=== PATIENT | male | born 1955 | race Caucasian/White ===

== ENCOUNTER 2016-11-19 15:10 | Emergency (ER) | payer MEDICARE, MEDICAID ==
[2016-11-19 16:13] LABS: Hematocrit 48 % (42-52); Hemoglobin 16.2 g/dl (14.0-18.0); Mean Corpuscular HGB Conc 34 g/dl (31-36); Mean Corpuscular Hemoglobin 32 pg (27-31); Mean Corpuscular Volume 94 fL (80-94); Mean Platelet Volume 8 um3 (7.4-10.4); Red Blood Count 5.13 10^6/ul (4.0-5.4); Red Cell Distribution Width 14 % (10.5-15); White Blood Count 9.2 10^3/ul (3.5-10.8)
[2016-11-19] MEDS ORDERED: NS 0.9% 1000 ML* 1,000 ML IV ONE ×3 (16:17→20:17)
[2016-11-19 16:30] LABS: Troponin I 0.02 ng/mL (<0.04)
[2016-11-19 16:42] LABS: Albumin 3.8 g/dL (3.2-5.2); BUN/Creatinine Ratio 21.8 (8-20); Calcium 9.4 mg/dL (8.6-10.3); EGFR African American 76.5 (>60); EGFR Non-African American 59.5 (>60); Potassium 4.9 mmol/L (3.5-5.0); Total Bilirubin 0.4 mg/dL (0.2-1.0); Total Protein 6.8 g/dL (6.4-8.9)
--- NOTE | 2016-11-19 16:45 | RAD ---
INDICATION: Chest pain COMPARISON: None TECHNIQUE: An AP portable view obtained at 1630 hours is submitted. FINDINGS: Bones/Soft Tissues: There are no acute bony findings. Cardiomediastinal: The cardiomediastinal silhouette is normal. Lungs: There are no infiltrates. Pleura: There are no pleural effusions. Other: None IMPRESSION: NO ACTIVE DISEASE
[2016-11-19] MEDS ORDERED: Insulin REGULAR(*) 1 UNITS UNIT IV PUSH ONE (16:49)
[2016-11-19 22:42] VITALS: BP 108/52
--- NOTE | 2016-11-21 06:41 | ED ---
Akil Torrez Janilya, scribed for Darrel Duke MD on 11/19/16 at 1643 . Abdominal Pain/Male - HPI Summary HPI Summary: A 61 y/o was BIBA to [facility] [place] for "having abnormal lab results" from yesterday's visit to the hospital. Pt reports he felt symptomatic for 2 weeks. The main complaint today is abd pain, specifically bloating, as well as back pain. He also reports vomiting and mild constipation. Pt denies diarrhea. Severity rated 8/10. - History of Current Complaint Chief Complaint: EDChestPainROMI Stated Complaint: DIABETIC ISSUES Time Seen by Provider: 11/19/16 15:55 Hx Obtained From: Patient Onset/Duration: Gradual Onset, Lasting Days, Still Present Timing: Constant Severity Initially: Moderate Severity Currently: Moderate Pain Intensity: 8 Pain Scale Used: 0-10 Numeric Associated Signs And Symptoms: Positive: Back Pain, Vomiting, Other - mild constipation. Negative: Diarrhea - Allergies/Home Medications Allergies/Adverse Reactions: Allergies Allergy/AdvReac Type Severity Reaction Status Date / Time Aspirin Allergy GI Upset Verified 08/27/15 11:48 ENVIRONMENTAL Allergy Rash And Uncoded 08/27/15 11:47 Itching WOOL Allergy Runny Nose Uncoded 08/27/15 11:46 PMH/Surg Hx/FS Hx/Imm Hx Endocrine/Hematology History: Reports: Hx Diabetes Cardiovascular History: Reports: Hx Congestive Heart Failure, Hx Hypercholesterolemia, Hx Hypertension, Other Cardiovascular Problems/Disorders - "Heart Disease" Respiratory History: Reports: Hx Chronic Obstructive Pulmonary Disease (COPD) GI History: Reports: Hx Gastroesophageal Reflux Disease, Other GI Disorders - "Hernia" History: Reports: Hx Kidney Stones, Hx Renal Disease - KIDNEY STONES BILATERALLY Musculoskeletal History: Reports: Hx Arthritis, Hx Back Problems, Hx Orthopedic Injury - Herniated discs, coccyx fracture, "degenerative spine" Sensory History: Reports: Hx Contacts or Glasses Opthamlomology History: Reports: Hx Contacts or Glasses Neurological History: Reports: Hx Migraine, Other Neuro Impairments/Disorders - Parkinsons, bilateral leg neurophathy Psychiatric History: Reports: Hx Anxiety, Hx Depression, Hx Inpatient Treatment , Hx Community Mental Health Tx, Hx Suicide Attempt - OD Denies: Hx Eating Disorder, Hx of Violent Episodes Against Others - Surgical History Surgery Procedure, Year, and Place: Appendectomy Infectious Disease History: No Infectious Disease History: Denies: Traveled Outside the [place] in Last 30 Days - Family History Known Family History: Positive: Cardiac Disease, Hypertension, Diabetes - Social History Alcohol Use: None Substance Use Type: Reports: Marijuana Substance Use Comment - Amount & Last Used: DAILY, LAST USED YESTERDAY Hx Tobacco Use: Yes Smoking Status (MU): Heavy Every Day Tobacco Smoker Review of Systems Positive: Abdominal Pain - bloating , Vomiting, Other - mild constipation. Negative: Diarrhea Positive: Arthralgia - back pain, Myalgia - back pain All Other Systems Reviewed And Are Negative: Yes Physical Exam - Summary Physical Exam Summary: GENERAL EXAM GENERAL: Awake, alert, oriented, no acute distress, very pleasant HEENT: Head is normocephalipolc, atraumatic, anicteric sclera, clear conjunctiva , mucous membranes moist, no erythema, no discharge, no lesions, neck is supple , trachea is midline, no JVD CARDIAC: Regular rate and rhythm, S1, S2, no rub, no murmur, no gallop, 2+ radial and pedal pulses bilaterally RESPIRATORY: Clear to auscultation bilaterally with no rales, rhonchi, or wheezes, non-tender ABDOMEN: Bowel sounds positive, no bruit, soft, non-tender, no CVA tenderness EXTREMITIES: No edema, warm, dry, moving all extremities in a grossly normal manner NEUROLOGICAL: Mood is appropriate, moving all extremities in a grossly normal manner Triage Information Reviewed: Yes Vital Signs On Initial Exam: Initial Vitals Temp Pulse Resp BP Pulse Ox 97.3 F 81 18 128/80 94 11/19/16 15:37 11/19/16 15:37 11/19/16 15:37 11/19/16 15:37 11/19/16 15:37 Vital Signs Reviewed: Yes - Dolly Coma Scale Coma Scale Total: 15 Diagnostics - Vital Signs Vital Signs Temp Pulse Resp BP Pulse Ox 11/19/16 16:05 82 18 111/68 90 11/19/16 16:00 17 88/68 11/19/16 15:50 113/37 11/19/16 15:37 97.3 F 81 18 128/80 94 - Laboratory Lab Results: Lab Results 11/19/16 11/19/16 11/19/16 Range/Units 15:47 16:00 16:00 WBC 9.2 (3.5-10.8) 10^3/ul RBC 5.13 (4.0-5.4) 10^6/ul Hgb 16.2 (14.0-18.0) g/dl Hct 48 (42-52) % MCV 94 (80-94) fL MCH 32 H (27-31) pg MCHC 34 (31-36) g/dl RDW 14 (10.5-15) % Plt Count 199 (150-450) 10^3/ul MPV 8 (7.4-10.4) um3 Neut % (Auto) 56.7 (38-83) % Lymph % (Auto) 31.1 (25-47) % Oto[place] % (Auto) 7.8 (1-9) % Eos % (Auto) 3.0 (0-6) % Baso % (Auto) 1.4 (0-2) % Absolute Neuts (auto) 5.2 (1.5-7.7) 10^3/ul Absolute Lymphs (auto) 2.9 (1.0-4.8) 10^3/ul Absolute Monos (auto) 0.7 (0-0.8) 10^3/ul Absolute Eos (auto) 0.3 (0-0.6) 10^3/ul Absolute Basos (auto) 0.1 (0-0.2) 10^3/ul Absolute Nucleated RBC 0 10^3/ul Nucleated RBC % 0 Sodium Pending Potassium Pending Chloride Pending Carbon Dioxide Pending Anion Gap Pending BUN Pending Creatinine Pending Est GFR ( Amer) Pending Est GFR (Non-Af Amer) Pending BUN/Creatinine Ratio Pending Glucose Pending POC Glucose (mg/dL) > 444 H* (74-106) mg/dL Calcium Pending Total Bilirubin Pending AST Pending ALT Pending Alkaline Phosphatase Pending Total Creatine Kinase Pending CK-MB (CK-2) 2.2 (0.6-6.3) ng/mL Myoglobin 18.1 (17.4-105.7) ng/mL Troponin I 0.02 (<0.04) ng/mL B-Natriuretic Peptide ( - 100) pg/mL Total Protein Pending Albumin Pending Globulin Pending Albumin/Globulin Ratio Pending 11/19/16 Range/Units 16:00 WBC (3.5-10.8) 10^3/ul RBC (4.0-5.4) 10^6/ul Hgb (14.0-18.0) g/dl Hct (42-52) % MCV (80-94) fL MCH (27-31) pg MCHC (31-36) g/dl RDW (10.5-15) % Plt Count (150-450) 10^3/ul MPV (7.4-10.4) um3 Neut % (Auto) (38-83) % Lymph % (Auto) (25-47) % Otoe % (Auto) (1-9) % Eos % (Auto) (0-6) % Baso % (Auto) (0-2) % Absolute Neuts (auto) (1.5-7.7) 10^3/ul Absolute Lymphs (auto) (1.0-4.8) 10^3/ul Absolute Monos (auto) (0-0.8) 10^3/ul Absolute Eos (auto) (0-0.6) 10^3/ul Absolute Basos (auto) (0-0.2) 10^3/ul Absolute Nucleated RBC 10^3/ul Nucleated RBC % Sodium Potassium Chloride Carbon Dioxide Anion Gap BUN Creatinine Est GFR ( Amer) Est GFR (Non-Af Amer) BUN/Creatinine Ratio Glucose POC Glucose (mg/dL) (74-106) mg/dL Calcium Total Bilirubin AST ALT Alkaline Phosphatase Total Creatine Kinase CK-MB (CK-2) (0.6-6.3) ng/mL Myoglobin (17.4-105.7) ng/mL Troponin I (<0.04) ng/mL B-Natriuretic Peptide 60 ( - 100) pg/mL Total Protein Albumin Globulin Albumin/Globulin Ratio Result Diagrams: 11/19/16 16:00 11/19/16 19:00 Lab Statement: Any lab studies that have been ordered have been reviewed, and results considered in the medical decision making process. - Radiology CXR Xray Interpretation: No Acute Changes Radiology Interpretation Completed By: Radiologist - IMPRESSION: No active disease Abdominal Pain Fem Course/Dx - Diagnoses Provider Diagnoses: Hyperglycemia - Provider Notifications Discussed Care Of Patient With: Dr. Glynn (PCP) at 2139: discussed patient care , recommended changing dosage of Metformin from 500 mg to 1000 mg. Discharge - Discharge Plan Condition: Stable Disposition: HOME Patient Education Materials: Diabetic Hyperglycemia (ED) Referrals: Stanislav Damian MD [Primary Care Provider] - 1 Day (Tomorrow at 10:00 AM) Additional Instructions: Change Metformin dosage from 500 mg to 1000 mg. There is an appointment tomorrow at 10:00 AM at [facility] with Dr. Damian or Dr. Glynn. The documentation as recorded by the Akil ramirez Janilya accurately reflects the service I personally performed and the decisions made by , Darrel Duke MD.
== END 2016-11-19 22:39 | disposition home or self-care (01) ==
LOC: ED 15:10
DX: R73.9 Hyperglycemia, unspecified (principal); R07.9 Chest pain, unspecified; M54.9 Dorsalgia, unspecified; R11.10 Vomiting, unspecified; F17.210 Nicotine dependence, cigarettes, uncomplicated; R10.9 Unspecified abdominal pain
CPT/HCPCS: 36415; 71010; 80053; 82550; 82553; 83605; 83874; 83880; 84484; 85025; 93005; 99282

== ENCOUNTER 2017-03-26 09:54 | Inpatient (IN) | payer MEDICARE, MEDICAID ==
[2017-03-26 10:38] LABS: Hematocrit 45 % (42-52); Hemoglobin 15.3 g/dl (14.0-18.0); Mean Corpuscular HGB Conc 34 g/dl (31-36); Mean Corpuscular Hemoglobin 31 pg (27-31); Mean Corpuscular Volume 92 fL (80-94); Mean Platelet Volume 8 um3 (7.4-10.4); Red Blood Count 4.91 10^6/ul (4.0-5.4); Red Cell Distribution Width 15 % (10.5-15)
[2017-03-26 10:55] LABS: ALT 4 U/L (7-52); AST 11 U/L (13-39); Albumin 3.9 g/dL (3.2-5.2); Alkaline Phosphatase 60 U/L (34-104); Anion Gap 8 mmol/L (2-11); BUN/Creatinine Ratio 22.8 (8-20); Blood Urea Nitrogen 18 mg/dL (6-24); CO2 Carbon Dioxide 30 mmol/L (22-32); Calcium 9.4 mg/dL (8.6-10.3); Chloride 98 mmol/L (101-111); EGFR African American 128.7 (>60); Globulin 2.9 g/dL (2-4); Glucose 163 mg/dL (70-100); Magnesium 1.5 mg/dL (1.9-2.7); Potassium 4.2 mmol/L (3.5-5.0); Sodium 136 mmol/L (133-145); Total Protein 6.8 g/dL (6.4-8.9)
[2017-03-26] MEDS ORDERED: HYDROcodone/ACETAMIN 5-325 MG* 1 TAB PO ONE (10:58)
[2017-03-26 11:03] LABS: Troponin I 0.05 ng/mL (<0.04)
[2017-03-26 11:11] LABS: Alcohol < 10 mg/dL (<10)
--- NOTE | 2017-03-26 11:18 | RAD ---
HISTORY: Syncope, head trauma COMPARISONS: August 27, 2015 TECHNIQUE: Multiple contiguous axial CT scans were obtained of the head without intravenous contrast. FINDINGS: HEMORRHAGE/INFARCT: There is no hemorrhage or acute infarct. MASSES/SHIFT: There is no mass or shift. EXTRA-AXIAL SPACES: There are no extra-axial fluid collections. SULCI AND VENTRICLES: The sulci and ventricles are normal in size and position for the patient's stated age. CEREBRUM: There are no focal parenchymal abnormalities. BRAINSTEM: There are no focal parenchymal abnormalities. CEREBELLUM: There are no focal parenchymal abnormalities. VESSELS: The vessels are grossly normal. PARANASAL SINUSES: The paranasal sinuses are clear. ORBITS: The orbits are unremarkable. BONES AND SOFT TISSUE: No bone or soft tissue abnormalities are noted. OTHER: None IMPRESSION: NO ACUTE INTRACRANIAL PATHOLOGY.
[2017-03-26 11:22] LABS: TSH (Thyroid Stimulating Horm) 1.87 mcIU/mL (0.34-5.60)
[2017-03-26 12:31] LABS: Urine Bilirubin Negative (Negative); Urine Glucose Negative (Negative); Urine Nitrite Negative (Negative)
[2017-03-26 12:46] LABS: Benzodiazepine Urine Screen None Detected (None Detect)
[2017-03-26] MEDS ORDERED: Ondansetron INJ* 2 MG/ML VIAL IV PRN (12:59)
[2017-03-26] MEDS ORDERED: Albuterol 2.5 MG/3 ML NEB.SOL* (0.083%) INH PRN (12:59)
[2017-03-26] MEDS ORDERED: cefTRIAXone VIAL(*) 1,000 MG in NS 0.9% 50 ML* 50 ML IVPB SCH (13:00)
[2017-03-26] MEDS ORDERED: Azithromycin IV(*) 500 MG in NS 0.9% 250 ML* 250 ML IVPB SCH (13:00)
[2017-03-26] MEDS ORDERED: diPHENhydraMINE PO* 25 MG PO PRN (13:01)
[2017-03-26] MEDS ORDERED: Dextrose 50% Syringe 50 ML* 25 GM/50 ML SYRINGE IV PUSH PRN (13:01)
[2017-03-26] MEDS ORDERED: Magnesium Sulfate 2 GM IV* 2 GM/50 ML BAG IVPB ONE (13:04)
--- NOTE | 2017-03-26 13:09 | RAD ---
Indication: Medial LEFT tibial plateau pain post fall. Comparison: None. Technique: LEFT knee: AP, tunnel, crosstable lateral, sunrise views. Report: Mild tricompartmental osteophytosis. Mild medial joint space narrowing. Negative for effusion or fracture. Unremarkable soft tissue contours. IMPRESSION: 1. No traumatic injury evident. 2. Kellgren and Clifton grade 2 osteoarthritis.
--- NOTE | 2017-03-26 13:17 | RAD ---
HISTORY: Fall, right shoulder pain COMPARISONS: None VIEWS: 4, Frontal internal rotation, external rotation, outlet, and axillary views of the right shoulder FINDINGS: BONE DENSITY: Normal. BONES: There is no displaced fracture. JOINTS: There is mild osteoarthritis of the a.c. and glenohumeral joints. ALIGNMENT: There is no dislocation. SOFT TISSUES: Unremarkable. OTHER FINDINGS: None. IMPRESSION: OSTEOARTHRITIS. NO ACUTE OSSEOUS INJURY. IF SYMPTOMS PERSIST, RECOMMEND REPEAT IMAGING.
--- NOTE | 2017-03-26 13:42 | RAD ---
HISTORY: cough COMPARISONS: 11/19/2016 VIEWS:1: Single frontal portable view of the chest at 1:28 PM FINDINGS: LINES AND TUBES: None. CARDIOMEDIASTINAL SILHOUETTE: The cardiac silhouette is enlarged. The cardiomediastinal silhouette is otherwise normal for portable technique. PLEURA: The costophrenic angles are sharp. No pleural abnormalities are noted. LUNG PARENCHYMA: There is a diffuse reticular pattern with indistinct pulmonary vessels. ABDOMEN: The upper abdomen is clear. There is no subphrenic gas. BONES AND SOFT TISSUES: No bone or soft tissue abnormalities are noted. IMPRESSION: CARDIOMEGALY WITH PULMONARY INTERSTITIAL EDEMA.
[2017-03-26] MEDS ORDERED: Perflutren Lipid Microsphere* 3 ML VIAL ONE (13:58)
[2017-03-26] MEDS: Albuterol/Ipratropium NEB.SOL* Albuterol 2.5 MG/Ipratropium 0.5 MG 3 ML INH SCH ×3 (14:01→20:15)
[2017-03-26] MEDS: cefTRIAXone VIAL(*) 1,000 MG in NS 0.9% 50 ML* 50 ML IVPB SCH (14:18)
[2017-03-26] MEDS: Azithromycin IV(*) 500 MG in NS 0.9% 250 ML* 250 ML IVPB SCH (15:19)
[2017-03-26] MEDS: predniSONE TAB* 20 MG PO SCH (16:14)
[2017-03-26] MEDS: HYDROcodone/ACETAMIN 5-325 MG* 1 TAB PO PRN (16:16)
[2017-03-26] MEDS: Heparin VIAL(*) 5000 UNITS/ML VIAL (FIVE THOUSAND) SUBCUT SCH ×2 (16:18→21:57)
[2017-03-26] MEDS ORDERED: Insulin LISPRO* 1 UNITS UNIT SUBCUT SCH (16:30)
[2017-03-26] MEDS: Carbidopa/Levodop 10/100 MG TAB(*) PO SCH ×2 (16:31→22:21)
--- NOTE | 2017-03-26 16:33 | ECHO ---
Patient: RICHARD RICO [facility] Rec#: [id number] : 1955 Date: 03/26/2017 Age: 61y Height: 173 cm / 68.1 in Weight: 154.2 kg / 339.9 lbs Sex: M BSA: 2.56 Room#: [facility] Admit Date#: 03/26/2017 Referring: [place] Reading: Joey Saucedo MD [employer] Cutter: Cheri Salazar RN RDCS CC: Stanislav Damian MD Transthoracic Echocardiogram Indication: Syncope, elevated troponin level BP: 135/59 HR: 98 Rhythm: NSR Findings History: CHF, dyslipidemia, HTN, COPD, GERD, arthritis, migraines, anxiety, depression, prior suicide attempt Technical Comments: The study is technically limited due to poor acoustic windows. The study is technically limited due to patient body habitus. The study is technically limited due to the patient's history of COPD. Completed at 1615. Left Ventricle: The left ventricular chamber size is normal. Moderate concentric left ventricular hypertrophy is observed. Global left ventricular wall motion and contractility are within normal limits. The left ventricle appears hyperdynamic. The estimated ejection fraction is greater than 65%. There is an E to A reversal in the mitral valve flow pattern suggestive of diastolic dysfunction. Left Atrium: The left atrial chamber size is normal. Right Ventricle: The right ventricular cavity size is normal. The right ventricular global systolic function is normal. Right Atrium: The right atrium is not well visualized.but appears grossly normal on 2D imaging. Aortic Valve: The aortic valve structure is not well visualized. There is no evidence of aortic valve thickening. There is no evidence of aortic regurgitation. There is no evidence of aortic stenosis.Increased aortic valve and LVOT gradients acknowledged however no significant aortic stenosis noted on 2-D limited PSLAx imaging and DI appears normal. Increased aortic valve and LVOT gradients consistent with hyperdynamic state. Mitral Valve: The mitral valve structure is not well visualized. There is no evidence of mitral regurgitation. Tricuspid Valve: The tricuspid valve structure is not well visualized. Pulmonic Valve: The pulmonic valve structure is not well visualized. There is no evidence of pulmonic regurgitation. There is no pulmonic stenosis. Pericardium: There is no significant pericardial effusion. A pericardial fat pad is visualized. Aorta: There is no dilatation of the ascending aorta. The aortic arch is not well visualized. There is no dilation of the aortic root. Pulmonary Artery: The main pulmonary artery is not well visualized. Venous: The venous system is not well visualized. The inferior vena cava is not visualized. Contrast: Definity was used to optimize study. A total of 3 ml of Definity was given IV to enhance endocardial borders. Conclusions The left ventricle appears hyperdynamic. The estimated ejection fraction is greater than 65%. Global left ventricular wall motion and contractility are within normal limits. Moderate concentric left ventricular hypertrophy is observed. There is an E to A reversal in the mitral valve flow pattern suggestive of diastolic dysfunction. Normal cardiac chamber sizes. Functionally benign heart valves. There is no prior echocardiogram available to compare with at this time. Measurements Name Value Normal Range RVIDd (AP) 2D 2.6 cm (0.9 - 2.6) RVAW (2D) 0.7 cm (0.2 - 0.5) IVSd (2D) 1.6 cm (0.6 - 1) LVPWd (2D) 1.3 cm (0.6 - 1) LVIDd (2D) 4 cm (3.6 - 5.4) Aortic Annulus 2.3 cm (1.4 - 2.6) Ao root diameter (2D) 3.1 cm (2.1 - 3.5) Ascending Ao 3.3 cm (2.1 - 3.4) LA dimension (AP) 2D 3.5 cm (2.3 - 3.8) Name Value Normal Range MV E-wave Vmax 0.75 m/sec - MV deceleration time 312 msec - MV A-wave Vmax 1 m/sec - MV E:A ratio 0.7 ratio - Name Value Normal Range AV Vmax 2.9 m/sec - AV VTI 41.4 cm - AV peak gradient 33.4 mmHg - AV mean gradient 19.3 mmHg - LVOT Vmax 2.2 m/sec - LVOT VTI 35.6 cm - LVOT peak gradient 19.8 mmHg - LVOT mean gradient 9.9 mmHg - DOI (VTI) 0.86 ratio - Name Value Normal Range PV Vmax 1.5 m/sec -
[2017-03-26] MEDS: Gabapentin CAP(*) 300 MG PO SCH ×2 (17:29→22:00)
--- NOTE | 2017-03-26 17:37 | ED ---
Syncope/Near Syncope - HPI Summary HPI Summary: Patient presents with left knee pain and right shoulder pain from a syncopal he thinks happened either Wednesday or Wednesday, 3 or 4 days ago. He says he stood up and was moving around when he suddenly felt like he was going to black out and then the next thing he knew, "he was down". He was able to get up and continue with activities but his knee and shoulder pain increased so he thought he should be checked. At the time of the syncopal episode he denies feeling SOB, CP , HU, nausea or sweaty. He has had episodes like this in the past, but never - History Of Current Complaint Chief Complaint: EDSyncope Time Seen by Provider: 03/26/17 10:06 Hx Obtained From: Patient Onset/Duration: Sudden Onset, Resolved Timing: Minutes Context: Unwitnessed Activity At Onset: Exertion Associated Head Trauma: No Aggravating Factor(s): Position Change Alleviating Factor(s): Spontaneous Resolution Associated Signs And Symptoms: Negative - Allergies/Home Medications Allergies/Adverse Reactions: Allergies Allergy/AdvReac Type Severity Reaction Status Date / Time Aspirin Allergy GI Upset Verified 03/26/17 10:18 ENVIRONMENTAL Allergy Rash And Uncoded 03/26/17 10:18 Itching WOOL Allergy Runny Nose Uncoded 03/26/17 10:18 Home Medications: Home Medications Cetirizine* [ZyrTEC 10 MG TAB*] 10 mg PO DAILY 03/26/17 [History Confirmed 03/26] DULoxetine DR CAP* [Cymbalta CAP*] 30 mg PO DAILY 03/26/17 [History Confirmed ] Famotidine TAB 40 MG(NF) [Pepcid TAB 40 MG(NF)] 40 mg PO BID 03/26/17 [History Confirmed 03/26/17] Gabapentin CAP(*) [Neurontin 300 CAP(*)] 300 mg PO BID MDD 1200 mg 03/26/17 [ History Confirmed 03/26/17] Gabapentin CAP(*) [Neurontin 300 CAP(*)] 600 mg PO BEDTIME MDD 1200 mg 03/26/17 [History Confirmed 03/26/17] HYDROcodone/ACETAMIN 5-325 MG* [[place] 5-325 TAB*] 1 - 2 tab PO Q6H PRN MDD 8 tabs 03/26/17 [History Confirmed 03/26/17] Hydrochlorothiazide TAB* [Hydrodiuril TAB*] 25 mg PO DAILY 03/26/17 [History Confirmed 03/26/17] Insulin GLARGINE(*) [Lantus(*)] 25 units SUBCUT BEDTIME 03/26/17 [History Confirmed 03/26/17] Lisinopril TAB* [Prinivil TAB*] 10 mg PO DAILY 03/26/17 [History Confirmed 03/26] Olopatadine 0.1% OPHTH (NF) [Patanol 0.1% OPHTH (NF)] 1 drop OPHTHALMIC BID [History Confirmed 03/26/17] Pravastatin (NF) [Pravachol (NF)] 10 mg PO DAILY 03/26/17 [History Confirmed ] diPHENhydraMINE PO* [Benadryl PO 25 MG TAB*] 50 mg PO BEDTIME 03/26/17 [History Confirmed 03/26/17] metFORMIN* [Glucophage 1000 MG TAB *] 1,000 mg PO BID 03/26/17 [History Confirmed 03/26/17] PMH/Surg Hx/FS Hx/Imm Hx Endocrine/Hematology History: Reports: Hx Diabetes - Controlled w/ pills and insulin Cardiovascular History: Reports: Hx Congestive Heart Failure, Hx Hypercholesterolemia, Hx Hypertension, Other Cardiovascular Problems/Disorders - "Heart Disease" Respiratory History: Reports: Hx Chronic Obstructive Pulmonary Disease (COPD) GI History: Reports: Hx Gastroesophageal Reflux Disease, Other GI Disorders - "Hernia" History: Reports: Hx Kidney Stones, Hx Renal Disease - KIDNEY STONES BILATERALLY Musculoskeletal History: Reports: Hx Arthritis, Hx Back Problems, Hx Orthopedic Injury - Herniated discs, coccyx fracture, "degenerative spine" Sensory History: Reports: Hx Contacts or Glasses - Pt has glasses script but no glasses Denies: Hx Hearing Aid Opthamlomology History: Reports: Hx Contacts or Glasses - Pt has glasses script but no glasses Neurological History: Reports: Hx Migraine, Hx Transient Ischemic Attacks (TIA) - x5, Other Neuro Impairments/Disorders - Parkinsons, Bilateral leg neurophathy Psychiatric History: Reports: Hx Anxiety, Hx Depression, Hx Inpatient Treatment , Hx Community Mental Health Tx, Hx Bipolar Disorder, Hx Suicide Attempt - OD Denies: Hx Eating Disorder, Hx of Violent Episodes Against Others - Surgical History Surgery Procedure, Year, and Place: Appendectomy Infectious Disease History: No Infectious Disease History: Denies: Traveled Outside the [place] in Last 30 Days - Family History Known Family History: Positive: Cardiac Disease, Hypertension, Diabetes - Social History Occupation: Unemployed Lives: Alone Alcohol Use: None Substance Use Type: Reports: Marijuana Substance Use Comment - Amount & Last Used: 1 joint a day Hx Tobacco Use: Yes Smoking Status (MU): Heavy Every Day Tobacco Smoker Cessation Counseling: Patient Advised to Stop Review of Systems Negative: Fever, Chills Negative: Chest Pain Negative: Shortness Of Breath Negative: Abdominal Pain Positive: Myalgia, Decreased ROM Negative: Bruising Negative: Headache, Weakness, Paresthesia, Numbness All Other Systems Reviewed And Are Negative: Yes Physical Exam Triage Information Reviewed: Yes Vital Signs On Initial Exam: Initial Vitals Pulse Pulse Ox 87 95 03/26/17 10:06 03/26/17 10:06 Vital Signs Reviewed: Yes Appearance: Positive: Well-Appearing, Pain Distress, Obese Skin: Positive: Warm, Skin Color Reflects Adequate Perfusion, Dry, Soft Head/Face: Positive: Normal Head/Face Inspection Eyes: Positive: EOMI, RIC, Conjunctiva Clear ENT: Positive: Hearing grossly normal, Pharynx normal, TMs normal Neck: Positive: Supple, Nontender Respiratory/Lung Sounds: Positive: Clear to Auscultation, Breath Sounds Present Cardiovascular: Positive: RRR Abdomen Description: Positive: Nontender, Soft. Negative: Guarding Bowel Sounds: Positive: Present Musculoskeletal: Positive: Limited @ - right shoulder FF/abd limited by pain; left knee flexion and extension limited by pain, Pain @ - TTP right deltoid; medial joint line of left knee TTP Neurological: Positive: Sensory/Motor Intact, Alert, Oriented to Person Place, Time, CN Intact II-III, NV Bundle Intact Distally, Unable to Assess Gait Psychiatric: Positive: Affect/Mood Appropriate AVPU Assessment: Alert - Dolly Coma Scale Coma Scale Total: 15 Diagnostics - Vital Signs Vital Signs Temp Pulse Resp BP Pulse Ox 03/26/17 12:30 78 109/76 96 03/26/17 12:08 69 97 03/26/17 12:07 135/59 03/26/17 11:28 72 98 03/26/17 11:00 75 24 134/73 96 03/26/17 10:30 82 17 138/65 97 03/26/17 10:08 97.8 F 83 24 156/73 94 03/26/17 10:07 86 156/73 95 03/26/17 10:06 87 95 - Laboratory Lab Results: Lab Results 03/26/17 03/26/17 03/26/17 Range/Units 10:27 10:27 10:27 WBC 8.0 (3.5-10.8) 10^3/ul RBC 4.91 (4.0-5.4) 10^6/ul Hgb 15.3 (14.0-18.0) g/dl Hct 45 (42-52) % MCV 92 (80-94) fL MCH 31 (27-31) pg MCHC 34 (31-36) g/dl RDW 15 (10.5-15) % Plt Count 224 (150-450) 10^3/ul MPV 8 (7.4-10.4) um3 Neut % (Auto) 61.4 (38-83) % Lymph % (Auto) 26.2 (25-47) % [place] % (Auto) 7.5 (1-9) % Eos % (Auto) 3.6 (0-6) % Baso % (Auto) 1.3 (0-2) % Absolute Neuts (auto) 4.9 (1.5-7.7) 10^3/ul Absolute Lymphs (auto) 2.1 (1.0-4.8) 10^3/ul Absolute Monos (auto) 0.6 (0-0.8) 10^3/ul Absolute Eos (auto) 0.3 (0-0.6) 10^3/ul Absolute Basos (auto) 0.1 (0-0.2) 10^3/ul Absolute Nucleated RBC 0 10^3/ul Nucleated RBC % 0 Sodium 136 (133-145) mmol/L Potassium 4.2 (3.5-5.0) mmol/L Chloride 98 L (101-111) mmol/L Carbon Dioxide 30 (22-32) mmol/L Anion Gap 8 (2-11) mmol/L BUN 18 (6-24) mg/dL Creatinine 0.79 (0.67-1.17) mg/dL Est GFR ( Amer) 128.7 (>60) Est GFR (Non-Af Amer) 100.0 (>60) BUN/Creatinine Ratio 22.8 H (8-20) Glucose 163 H (70-100) mg/dL Lactic Acid 1.6 (0.5-2.0) mmol/L Calcium 9.4 (8.6-10.3) mg/dL Magnesium 1.5 L (1.9-2.7) mg/dL Total Bilirubin 0.30 (0.2-1.0) mg/dL AST 11 L (13-39) U/L ALT 4 L (7-52) U/L Alkaline Phosphatase 60 (34-104) U/L Troponin I 0.05 H* (<0.04) ng/mL Total Protein 6.8 (6.4-8.9) g/dL Albumin 3.9 (3.2-5.2) g/dL Globulin 2.9 (2-4) g/dL Albumin/Globulin Ratio 1.3 (1-3) TSH 1.87 (0.34-5.60) mcIU/mL Urine Color Urine Appearance Urine pH (5-9) Ur Specific [place] (1.010-1.030) Urine Protein (Negative) Urine Ketones (Negative) Urine Blood (Negative) Urine Nitrate (Negative) Urine Bilirubin (Negative) Urine Urobilinogen (Negative) Ur Leukocyte Esterase (Negative) Urine Glucose (Negative) Urine Opiates Screen (None Detect) Ur Barbiturates Screen (None Detect) Ur Phencyclidine Scrn (None Detect) Ur Amphetamines Screen (None Detect) U Benzodiazepines Scrn (None Detect) Urine Cocaine Screen (None Detect) U Cannabinoids Screen (None Detect) Serum Alcohol < 10 (<10) mg/dL 03/26/17 03/26/17 Range/Units 12:10 12:10 WBC (3.5-10.8) 10^3/ul RBC (4.0-5.4) 10^6/ul Hgb (14.0-18.0) g/dl Hct (42-52) % MCV (80-94) fL MCH (27-31) pg MCHC (31-36) g/dl RDW (10.5-15) % Plt Count (150-450) 10^3/ul MPV (7.4-10.4) um3 Neut % (Auto) (38-83) % Lymph % (Auto) (25-47) % [place] % (Auto) (1-9) % Eos % (Auto) (0-6) % Baso % (Auto) (0-2) % Absolute Neuts (auto) (1.5-7.7) 10^3/ul Absolute Lymphs (auto) (1.0-4.8) 10^3/ul Absolute Monos (auto) (0-0.8) 10^3/ul Absolute Eos (auto) (0-0.6) 10^3/ul Absolute Basos (auto) (0-0.2) 10^3/ul Absolute Nucleated RBC 10^3/ul Nucleated RBC % Sodium (133-145) mmol/L Potassium (3.5-5.0) mmol/L Chloride (101-111) mmol/L Carbon Dioxide (22-32) mmol/L Anion Gap (2-11) mmol/L BUN (6-24) mg/dL Creatinine (0.67-1.17) mg/dL Est GFR ( Amer) (>60) Est GFR (Non-Af Amer) (>60) BUN/Creatinine Ratio (8-20) Glucose (70-100) mg/dL Lactic Acid (0.5-2.0) mmol/L Calcium (8.6-10.3) mg/dL Magnesium (1.9-2.7) mg/dL Total Bilirubin (0.2-1.0) mg/dL AST (13-39) U/L ALT (7-52) U/L Alkaline Phosphatase (34-104) U/L Troponin I (<0.04) ng/mL Total Protein (6.4-8.9) g/dL Albumin (3.2-5.2) g/dL Globulin (2-4) g/dL Albumin/Globulin Ratio (1-3) TSH (0.34-5.60) mcIU/mL Urine Color Yellow Urine Appearance Clear Urine pH 6.0 (5-9) Ur Specific [place] 1.012 (1.010-1.030) Urine Protein Negative (Negative) Urine Ketones Negative (Negative) Urine Blood Negative (Negative) Urine Nitrate Negative (Negative) Urine Bilirubin Negative (Negative) Urine Urobilinogen Negative (Negative) Ur Leukocyte Esterase Negative (Negative) Urine Glucose Negative (Negative) Urine Opiates Screen Presumptive positive H (None Detect) Ur Barbiturates Screen None detected (None Detect) Ur Phencyclidine Scrn None detected (None Detect) Ur Amphetamines Screen None detected (None Detect) U Benzodiazepines Scrn None detected (None Detect) Urine Cocaine Screen None detected (None Detect) U Cannabinoids Screen Presumptive positive H (None Detect) Serum Alcohol (<10) mg/dL Result Diagrams: 03/27/17 05:12 03/27/17 05:17 Lab Statement: Any lab studies that have been ordered have been reviewed, and results considered in the medical decision making process. - Radiology No standard instances Xray Interpretation: No Acute Changes Radiology Interpretation Completed By: Radiologist - CT No standard instances CT Interpretation: No Acute Changes CT Interpretation Completed By: Radiologist - EKG No standard instances Cardiac Rate: NL EKG Rhythm: Sinus Rhythm ST Segment: Normal Ectopy: None EKG Comparison: No Significant Change Course/Dx - Diagnoses Differential Diagnosis/HQI/PQRI: Positive: Cerebral Vascular Accident, Coronary Artery Disease, Dysrhythmia, Hyperventilation, Hypoglycemia, Hypovolemia, Metabolic Reaction, Myocardial Infarction, Seizure, Transient Ischemic Attack, Vasovagal Episode Provider Diagnoses: Syncope, Left knee pain, Right shoulder pain, Elevated troponin - Physician Notifications Discussed Care Of Patient With: Dr. Love, ED attending; Dr. Glynn, [facility] for admission. Instructed by Provider To: Admit As Inpatient Discharge - Discharge Plan Condition: Stable Disposition: ADMITTED TO [facility]
[2017-03-26] MEDS: Mometasone/Formoter 200/5 MDI INH SCH (20:15)
[2017-03-26] MEDS: Famotidine TAB* 20 MG PO SCH (21:52)
[2017-03-26] MEDS: Insulin GLARGINE(*) 1 UNITS UNIT SUBCUT SCH (21:59)
--- NOTE | 2017-03-26 22:02 | HP ---
HISTORY AND PHYSICAL: ADDENDUM: It was brought to our attention by the patient's visiting nurse that on Wednesday this past week, the patient had had friends over and when the nurse went over to do his assessment, it was no federico that there was drinking involved and she was concerned for her own safety and had left the situa tion. The patient did not reveal this information to me, but it was brought to our attention. This may have certainly contributed to his syncope as he was intoxicated. However, again it was not bro ught to our attention by the patient. MAR BOJORQUEZ, [employer]IP[employer] MECH[employer]IC [id number]/CPS #: [id number]
[2017-03-26] MEDS: Insulin LISPRO* 1 UNITS UNIT SUBCUT SCH (22:18)
[2017-03-26] MEDS: OLOPATADINE 0.1% BOTH EYES SCH (22:19)
[2017-03-26] MEDS: QUEtiapine XR TAB* 50 MG PO SCH (22:20)
--- NOTE | 2017-03-26 22:36 | HP ---
HISTORY AND PHYSICAL: DATE OF ADMISSION: 03/26/17 PRIMARY CARE PROVIDER: Stanislav Damian MD ATTENDING PHYSICIAN WHILE IN THE HOSPITAL: Pedro Glynn MD* (report being dictated by Mar Reynolds NP) CHIEF COMPLAINT: 1. Syncope. 2. Right ear discharge. 3. Cough. HISTORY OF PRESENT ILLNESS: Mr. Lagunas is a 61-year-old male patient. He says that he thinks 2 to 3 days ago, he remembers having an episode. He does not remember when it happened. When he was standing up, he walks to his kitchen table and he fainted. He says he recalls not having any chest pain. He did not have any shortness of breath prior to or after the event. It was a single episode. He says he was not coughing before the event. He says he just felt lightheaded before it happened. He also admits that the reason why he came in today is because he has a significant amount of pain in the left knee and right shoulder after this event and he also was noted to have some ear discharge, he described as a yellowish-type jelly substance coming out of his right ear and he has been having right ear pain. He has been having a cough and has been feeling more short of breath. He denies any chest pain. He denied having any orthopnea. He says that the knee hurts when he moves it on the left side. He denies any pain in the hip and he says he has right shoulder pain particularly when he moves the right shoulder. He says that the episode of syncope happened once. He does not know how long he was down for and cannot really recall what he was doing before he fell. He just said he had gotten up from lying down all night when sleeping and it happened when he was walking in to his bathroom. Denied having any changes in his medications as well. He was concerned though because of the ear pain and actually the shortness of breath is why he came in to the ER today and ultimately, it was found that he did have a slightly elevated troponin and because of this, the hospital service was asked to evaluate for admission. PAST MEDICAL HISTORY: Significant for: 1. GERD. 2. Diabetes. 3. Coronary artery disease. 4. Neuropathy. 5. COPD. 6. Parkinson's. 7. Chronic back pain. 8. TIA. PAST SURGICAL HISTORY: He has had an appendectomy. HOME MEDICATIONS: Include: 1. Metformin 1000 mg p.o. b.i.d. 2. Benadryl 50 mg at bedtime. 3. Spiriva 1 capsule inhaled daily. 4. Seroquel 50 mg p.o. daily. 5. Pravachol 10 mg daily. 6. Patanol 1 drop ophthalmic b.i.d. 7. Lisinopril 10 mg daily. 8. Lantus 25 units at bedtime. 9. Hydrochlorothiazide 25 mg daily. 10. [place] 1 to 2 tablets every 6 hours as needed. 11. Neurontin 300 mg p.o. b.i.d. 12. Neurontin 600 mg at bedtime. 13. Famotidine 40 mg p.o. b.i.d. 14. Cymbalta 30 mg daily. 15. Flexeril 10 mg p.o. t.i.d. 16. Zyrtec 10 mg daily. 17. Carbidopa/levodopa 1 tablet p.o. t.i.d. ALLERGIES TO MEDICATIONS: Include IBUPROFEN and ASPIRIN. FAMILY HISTORY: Both his parents had heart attack. SOCIAL HISTORY: He is a pack a day smoker for about 4 years. He does not drink alcohol. He does smoke marijuana routinely. Does not wish to appoint a surrogate decision maker at this point. REVIEW OF SYSTEMS: There is no documented fever. He denied any significant weight change. There was no double vision. He denies having any ear discharge. There was no rhinorrhea. There is no sore throat. No thyroid enlargement. Denies having any chest pain. He does admit to having cough. He does admit to having ear discharge rather. He denies having any abdominal pain. No nausea. No vomiting. There is no dysuria. He denied any frequency. There was a loss of consciousness. No pruritus. No skin ulcerations. Review of 14 systems completed, all others negative. PHYSICAL EXAMINATION GENERAL: At this time, Mr. Lagunas is a 61-year-old male patient. He is chronic ill appearing. He is morbidly obese. He is sitting in the ER stretcher. He does not appear to be in any acute distress. VITAL SIGNS: Reveals blood pressure 135/59, pulse 73, respirations 18, O2 sat 97%, and temperature 97.8. HEENT: Head is atraumatic and normocephalic. Eyes: EOMs are intact. Sclerae anicteric and not pale. NECK: Supple. Throat: Oral mucosa appears to be dry. No oropharyngeal erythema. LUNGS: He had wheezing noted bilaterally throughout. He had equal diaphragmatic expansion. HEART: Sounds S1, S2. Regular rate and rhythm. No murmurs, rubs, or gallops. ABDOMEN: Soft, flat, and nontender. Bowel sounds present. EXTREMITIES: He had +2 pitting edema bilaterally. He had 5/5 strength. NEUROLOGIC: He is awake, he is alert, and he is oriented x3. His tongue is midline. His laboratory secretary are equal. He had no gross focal deficits. On the right ear, he had erythema of the canal and erythema of the right drum. There was no discharge noted on my exam today. DIAGNOSTIC STUDIES/LAB DATA: Today revealed a WBC of 8.0, RBC of 4.91, hemoglobin of 15.3, hematocrit of 45, and platelet count of 224. He had a sodium of 136, potassium of 4.2, chloride of 98, bicarb of 30, a BUN of 18, a creatinine of 0.79, glucose of 163, lactic 1.6, calcium 9.4, and magnesium 1.5. Total bili 0.3, AST 11, ALT 4, and alk phos 60. Troponin 0.05. Albumin was 3.9. He had a urine, which shows negative toxicology and positive for opiates and cannabis. He did have a brain CT obtained today as well, which revealed no acute intracranial pathology. He did have an EKG obtained today, which showed a normal sinus rhythm, rate of 80 with a PAC. He did have what appeared to be left anterior fascicular block, which was similar to his previous EKGs. He had a knee x-ray, which showed no traumatic injury. He had osteoarthritis. Shoulder x-ray is pending and a chest x-ray is pending. Old medical records were reviewed. ASSESSMENT AND PLAN: Mr. Lagunas is a 61-year-old male patient with multiple medical problems coming in to the ER today with complaints of having a syncopal episode earlier this week, also complaining of ear discharge, cough, and shortness of breath. He will be admitted under observation status for: 1. Syncope: Etiology is unclear, happened 3 days ago. I do know that his troponin is mildly elevated, but he is not having any active cardiac symptoms. I think at this point we need to get an echo, serial troponin, serial EKG, place him on telemetry, and check orthostatic blood pressures and we will continue to follow him. 2. Indeterminate troponin: Again, etiology is unclear. It could be related to , he is having a chronic obstructive pulmonary disease exacerbation, it could be some demand ischemia, it could have been from the syncope. The plan is to trend these and get an echo. If there are any obvious changes on the echo or the troponins go up, obviously then at that point, we will get a Cardiology consult. 3. Chronic obstructive pulmonary disease with exacerbation: At this point, I will go ahead and put him on steroids. I am going to put him on antibiotics with Rocephin and azithromycin, nebulizers around the clock, pulmonary toileting , and Dulera. 4. Otitis media: He appears to have a mild infection of that right ear. I am putting him on Rocephin, which should cover this. He should be on Rocephin and azithromycin and we will follow. 5. Gastroesophageal reflux disease: Continue his famotidine. 6. Diabetes: He will be on lispro sliding scale and Lantus. 7. Coronary artery disease: He is allergic to ASPIRIN at this point. He is on a stain. We will continue his medications and we will follow. 8. Neuropathy: Continue gabapentin. 9. Parkinson's: Continue his Sinemet. 10. Chronic back pain: I did order p.r.n. Eastman. 11. Transient ischemic attack: Continue with secondary prevention. 12. DVT prophylaxis: He is high risk. He will be placed on heparin subcu. 13. Code status: Full code. 14. Fluids, electrolytes, and nutrition: He can have a consistent carbohydrate diet. TIME SPENT: Time spent on the admission was 70 minutes; greater than half the time was spent [id number] with the patient obtaining my history and physical, the other half time is spent going over the plan of care with the patient and implementing plan of care. I discussed the plan of care with my attending, Dr. Glynn. He is in agreement. MAR REYNOLDS NP ADDENDUM TO HISTORY AND PHYSICAL: It was brought to our attention by the patient's visiting nurse that on Wednesday this past week, the patient had had friends over and when the nurse went over to do his assessment, it was noted that there was drinking involved and she was concerned for her own safety and had left the situation. The patient did not reveal this information to me, but it was brought to our attention. This may have certainly contributed to his syncope as he was intoxicated. However, again it was not brought to our attention by the patient. MAR REYNOLDS NP CC: Dr. Damian* [id number]/CPS #: [id number]/CPS #: [id number] MTDD
[2017-03-27] MEDS: HYDROcodone/ACETAMIN 5-325 MG* 1 TAB PO PRN ×3 (00:18→20:00)
[2017-03-27] MEDS: Albuterol/Ipratropium NEB.SOL* Albuterol 2.5 MG/Ipratropium 0.5 MG 3 ML INH SCH ×3 (01:45→07:24)
[2017-03-27 05:30] LABS: Hematocrit 44 % (42-52); Hemoglobin 14.5 g/dl (14.0-18.0); Mean Corpuscular HGB Conc 33 g/dl (31-36); Mean Corpuscular Hemoglobin 31 pg (27-31); Mean Corpuscular Volume 93 fL (80-94); Mean Platelet Volume 8 um3 (7.4-10.4); Red Blood Count 4.75 10^6/ul (4.0-5.4); Red Cell Distribution Width 15 % (10.5-15); White Blood Count 9.4 10^3/ul (3.5-10.8)
[2017-03-27 05:39] LABS: BUN/Creatinine Ratio 24.1 (8-20); Calcium 9.2 mg/dL (8.6-10.3); EGFR African American 128.7 (>60); Potassium 4.6 mmol/L (3.5-5.0)
[2017-03-27] MEDS: Heparin VIAL(*) 5000 UNITS/ML VIAL (FIVE THOUSAND) SUBCUT SCH ×3 (05:56→22:15)
[2017-03-27] MEDS: Mometasone/Formoter 200/5 MDI INH SCH ×2 (07:24→20:31)
[2017-03-27] MEDS: Insulin LISPRO* 1 UNITS UNIT SUBCUT SCH ×4 (08:39→21:48)
[2017-03-27] MEDS: OLOPATADINE 0.1% BOTH EYES SCH ×2 (08:43→22:26)
[2017-03-27] MEDS: DULoxetine DR CAP* 30 MG CAP.DR PO SCH (08:45)
[2017-03-27] MEDS: predniSONE TAB* 20 MG PO SCH (08:45)
[2017-03-27] MEDS: Gabapentin CAP(*) 300 MG PO SCH ×3 (08:45→22:14)
[2017-03-27] MEDS: Lisinopril TAB* 10 MG PO SCH (08:45)
[2017-03-27] MEDS: Carbidopa/Levodop 10/100 MG TAB(*) PO SCH ×3 (08:45→22:17)
[2017-03-27] MEDS: Famotidine TAB* 20 MG PO SCH ×2 (08:45→22:14)
[2017-03-27] MEDS: Cetirizine* 10 MG TAB PO SCH (08:45)
[2017-03-27] MEDS: CMC: Pravastatin (NF) 20 MG TAB PO SCH (08:46)
[2017-03-27] MEDS ORDERED: Pneumococcal Vac Polyvalent* 0.5 ML VIAL IM ONE (09:00)
--- NOTE | 2017-03-27 11:01 | PN ---
Subjective Date of Service: 03/27/17 Interval History: Patient seen and examined at bedside. He reports feeling dizzy whenever he stands up and also reports more drainage from his right ear earlier this morning. His breathing feels a little better. Denies chest pain. Reports having sweats and then chills overnight and this morning. Family History: Unchanged from Admission Social History: Unchanged from Admission Past Medical History: Unchanged from Admission Objective Active Medications: Acetaminophen (Tylenol Tab*) 650 mg PO Q4H PRN PRN Reason: FEVER/PAIN Hydrocodone Bitart/Acetaminophen ([place] 5-325 Tab*) 2 tab PO Q6H PRN PRN Reason: PAIN Last Admin: 03/27/17 00:18 Dose: 2 tab Albuterol (Ventolin 2.5 Mg/3 Ml Neb.Miriam*) 2.5 mg INH Q2H PRN PRN Reason: SOB/WHEEZING Carbidopa/Levodopa (Sinemet 10/100 Tab(*)) 1 tab PO TID [facility] Last Admin: 03/27/17 08:45 Dose: 1 tab Cetirizine HCl (Zyrtec*) 10 mg PO DAILY [facility]IREE PRN Reason: Protocol Last Admin: 03/27/17 08:45 Dose: 10 mg Cyclobenzaprine HCl (Flexeril Tab*) 10 mg PO TID PRN PRN Reason: SPASMS Dextrose (D50w Syringe 50 Ml*) 12.5 gm IV PUSH .FOR FS < 60 - SS PRN PRN Reason: FS < 60 Diphenhydramine HCl (Benadryl Po*) 50 mg PO BEDTIME PRN PRN Reason: INSOMNIA Duloxetine HCl (Cymbalta Cap*) 30 mg PO DAILY [facility] Last Admin: 03/27/17 08:45 Dose: 30 mg Famotidine (Pepcid Tab*) 40 mg PO BID [facility]IREE Last Admin: 03/27/17 08:45 Dose: 40 mg Gabapentin (Neurontin Cap(*)) 300 mg PO 0900,1800 [facility] Last Admin: 03/27/17 08:45 Dose: 300 mg Gabapentin (Neurontin Cap(*)) 600 mg PO BEDTIME [facility] Last Admin: 03/26/17 22:00 Dose: 600 mg Heparin Sodium (Porcine) (Heparin Vial(*)) 5,000 units SUBCUT Q8HR [facility] Last Admin: 03/27/17 05:56 Dose: 5,000 units Azithromycin 500 mg/ Sodium (Chloride) 250 mls @ 250 mls/hr IVPB 1330 [facility] Last Admin: 03/26/17 15:19 Dose: 250 mls/hr Ceftriaxone Sodium 1,000 mg/ (Sodium Chloride) 50 mls @ 200 mls/hr IVPB 1430 [facility] Last Admin: 03/26/17 14:18 Dose: 200 mls/hr Insulin Glargine (Lantus(*)) 25 units SUBCUT BEDTIME [facility] Last Admin: 03/26/17 21:59 Dose: 25 unit Insulin Human Lispro (Humalog*) 0 units SUBCUT ACHS [facility] PRN Reason: Protocol Last Admin: 03/27/17 08:39 Dose: 3 unit Lisinopril (Prinivil Tab*) 10 mg PO DAILY [facility] Last Admin: 03/27/17 08:45 Dose: 10 mg Mometasone Furoate/Formoterol Fumar (Dulera 200/5 Mdi*) 2 puff INH BID [facility] Last Admin: 03/27/17 07:24 Dose: 2 puff Olopatadine HCl (Patanol 0.1% Ophth (Nf)) 1 drop BOTH EYES BID [facility] PRN Reason: Protocol Last Admin: 03/27/17 08:43 Dose: 1 drop Ondansetron HCl (Zofran Inj*) 4 mg IV Q6H PRN PRN Reason: NAUSEA Pravastatin Sodium (Pravachol (Nf)) 10 mg PO DAILY [facility] Last Admin: 03/27/17 08:46 Dose: 10 mg Prednisone (Deltasone Tab*) 60 mg PO DAILY [facility] Last Admin: 03/27/17 08:45 Dose: 60 mg Quetiapine Fumarate (Seroquel Xr Tab*) 50 mg PO BEDTIME [facility] Last Admin: 03/26/17 22:20 Dose: 50 mg Vital Signs 03/26/17 03/26/17 03/26/17 13:00 13:10 13:24 Temperature 98.9 F 97.8 F Pulse Rate 75 87 89 Respiratory 20 20 Rate Blood Pressure 125/72 125/72 145/87 (mmHg) O2 Sat by Pulse 96 92 Oximetry 03/26/17 03/26/17 03/26/17 14:05 15:54 16:00 Temperature 98.2 F Pulse Rate 89 102 108 Respiratory 14 22 Rate Blood Pressure 122/70 124/68 (mmHg) O2 Sat by Pulse 93 90 90 Oximetry 03/26/17 03/26/17 03/26/17 16:16 17:29 17:35 Temperature Pulse Rate 97 Respiratory 16 18 17 Rate Blood Pressure (mmHg) O2 Sat by Pulse 92 Oximetry 03/26/17 03/26/17 03/26/17 17:36 17:37 18:16 Temperature Pulse Rate 95 108 Respiratory 17 18 Rate Blood Pressure 124/68 (mmHg) O2 Sat by Pulse 93 93 Oximetry 03/26/17 03/26/17 03/26/17 20:00 20:04 22:00 Temperature 97.1 F Pulse Rate 99 98 Respiratory 16 16 20 Rate Blood Pressure 134/93 (mmHg) O2 Sat by Pulse 99 95 Oximetry 03/26/17 03/27/17 03/27/17 22:53 00:00 00:18 Temperature 97.4 F Pulse Rate 100 Respiratory 16 18 Rate Blood Pressure 106/57 (mmHg) O2 Sat by Pulse 94 96 Oximetry 03/27/17 03/27/17 03/27/17 01:47 02:18 04:27 Temperature 97.3 F Pulse Rate 88 95 Respiratory 18 18 16 Rate Blood Pressure 115/54 (mmHg) O2 Sat by Pulse 99 98 Oximetry 03/27/17 03/27/17 03/27/17 07:24 07:28 08:45 Temperature 97.3 F Pulse Rate 82 81 Respiratory 16 16 20 Rate Blood Pressure 121/58 (mmHg) O2 Sat by Pulse 96 98 Oximetry Oxygen Devices in Use Now: None Appearance: Middle aged male, lying in bed, NAD Eyes: PERRLA Ears/Nose/Mouth/Throat: Mucous Membranes Moist Neck: NL Appearance and Movements; NL JVP Respiratory: Symmetrical Chest Expansion and Respiratory Effort, - - expiratory wheezing Cardiovascular: NL Sounds; No Murmurs; No JVD, RRR Abdominal: NL Sounds; No Tenderness; No Distention, - - obese Extremities: - - 1-2+ BLE edema Skin: - - left foot petechial rash Neurological: Alert and Oriented x 3, NL Muscle Strength and Tone Lines/Tubes/Other Access: Clean, Dry and Intact Peripheral IV Nutrition: Taking PO's Result Diagrams: 03/27/17 05:12 03/27/17 05:17 Additional Lab and Data: Lab Results 03/26/17 03/26/17 03/26/17 Range/Units 10:27 10:27 10:27 WBC 8.0 (3.5-10.8) 10^3/ul RBC 4.91 (4.0-5.4) 10^6/ul Hgb 15.3 (14.0-18.0) g/dl Hct 45 (42-52) % MCV 92 (80-94) fL MCH 31 (27-31) pg MCHC 34 (31-36) g/dl RDW 15 (10.5-15) % Plt Count 224 (150-450) 10^3/ul MPV 8 (7.4-10.4) um3 Neut % (Auto) 61.4 (38-83) % Lymph % (Auto) 26.2 (25-47) % [place] % (Auto) 7.5 (1-9) % Eos % (Auto) 3.6 (0-6) % Baso % (Auto) 1.3 (0-2) % Absolute Neuts (auto) 4.9 (1.5-7.7) 10^3/ul Absolute Lymphs (auto) 2.1 (1.0-4.8) 10^3/ul Absolute Monos (auto) 0.6 (0-0.8) 10^3/ul Absolute Eos (auto) 0.3 (0-0.6) 10^3/ul Absolute Basos (auto) 0.1 (0-0.2) 10^3/ul Absolute Nucleated RBC 0 10^3/ul Nucleated RBC % 0 Sodium 136 (133-145) mmol/L Potassium 4.2 (3.5-5.0) mmol/L Chloride 98 L (101-111) mmol/L Carbon Dioxide 30 (22-32) mmol/L Anion Gap 8 (2-11) mmol/L BUN 18 (6-24) mg/dL Creatinine 0.79 (0.67-1.17) mg/dL Est GFR ( Amer) 128.7 (>60) Est GFR (Non-Af Amer) 100.0 (>60) BUN/Creatinine Ratio 22.8 H (8-20) Glucose 163 H (70-100) mg/dL Lactic Acid 1.6 (0.5-2.0) mmol/L Calcium 9.4 (8.6-10.3) mg/dL Magnesium 1.5 L (1.9-2.7) mg/dL Total Bilirubin 0.30 (0.2-1.0) mg/dL AST 11 L (13-39) U/L ALT 4 L (7-52) U/L Alkaline Phosphatase 60 (34-104) U/L Troponin I 0.05 H* (<0.04) ng/mL Total Protein 6.8 (6.4-8.9) g/dL Albumin 3.9 (3.2-5.2) g/dL Globulin 2.9 (2-4) g/dL Albumin/Globulin Ratio 1.3 (1-3) TSH 1.87 (0.34-5.60) mcIU/mL Urine Color Urine Appearance Urine pH (5-9) Ur Specific [place] (1.010-1.030) Urine Protein (Negative) Urine Ketones (Negative) Urine Blood (Negative) Urine Nitrate (Negative) Urine Bilirubin (Negative) Urine Urobilinogen (Negative) Ur Leukocyte Esterase (Negative) Urine Glucose (Negative) Urine Opiates Screen (None Detect) Ur Barbiturates Screen (None Detect) Ur Phencyclidine Scrn (None Detect) Ur Amphetamines Screen (None Detect) U Benzodiazepines Scrn (None Detect) Urine Cocaine Screen (None Detect) U Cannabinoids Screen (None Detect) Serum Alcohol < 10 (<10) mg/dL 03/26/17 03/26/17 Range/Units 12:10 12:10 WBC (3.5-10.8) 10^3/ul RBC (4.0-5.4) 10^6/ul Hgb (14.0-18.0) g/dl Hct (42-52) % MCV (80-94) fL MCH (27-31) pg MCHC (31-36) g/dl RDW (10.5-15) % Plt Count (150-450) 10^3/ul MPV (7.4-10.4) um3 Neut % (Auto) (38-83) % Lymph % (Auto) (25-47) % [place] % (Auto) (1-9) % Eos % (Auto) (0-6) % Baso % (Auto) (0-2) % Absolute Neuts (auto) (1.5-7.7) 10^3/ul Absolute Lymphs (auto) (1.0-4.8) 10^3/ul Absolute Monos (auto) (0-0.8) 10^3/ul Absolute Eos (auto) (0-0.6) 10^3/ul Absolute Basos (auto) (0-0.2) 10^3/ul Absolute Nucleated RBC 10^3/ul Nucleated RBC % Sodium (133-145) mmol/L Potassium (3.5-5.0) mmol/L Chloride (101-111) mmol/L Carbon Dioxide (22-32) mmol/L Anion Gap (2-11) mmol/L BUN (6-24) mg/dL Creatinine (0.67-1.17) mg/dL Est GFR ( Amer) (>60) Est GFR (Non-Af Amer) (>60) BUN/Creatinine Ratio (8-20) Glucose (70-100) mg/dL Lactic Acid (0.5-2.0) mmol/L Calcium (8.6-10.3) mg/dL Magnesium (1.9-2.7) mg/dL Total Bilirubin (0.2-1.0) mg/dL AST (13-39) U/L ALT (7-52) U/L Alkaline Phosphatase (34-104) U/L Troponin I (<0.04) ng/mL Total Protein (6.4-8.9) g/dL Albumin (3.2-5.2) g/dL Globulin (2-4) g/dL Albumin/Globulin Ratio (1-3) TSH (0.34-5.60) mcIU/mL Urine Color Yellow Urine Appearance Clear Urine pH 6.0 (5-9) Ur Specific [place] 1.012 (1.010-1.030) Urine Protein Negative (Negative) Urine Ketones Negative (Negative) Urine Blood Negative (Negative) Urine Nitrate Negative (Negative) Urine Bilirubin Negative (Negative) Urine Urobilinogen Negative (Negative) Ur Leukocyte Esterase Negative (Negative) Urine Glucose Negative (Negative) Urine Opiates Screen Presumptive positive H (None Detect) Ur Barbiturates Screen None detected (None Detect) Ur Phencyclidine Scrn None detected (None Detect) Ur Amphetamines Screen None detected (None Detect) U Benzodiazepines Scrn None detected (None Detect) Urine Cocaine Screen None detected (None Detect) U Cannabinoids Screen Presumptive positive H (None Detect) Serum Alcohol (<10) mg/dL Microbiology and Other Data: Microbiology 03/26/17 17:30 Gram Stain - Final Sputum Expectorated Assess/Plan/Problems-Billing Assessment: Mr. Lagunas is a 61 yo male with a PMH of CAD, DM, neuropathy, COPD, Parkinson' s Disease, chronic back pain, hx TIA, and GERD who presented to the ED on 03/26 with concern for syncope, right ear pain, and cough secondary to COPD exacerbation and likely viral illness with otitis media. - Patient Problems (1) COPD (chronic obstructive pulmonary disease) Code(s): J44.9 - CHRONIC OBSTRUCTIVE PULMONARY DISEASE, UNSPECIFIED Comment: With mild exacerbation Continue prednisone (decrease to 40 mg tomorrow), Dulera, prn nebulizers. Continue azithromycin (decrease to 250 mg to complete 5 day course) Encourage IS No supplemental O2 needs. (2) Syncope Code(s): R55 - SYNCOPE AND COLLAPSE Comment: Occurred 3 days prior to admission, unclear etiology. May consider right otitis media. Mostly SR on telemetry with one documented missed beat. Positive orthostasis - give one liter of fluid, recheck ortho VS in AM Echocardiogram does not show any valvular or wall motion abnormalities, no hypokinesis; EF >65%. VNS nurse also reports patient was consuming ETOH on the day of syncopal episode. (3) Elevated troponin Code(s): R74.8 - ABNORMAL LEVELS OF OTHER SERUM ENZYMES Comment: Peak 0.05, indeterminate troponin Suspect demand ischemia EKG similar to previous, patient with LAFB (4) Otitis media Code(s): H66.90 - OTITIS MEDIA, UNSPECIFIED, UNSPECIFIED EAR Comment: Patient started on ceftriaxone. Switch to Augmentin. (5) Parkinson disease Code(s): G20 - PARKINSON'S DISEASE Comment: Continue home carbidopa/levadopa. (6) Diabetes mellitus Code(s): E11.9 - TYPE 2 DIABETES MELLITUS WITHOUT COMPLICATIONS Comment: Controlled. Continue home Lantus. FSBG with Lispro SSI Hold home metformin. (7) Peripheral neuropathy Code(s): G62.9 - POLYNEUROPATHY, UNSPECIFIED Comment: Continue gabapentin. (8) Chronic back pain Code(s): M54.9 - DORSALGIA, UNSPECIFIED; G89.29 - OTHER CHRONIC PAIN Comment: Continue home duloxetine, cyclobenzaprine, prn hydrocodone-APAP (9) CAD (coronary artery disease) Code(s): I25.10 - ATHSCL HEART DISEASE OF [place] CORONARY ARTERY W/O ANG PCTRS Comment: Aspirin allergy Continue home statin. (10) GERD (gastroesophageal reflux disease) Code(s): K21.9 - GASTRO-ESOPHAGEAL REFLUX DISEASE WITHOUT ESOPHAGITIS Comment : Continue home famotidine. (11) Hx of transient ischemic attack (TIA) (12) DVT prophylaxis Comment: SQ heparin Status and Disposition: OBV to inpatient. Anticipate potential d/c to home tomorrow.
[2017-03-27] MEDS ORDERED: NS 0.9% 1000 ML* 1,000 ML IV SCH (11:15)
[2017-03-27] MEDS: Acetaminophen TAB* 325 MG PO PRN (11:19)
[2017-03-27] MEDS: Azithromycin IV(*) 500 MG in NS 0.9% 250 ML* 250 ML IVPB SCH (13:53)
[2017-03-27] MEDS: cefTRIAXone VIAL(*) 1,000 MG in NS 0.9% 50 ML* 50 ML IVPB SCH (15:02)
[2017-03-27] MEDS: Cyclobenzaprine TAB* 10 MG PO PRN (19:59)
[2017-03-27] MEDS: Insulin GLARGINE(*) 1 UNITS UNIT SUBCUT SCH (21:47)
[2017-03-27] MEDS: Amoxicillin/Clavulanate TAB* 500 MG PO SCH (22:13)
[2017-03-27] MEDS: QUEtiapine XR TAB* 50 MG PO SCH (22:14)
[2017-03-28] MEDS: Heparin VIAL(*) 5000 UNITS/ML VIAL (FIVE THOUSAND) SUBCUT SCH (06:16)
[2017-03-28] MEDS: Mometasone/Formoter 200/5 MDI INH SCH (08:06)
[2017-03-28] MEDS: Insulin LISPRO* 1 UNITS UNIT SUBCUT SCH ×2 (08:43→12:32)
[2017-03-28] MEDS: HYDROcodone/ACETAMIN 5-325 MG* 1 TAB PO PRN (08:45)
[2017-03-28] MEDS: Carbidopa/Levodop 10/100 MG TAB(*) PO SCH ×2 (08:46→13:38)
[2017-03-28] MEDS: Cyclobenzaprine TAB* 10 MG PO PRN (08:46)
[2017-03-28] MEDS: Lisinopril TAB* 10 MG PO SCH (08:47)
[2017-03-28] MEDS: CMC: Pravastatin (NF) 20 MG TAB PO SCH (08:48)
[2017-03-28] MEDS: Gabapentin CAP(*) 300 MG PO SCH (08:50)
[2017-03-28] MEDS: Cetirizine* 10 MG TAB PO SCH (08:51)
[2017-03-28] MEDS: Amoxicillin/Clavulanate TAB* 500 MG PO SCH (08:51)
[2017-03-28] MEDS: DULoxetine DR CAP* 30 MG CAP.DR PO SCH (08:52)
[2017-03-28] MEDS: Famotidine TAB* 20 MG PO SCH (08:52)
[2017-03-28] MEDS: OLOPATADINE 0.1% BOTH EYES SCH (08:53)
[2017-03-28] MEDS ORDERED: Azithromycin TAB* 250 MG PO SCH (09:00)
[2017-03-28] MEDS ORDERED: predniSONE TAB* 20 MG PO SCH (09:00)
[2017-03-28] MEDS: Acetaminophen TAB* 325 MG PO PRN (10:26)
[2017-03-28 11:50] VITALS: BP 133/69
--- NOTE | 2017-03-29 03:21 | DS ---
DISCHARGE SUMMARY: DATE OF ADMISSION: 03/26/17 DATE OF DISCHARGE: 03/28/17 PRIMARY CARE PROVIDER: Dr. Damian. DISCHARGE DIAGNOSES: 1. Syncope most likely situational due to cough. 2. Chronic obstructive pulmonary disease exacerbation. 3. Left ear otitis media. SECONDARY DIAGNOSES: 1. Obesity. 2. Gastroesophageal reflux disease. 3. Diabetes. 4. Coronary artery disease. 5. Neuropathy. 6. Chronic obstructive pulmonary disease, not oxygen dependent. 7. Parkinson's. 8. Chronic back pain. 9. History of transient ischemic attack. MEDICATIONS AT DISCHARGE: Include: 1. Augmentin 500 mg b.i.d. for 7 days total. 2. Azithromycin 250 mg daily for 3 days total. 3. Carbidopa levodopa 1 tablet 3 times a day, that is . 4. Zyrtec 10 mg daily. 5. Flexeril 10 mg t.i.d. p.r.n. 6. Cymbalta 30 mg daily. 7. Pepcid 40 mg b.i.d. 8. Neurontin 600 mg at bedtime and 300 mg b.i.d. 9. [place] on a p.r.n. basis. 10. Hydrochlorothiazide 25 mg daily. 11. Insulin Lantus 25 units daily. 12. Lisinopril 20 mg daily. 13. Patanol eye drops 0.1% one drop b.i.d. to both eyes. 14. Pravachol 10 mg daily. 15. Seroquel 50 mg at bedtime. 16. Spiriva 1 inhalation daily. 17. Benadryl 50 mg at bedtime p.r.n. 18. Metformin 1000 mg b.i.d. 19. Prednisone 40 mg daily for 3 days total, then stop. LABORATORY DATA: Studies performed during the hospital stay included: On 03/27/17, sodium of 135, potassium of 4.6, chloride 101, carbon dioxide 28, BUN 19, creatinine of 0.79. The patient's hemoglobin A1c was noted to 9. White blood cell count of 9.4, hemoglobin of 13.5, hematocrit of 44, and platelets of 233. Brain CT obtained on 03/26/17. Impression: "No acute intracranial pathology." Knee x-ray obtained on 03/26/17. Impression: "No traumatic injury evident. Kellgren and Clifton grade 2 osteoarthritis." Shoulder x-ray on 03/26/17. Impression: "Osteoarthritis". No acute osseous injury." Portable chest x-ray. Impression: "Cardiomegaly with pulmonary interstitial edema." Transthoracic echocardiogram showed EF of 65% and hyperdynamic left ventricle. Moderate concentric LVH. Suggestion of diastolic dysfunction. Functionally benign heart valves. HOSPITALIZATION COURSE: Mr. Lagunas is a 61-year-old male with history of morbid obesity, diabetes, hypertension, COPD who presented to the hospital complaining of syncopal episode after he had coughed a lot. The patient's initial troponin was 0.05, but another troponin obtained just 4 hours later and subsequent 3 troponins that followed were 0.01. I believe that the initial troponin was a lab error. Nevertheless, the patient was placed on overnight observation with neon light installer bed. Telemetry monitoring showed sinus arrhythmia with frequent PACs and one bout of asymptomatic SVT for a total of 7 or 8 beats. The patient also complained of right ear discharge. He has a history of perforated tympanic membrane as a child. He also had been coughing. He was diagnosed with otitis media as well as COPD exacerbation. He was placed on full admission and continued to be treated with intravenous fluids as well as antibiotics. He did very well. By the time of discharge he is ambulating without any symptoms on room air. He is going to be discharged with azithromycin and Augmentin as mentioned above as well as continuation of prednisone for the next few days as mentioned above. He is recommended to follow up with his primary care provider in approximately 4 to 7 days. PHYSICAL EXAMINATION AT THE TIME OF DISCHARGE: Blood pressure of 133/69, heart rate of 78 and regular, respiratory rate of 18, oxygen saturation 93% on room air, and temperature 98.2. General: The patient is a pleasant 61-year-old male with a BMI of 51 who is in no acute distress. The patient is alert, awake , and oriented x3. HEENT: Head is atraumatic and normocephalic. Eyes: Pupils are equal and reactive to light and accommodation. Oropharynx clear. Mucosa moist. Neck: Supple, no JVD, no bruits bilaterally. Cardiovascular: Regular rate and rhythm. No murmur. Respiratory: Clear to auscultation bilaterally with faint crackles at bilateral bases. Abdomen: Very protuberant , soft, and nontender. Bowel sounds present in all 4 quadrants. Extremities: There is trace bilateral ankle edema. Pulses are +2 bilaterally. No clubbing or cyanosis. Neuro Evaluation: Speech clear. Cranial nerves II through XII are grossly intact. Motor strength is 5/5 bilaterally. Please note this is a short summary of the patient's hospital stay. Please refer to further medical records for details. TIME SPENT: Approximately 45 minutes were spent on the patient's discharge. CC: Dr. Damian* [id number]/CPS #: [id number] CHARLIE
== END 2017-03-28 14:30 | disposition home or self-care (01) | DRG 191 ==
LOC: ED 09:54 → MEDTELE 12:55 → OBSVTOIN 03-27 11:00
PROVIDERS: ADMIT Internal Medicine; ATTEND Internal Medicine
PROC: 3E0234Z Introduction of Serum, Toxoid and Vaccine into Muscle, Percutaneous Approach (ICD-10-PCS; principal; 2017-03-27)
DX: J44.1 Chronic obstructive pulmonary disease with (acute) exacerbation (principal); I47.1 Supraventricular tachycardia; E11.40 Type 2 diabetes mellitus with diabetic neuropathy, unspecified; G31.89 Other specified degenerative diseases of nervous system; I11.0 Hypertensive heart disease with heart failure; I50.9 Heart failure, unspecified; Z68.43 Body mass index [BMI] 50.0-59.9, adult; H66.91 Otitis media, unspecified, right ear; R55 Syncope and collapse; E78.00 Pure hypercholesterolemia, unspecified; K21.9 Gastro-esophageal reflux disease without esophagitis; G43.909 Migraine, unspecified, not intractable, without status migrainosus; F41.9 Anxiety disorder, unspecified; F31.9 Bipolar disorder, unspecified; G20 Parkinson's disease; F12.90 Cannabis use, unspecified, uncomplicated; I25.10 Atherosclerotic heart disease of native coronary artery without angina pectoris; G89.29 Other chronic pain; M54.9 Dorsalgia, unspecified; M19.011 Primary osteoarthritis, right shoulder; M17.12 Unilateral primary osteoarthritis, left knee; E66.01 Morbid (severe) obesity due to excess calories; I49.1 Atrial premature depolarization; Z87.442 Personal history of urinary calculi; Z91.5 Personal history of self-harm; Z83.3 Family history of diabetes mellitus; Z82.49 Family history of ischemic heart disease and other diseases of the circulatory system; Z79.4 Long term (current) use of insulin; Z56.0 Unemployment, unspecified; Z86.73 Personal history of transient ischemic attack (TIA), and cerebral infarction without residual deficits; Z88.6 Allergy status to analgesic agent; Z91.048 Other nonmedicinal substance allergy status; R40.2412 Glasgow coma scale score 13-15, at arrival to emergency department; F17.210 Nicotine dependence, cigarettes, uncomplicated; R74.8 Abnormal levels of other serum enzymes; Z23 Encounter for immunization
CPT/HCPCS: 36415; 70450; 71010; 80048; 80053; 80307; 80320; 81003; 83036; 83605; 83735; 84443; 84484; 85025; 87070; 87205; 90732; 93005; 93306; 94640; 94760; A9270-GY; C8929; G0378; G0480; J0456; J0696; J1644; J7512

== ENCOUNTER 2017-04-03 21:21 | Emergency (ER) | payer MEDICARE, MEDICAID ==
[2017-04-03] MEDS ORDERED: NS 0.9% 1000 ML* 1,000 ML IV ONE ×2 (22:17→23:52)
[2017-04-03 22:29] LABS: Urine Bilirubin Negative (Negative); Urine Glucose 2+(150 mg/dL) (Negative); Urine Nitrite Negative (Negative)
[2017-04-03 22:42] LABS: ALT 21 U/L (7-52); Alkaline Phosphatase 60 U/L (34-104); Blood Urea Nitrogen 29 mg/dL (6-24); CO2 Carbon Dioxide 21 mmol/L (22-32); Calcium 9.6 mg/dL (8.6-10.3); Chloride 92 mmol/L (101-111); EGFR African American 82.6 (>60); EGFR Non-African American 64.2 (>60); Globulin 3.3 g/dL (2-4); Glucose 239 mg/dL (70-100); Lipase 10 U/L (11.0-82.0); Sodium 126 mmol/L (133-145); Total Protein 7.3 g/dL (6.4-8.9)
[2017-04-03 22:43] LABS: Troponin I 0.01 ng/mL (<0.04)
--- NOTE | 2017-04-03 22:54 | RAD ---
Indication: Cholecystitis. Real-time sonography of the right upper quadrant was performed. The liver measures 20 cm in length. It is diffusely increased in echogenicity consistent with hepatic steatosis. The liver is enlarged. No intrahepatic ductal dilatation is noted. The gallbladder demonstrates no gallstones or pericholecystic fluid. The common duct is not visualized due to body habitus. The right kidney measures 11.0 x 7.2 x 6.9 cm with no hydronephrosis. The remainder the exam is limited due to body habitus. IMPRESSION: Hepatomegaly with hepatic steatosis. No definite gallstones are noted. Limited evaluation of the liver, common duct, pancreas, aorta and inferior vena cava due to body habitus.
[2017-04-03] MEDS ORDERED: Morphine INJ* 4 MG/ML 1 ML SYRINGE IV ONE (23:43)
[2017-04-03] MEDS ORDERED: Ondansetron INJ* 2 MG/ML VIAL IV ONE (23:43)
[2017-04-03] MEDS ORDERED: Iodixanol* (CONTRAST) 320 MG/ML 100 ML SDV IV ONE (23:52)
[2017-04-04 02:03] LABS: Hematocrit 51 % (42-52); Hemoglobin 16.9 g/dl (14.0-18.0); Mean Corpuscular HGB Conc 33 g/dl (31-36); Mean Corpuscular Hemoglobin 31 pg (27-31); Mean Corpuscular Volume 92 fL (80-94); Mean Platelet Volume 8 um3 (7.4-10.4); Red Blood Count 5.51 10^6/ul (4.0-5.4); Red Cell Distribution Width 15 % (10.5-15); White Blood Count 14.8 10^3/ul (3.5-10.8)
[2017-04-04 04:22] LABS: Albumin 3.9 g/dL (3.2-5.2); Calcium 9.7 mg/dL (8.6-10.3); EGFR African American 93.7 (>60); EGFR Non-African American 72.8 (>60); Globulin 2.9 g/dL (2-4); Potassium 4.7 mmol/L (3.5-5.0); Total Bilirubin 0.6 mg/dL (0.2-1.0); Total Protein 6.8 g/dL (6.4-8.9)
[2017-04-04 04:24] LABS: Troponin I 0.02 ng/mL (<0.04)
--- NOTE | 2017-04-04 04:54 | ED ---
Derrick Torrez Aidan, scribed for Anthony Silveirauel on 04/03/17 at 2222 . Abdominal Pain/Male - HPI Summary HPI Summary: 61 y/o male presents to the ED via EMS with a complaint of acute, constant, [id number], diffuse abdominal pain that has persisted for the past 3 days. Additionally, he has acute, constant, moderate, left-sided CP that radiates down his arm. His CP began 5 hours ago with associated SOB, nausea, and 1 episode of vomiting. Hx of TIA, HTN, COPD, DM, and smoking. SHx of appendectomy, though he still has his gallbladder. Pt denies any Hx of OK. - History of Current Complaint Chief Complaint: EDChestPainROMI Stated Complaint: CHEST PAIN Time Seen by Provider: 04/03/17 21:52 Hx Obtained From: Patient, Family/Gastroenterology Technician Onset/Duration: Sudden Onset - CP, Gradual Onset - abdominal pain, Lasting Hours - CP has lasted 5 hours so far, Lasting Days - 3 days for the abdominal pain, Still Present - both abdominal pain and CP Timing: Constant, Lasting Hours - 5 hours of CP, Lasting Days - 3 days of abdominal pain Severity Initially: Moderate Severity Currently: Moderate Pain Intensity: 4 Pain Scale Used: 0-10 Numeric Location: Diffuse - diffuse abdominal pain Radiates: Yes Radiates to: Other - Pt's left-sided CP radiates down the left arm Character: Sharp Aggravating Factor(s): Other: - unknown Alleviating Factor(s): Other: - unknown Associated Signs And Symptoms: Positive: Chest Pain, Nausea, Vomiting - x1, Other - SOB - Risk Factors Cardiac Risk Factors: Hypertension, Smoking - Allergies/Home Medications Allergies/Adverse Reactions: Allergies Allergy/AdvReac Type Severity Reaction Status Date / Time Aspirin Allergy GI Upset Verified 03/26/17 10:18 ENVIRONMENTAL Allergy Rash And Uncoded 03/26/17 10:18 Itching WOOL Allergy Runny Nose Uncoded 03/26/17 10:18 PMH/Surg Hx/FS Hx/Imm Hx Endocrine/Hematology History: Reports: Hx Diabetes - Controlled w/ pills and insulin Cardiovascular History: Reports: Hx Congestive Heart Failure, Hx Hypercholesterolemia, Hx Hypertension, Other Cardiovascular Problems/Disorders - "Heart Disease" Respiratory History: Reports: Hx Chronic Obstructive Pulmonary Disease (COPD) GI History: Reports: Hx Gastroesophageal Reflux Disease, Other GI Disorders - "Hernia" History: Reports: Hx Kidney Stones, Hx Renal Disease - KIDNEY STONES BILATERALLY Musculoskeletal History: Reports: Hx Arthritis, Hx Back Problems, Hx Orthopedic Injury - Herniated discs, coccyx fracture, "degenerative spine" Sensory History: Reports: Hx Contacts or Glasses - Pt has glasses script but no glasses Denies: Hx Hearing Aid Opthamlomology History: Reports: Hx Contacts or Glasses - Pt has glasses script but no glasses Neurological History: Reports: Hx Migraine, Hx Transient Ischemic Attacks (TIA) - x5, Other Neuro Impairments/Disorders - Parkinsons, Bilateral leg neurophathy Psychiatric History: Reports: Hx Anxiety, Hx Depression, Hx Inpatient Treatment , Hx Community Mental Health Tx, Hx Bipolar Disorder, Hx Suicide Attempt - OD Denies: Hx Eating Disorder, Hx of Violent Episodes Against Others - Surgical History Surgery Procedure, Year, and Place: Appendectomy Infectious Disease History: No Infectious Disease History: Denies: Traveled Outside the [place] in Last 30 Days - Family History Known Family History: Positive: Cardiac Disease, Hypertension, Diabetes - Social History Occupation: Employed Full-time Lives: With Family Alcohol Use: None Substance Use Type: Reports: Marijuana Substance Use Comment - Amount & Last Used: 1 joint a day Hx Tobacco Use: Yes Smoking Status (MU): Heavy Every Day Tobacco Smoker Review of Systems Constitutional: Negative Eyes: Negative ENT: Negative Positive: Chest Pain. Negative: Palpitations Positive: Shortness Of Breath. Negative: Cough Positive: Abdominal Pain, Vomiting, Nausea. Negative: Diarrhea Genitourinary: Negative Musculoskeletal: Negative Skin: Negative Neurological: Negative Psychological: Normal All Other Systems Reviewed And Are Negative: Yes Physical Exam Triage Information Reviewed: Yes Vital Signs On Initial Exam: Initial Vitals Temp Pulse Resp BP Pulse Ox 97.9 F 86 24 146/100 96 04/03/17 21:24 04/03/17 21:24 04/03/17 21:24 04/03/17 21:24 04/03/17 21:24 Vital Signs Reviewed: Yes Appearance: Positive: Well-Appearing, No Pain Distress Skin: Positive: Warm, Skin Color Reflects Adequate Perfusion, Dry Head/Face: Positive: Normal Head/Face Inspection Eyes: Positive: EOMI, RIC ENT: Positive: Normal ENT inspection Neck: Positive: Supple, Nontender Respiratory/Lung Sounds: Positive: Clear to Auscultation, Breath Sounds Present Cardiovascular: Positive: Normal, RRR, Pulses are Symmetrical in both Upper and Lower Extremities Abdomen Description: Positive: Soft, Distended, Other: - diffuse abdominal tenderness Bowel Sounds: Positive: Present Musculoskeletal: Positive: Normal, Strength/ROM Intact Neurological: Positive: Normal, Sensory/Motor Intact, Alert, Oriented to Person Place, Time Psychiatric: Positive: Normal, Affect/Mood Appropriate AVPU Assessment: Alert Diagnostics - Vital Signs Vital Signs Temp Pulse Resp BP Pulse Ox 04/03/17 21:28 86 04/03/17 21:24 97.9 F 86 24 146/100 96 - Laboratory Result Diagrams: 04/04/17 01:46 04/04/17 03:45 Lab Statement: Any lab studies that have been ordered have been reviewed, and results considered in the medical decision making process. - CT ABDOMEN/PELVIS CT CT Interpretation: No Acute Changes - IMPRESSION: No inflammatory process identified in the abdomen or pelvis. No abdominal mass, adenopathy or collection seen. No explanation seen for this patient's abdominal pain. CT Interpretation Completed By: Radiologist - Ultrasound No standard instances Ultrasound Interpretation: Positive (See Comments) - GALLBLADDER US IMPRESSION: Hepatomegaly with hepatic steatosis. No definite gallstones are noted. Limited evaluation of the liver, common duct, pancreas, aorta and inferior vena cava due to body habitus. Ultrasound Interpretation Completed By: Radiologist - EKG EKG 2211 Cardiac Rate: NL - 91 BPM EKG Rhythm: Sinus Rhythm EKG Interpretation: NORMAL SINUS RHYTHM Abdominal Pain Fem Course/Dx - Course Course Of Treatment: 61 y/o male presents to the ED with a complaint of acute, constant moderate abdominal pain for the past 3 days in addition to acute, constant, [id number] CP that has persisted for the past 5 hours. During the onset of his CP, he had SOB, Nausea, and vomited x1. Labs and imaging reviewed. the patient will be discharged with a Dx of abdominal pain and aytpical CP. - Diagnoses Provider Diagnoses: Abdominal pain, Atypical chest pain Discharge - Discharge Plan Condition: Stable Disposition: HOME Discharge Disposition Comment: Please follow up with your primary care provider within 3 days. Patient Education Materials: Acute Abdominal Pain (ED), Chest Pain (ED) The documentation as recorded by the Derrick ramirez Aidan accurately reflects the service I personally performed and the decisions made by Raoul leblanc Emmanuel.
[2017-04-04 05:13] VITALS: BP 143/71
--- NOTE | 2017-04-04 09:15 | RAD ---
Indication: Chest pain. Single AP view of the chest demonstrates no mediastinal shift. There is cardiomegaly. Lung krishnan demonstrate no pleural fluid, pneumonia or pneumothorax. Compared to previous exam of March 26, 2017 no significant change is noted. The study is limited due to body habitus. IMPRESSION: Cardiomegaly without definite evidence of active cardiopulmonary disease.
--- NOTE | 2017-04-04 09:34 | RAD ---
Indication: Abdominal pain. Contrast: Administered 141.1 ml of VISIPAQUE 320 mg/ml CT of the abdomen and pelvis was performed after oral and IV contrast administration. Coronal and sagittal reconstructed images were obtained. The lung bases demonstrate no pleural fluid, nodules or masses. Dependent changes are noted in the right lung base. The liver is normal in size. No focal lesions or intrahepatic duct dilatation is noted. The spleen is normal in size. The gallbladder is partially contracted with no evidence of calcified gallstones. Common duct is not dilated. No pericholecystic fluid is identified. The pancreas demonstrates no mass or pancreatic duct dilatation. No adrenal lesions are noted. The kidneys demonstrate symmetric nephrograms without focal lesions. Aorta and inferior vena cava are unremarkable. No dilated loops of bowel are noted. There is diverticulosis of colon without definite evidence of diverticulitis. Urinary bladder is unremarkable. The remainder of the pelvic organs are grossly unremarkable with a large pannus in place. IMPRESSION: Diverticulosis without definite evidence of diverticulitis. No abnormal masses or fluid collections are identified.
== END 2017-04-04 05:18 | disposition home or self-care (01) ==
LOC: ED 21:21
DX: R10.0 Acute abdomen (principal); R07.89 Other chest pain; R06.02 Shortness of breath; K57.30 Diverticulosis of large intestine without perforation or abscess without bleeding; R11.2 Nausea with vomiting, unspecified; E11.9 Type 2 diabetes mellitus without complications; Z79.4 Long term (current) use of insulin; Z79.84 Long term (current) use of oral hypoglycemic drugs; I50.9 Heart failure, unspecified; E78.00 Pure hypercholesterolemia, unspecified; I10 Essential (primary) hypertension; J44.9 Chronic obstructive pulmonary disease, unspecified; K21.9 Gastro-esophageal reflux disease without esophagitis; Z87.442 Personal history of urinary calculi; G43.909 Migraine, unspecified, not intractable, without status migrainosus; Z86.73 Personal history of transient ischemic attack (TIA), and cerebral infarction without residual deficits; F41.9 Anxiety disorder, unspecified; F32.9 Major depressive disorder, single episode, unspecified; F12.90 Cannabis use, unspecified, uncomplicated; Z88.6 Allergy status to analgesic agent; F17.210 Nicotine dependence, cigarettes, uncomplicated
CPT/HCPCS: 36415; 71010; 74177; 76705; 80053; 81003; 83605; 83690; 83880; 84484; 85025; 85610; 85730; 96361; 96374; 96375; 99285; J2270; J2405; Q9967

== ENCOUNTER 2017-12-30 14:30 | Inpatient (IN) | payer MEDICARE, MEDICAID ==
[2017-12-30] MEDS ORDERED: NS 0.9% 1000 ML* 1,000 ML IV ONE ×2 (15:20→19:18)
--- NOTE | 2017-12-30 15:59 | RAD ---
Indication: Chest pain. Single frontal view of the chest performed at 1531 hours was reviewed. Comparison is made with previous exam dated April 03, 2017. No mediastinal shift is noted. Heart is of normal size and configuration. Lung krishnan appear clear. IMPRESSION: NO ACTIVE CARDIOPULMONARY DISEASE IS NOTED.
[2017-12-30 16:09] LABS: ABS Basophils 0.1 10^3/ul (0-0.2); ABS Eosinophils 0 10^3/ul (0-0.6); ABS Lymphocytes 1.1 10^3/ul (1.0-4.8); ABS Monocytes 1.4 10^3/ul (0-0.8); ABS Neutrophils 16.8 10^3/ul (1.5-7.7); ABS Nucleated RBC 0 10^3/ul; Eosinophil % 0.1 % (0-6); Hematocrit 52 % (42-52); Lymphocyte % 5.9 % (25-47); Mean Corpuscular HGB Conc 33 g/dl (31-36); Mean Corpuscular Hemoglobin 30 pg (27-31); Mean Corpuscular Volume 91 fL (80-94); Mean Platelet Volume 9 um3 (7.4-10.4); Nucleated Red Blood Cells % 0; Platelet Count 246 10^3/ul (150-450); Red Blood Count 5.72 10^6/ul (4.0-5.4); Red Cell Distribution Width 15 % (10.5-15); White Blood Count 19.4 10^3/ul (3.5-10.8)
[2017-12-30] MEDS ORDERED: Diltiazem IV* 5 MG/ML 5 ML VIAL (for loading dose/IV Push) (25 MG) IV SLOW PU ONE (16:25)
[2017-12-30 16:26] LABS: INR 0.92 (0.77-1.02)
[2017-12-30] MEDS ORDERED: Diltiazem DRIP* 100 MG/100 ML ADDV.BAG IVPB ONE ×2 (16:26→18:18)
[2017-12-30 17:13] LABS: EGFR Non-African American 44.8 (>60)
[2017-12-30] MEDS ORDERED: NitroPRUSSide* 50 MG in NS 0.9% 250 ML* 250 ML IVPB SCH (18:00)
[2017-12-30] MEDS ORDERED: Magnesium Sulfate 1 GM IV* 1 GM/100 ML BAG IV ONE (18:16)
[2017-12-30] MEDS ORDERED: Iodixanol* (CONTRAST) 320 MG/ML 100 ML SDV IV ONE (18:36)
[2017-12-30] MEDS ORDERED: LORazepam INJ* 2 MG/ML 1 ML VIAL IV PUSH ONE (19:08)
--- NOTE | 2017-12-30 19:34 | RAD ---
INDICATION: LEFT lower quadrant abdominal pain. Cocaine use. Post appendectomy. COMPARISON: April 04, 2017 TECHNIQUE: Multidetector CT images were obtained from the lung bases to the ischial tuberosities with 141 mL Visipaque 320 IV and oral contrast. Multiplanar reformation. REPORT: Mild bibasilar subsegmental atelectasis. Negative for pleural effusion, cardiomegaly, or pericardial effusion. Diffuse decreased density of the liver consistent with fatty infiltration. No focal hepatic lesions or biliary dilatation. No CT abnormality of the gallbladder. Unremarkable mildly atrophic pancreas. Unremarkable spleen. Negative for CT abnormality of the upper GI or small bowel. The appendix is not visualized consistent with history of appendectomy. Moderately severe diverticulosis of the colon without findings of diverticulitis. Negative for ascites or free air. Small fat-containing umbilical hernia without inflammatory change. Normal adrenal glands. 3 mm nonobstructing calyceal stone mid to lower pole LEFT kidney without change. Symmetric nephrograms and pyelograms. Negative for suspicious focal renal lesions. Negative for hydronephrosis. Unremarkable nondilated ureters and partially distended urinary bladder. Symmetric seminal vesicles. Negative for lymphadenopathy. Atherosclerotic plaque of normal diameter abdominal aorta and iliac arteries. Physiologic distention of the IVC. Negative for suspicious focal osseous lesions. Advanced L5-S1 degenerative spondylosis. Annular disc bulge with mild impression on the ventral margin of the thecal sac without significant change. IMPRESSION: 1. Post appendectomy. 2. Colonic diverticulosis without findings of acute diverticulitis. 3. Fatty infiltration of the liver. 4. Unchanged 3 mm calyceal stone mid to lower pole LEFT kidney without hydronephrosis.
--- NOTE | 2017-12-30 20:05 | ED ---
Juanito Torrez Stephanie, scribed for Jennifer Disla MD on 12/30/17 at 1533 . HPI Chest Pain - HPI Summary HPI Summary: The pt is a 62 y/o M BIBA to the ED with c/o CP that began at 10:00 today. The pt states he has been ill for about 3 weeks. Symptoms include abd pain that started 3 weeks ago and vomiting. The pt denies diarrhea. The pt states he did 2 lines of cocaine this morning. The pt states today was his first time doing cocaine. Per EMS, BP was 182/119 and he had a HR of 132. The pain is rated as a 10 in severity. He took ibuprofen for pain. The pt was supposed to be taking Lantus insulin by insulin pen, but he reports that he has not been taking it because he states that his glucose meter was reading normal glucose levels. Glucose by EMS was greater than 500. - History of Current Complaint Chief Complaint: EDChestPainROMI Time Seen by Provider: 12/30/17 15:18 Hx Obtained From: Patient, EMS Onset/Duration: Started Hours Ago - 5, Still Present Timing: Constant Initial Severity: Moderate Current Severity: Severe Pain Intensity: 10 Pain Scale Used: 0-10 Numeric Chest Pain Location: Diffuse Chest Pain Radiates: Yes Chest Pain Radiates To:: Epigastric Character: Dull/Aching Aggravating Factor(s): Nothing Alleviating Factor(s): Nothing Associated Signs and Symptoms: Positive: Chest Pain, Abdominal Pain Related History: Obesity - Additional Pertinent History Primary Care Physician: [id number] - Allergy/Home Medications Allergies/Adverse Reactions: Allergies Allergy/AdvReac Type Severity Reaction Status Date / Time aspirin Allergy GI Upset Verified 12/30/17 21:01 ENVIRONMENTAL Allergy Rash And Uncoded 03/26/17 10:18 Itching WOOL Allergy Runny Nose Uncoded 03/26/17 10:18 Home Medications: Home Medications Cetirizine* [ZyrTEC 10 MG TAB*] 10 mg PO DAILY 12/30/17 [History Confirmed 12/30] Diclofenac 1% GEL (NF) [Voltaren 1% GEL (NF)] 2 - 3 grams TOPICAL QID PRN [History Confirmed 12/30/17] Famotidine TAB* [Pepcid 20 MG TAB*] 40 mg PO BID 12/30/17 [History Confirmed 11/18] Gabapentin CAP(*) [Neurontin 300 CAP(*)] 600 mg PO BEDTIME 12/30/17 [History Confirmed 12/30/17] Insulin GLARGINE(*) [Lantus(*)] 25 units SUBCUT BEDTIME 12/30/17 [History Confirmed 12/30/17] Lidocaine 5% OINT* 2 - 3 grams TOPICAL QID 12/30/17 [History Confirmed 12/30/17] Mometasone NASAL (NF) [Nasonex (NF)] 2 spray BOTH NARES DAILY 12/30/17 [History Confirmed 12/30/17] Naproxen Sodium [Aleve] 220 mg PO Q8H MDD 3 tabs 12/30/17 [History Confirmed 11/18] Nicotine PATCH 21 MG/24 HR* 21 mg TRANSDERM DAILY 12/30/17 [History Confirmed ] Simethicone [Gas-X Extra Strength] 125 mg PO Q8H 12/30/17 [History Confirmed 11/18] PMH/Surg Hx/FS Hx/Imm Hx Endocrine/Hematology History: Reports: Hx Diabetes - Controlled w/ pills and insulin Cardiovascular History: Reports: Hx Congestive Heart Failure, Hx Hypercholesterolemia, Hx Hypertension Respiratory History: Reports: Hx Chronic Obstructive Pulmonary Disease (COPD) GI History: Reports: Hx Gastroesophageal Reflux Disease, Other GI Disorders - "Hernia" History: Reports: Hx Kidney Stones Musculoskeletal History: Reports: Hx Arthritis, Hx Back Problems, Hx Orthopedic Injury - Herniated discs, coccyx fracture, "degenerative spine" Sensory History: Reports: Hx Contacts or Glasses - Pt has glasses script but no glasses Denies: Hx Hearing Aid Opthamlomology History: Reports: Hx Contacts or Glasses - Pt has glasses script but no glasses Neurological History: Reports: Hx Migraine, Hx Transient Ischemic Attacks (TIA) - x5, Other Neuro Impairments/Disorders - Parkinsons, Bilateral leg neurophathy Psychiatric History: Reports: Hx Anxiety, Hx Depression, Hx Inpatient Treatment , Hx Community Mental Health Tx, Hx Bipolar Disorder, Hx Suicide Attempt - OD Denies: Hx Eating Disorder, Hx of Violent Episodes Against Others - Surgical History Surgery Procedure, Year, and Place: Appendectomy - Immunization History Immunizations Up to Date: Yes Infectious Disease History: No Infectious Disease History: Denies: Traveled Outside the [place] in Last 30 Days - Family History Known Family History: Positive: Cardiac Disease, Hypertension, Diabetes - Social History Lives: Alone Alcohol Use: None Substance Use Type: Reports: Cocaine, Marijuana Substance Use Comment - Amount & Last Used: 1 joint a day Hx Tobacco Use: Yes Smoking Status (MU): Heavy Every Day Tobacco Smoker Review of Systems Negative: Fever Positive: Chest Pain Respiratory: Negative Positive: Abdominal Pain, Vomiting. Negative: Diarrhea Skin: Negative Positive: Headache Psychological: Normal All Other Systems Reviewed And Are Negative: Yes Physical Exam - Summary Physical Exam Summary: Appearance: Ill-appearing, moderate pain distress, obese Skin: Warm, color reflects adequate perfusion Head: Normal Head/Face inspection Eyes: Conjunctiva clear ENT: Normal inspection Neck: Supple, no nodes, no JVD. Respiratory: Lungs clear, Normal breath sounds, no respiratory distress Cardio: RRR, No murmur, pulses normal, brisk capillary refill Abdomen: tenderness in LLQ, no guarding, no rebound Bowel sounds: present Musculoskeletal: Strength Intact/ ROM intact. No calf tenderness. No edema. Neuro: Alert, muscle tone normal, facial symmetry, speech normal, sensory/motor intact Psychological: Normal Triage Information Reviewed: Yes Vital Signs On Initial Exam: Initial Vitals Temp Pulse Resp BP Pulse Ox 98.5 F 132 19 168/113 95 12/30/17 14:33 12/30/17 14:33 12/30/17 14:33 12/30/17 14:33 12/30/17 14:33 Vital Signs Reviewed: Yes Diagnostics - Vital Signs Vital Signs Temp Pulse Resp BP Pulse Ox 12/30/17 14:33 98.5 F 132 19 168/113 95 - Laboratory Lab Results: Lab Results 12/30/17 12/30/17 12/30/17 Range/Units 15:55 15:55 15:55 WBC 19.4 H (3.5-10.8) 10^3/ul RBC 5.72 H (4.0-5.4) 10^6/ul Hgb 17.0 (14.0-18.0) g/dl Hct 52 (42-52) % MCV 91 (80-94) fL MCH 30 (27-31) pg MCHC 33 (31-36) g/dl RDW 15 (10.5-15) % Plt Count 246 (150-450) 10^3/ul MPV 9 (7.4-10.4) um3 Neut % (Auto) 86.3 H (38-83) % Lymph % (Auto) 5.9 L (25-47) % Esmeralda % (Auto) 7.3 H (0-7) % Eos % (Auto) 0.1 (0-6) % Baso % (Auto) 0.4 (0-2) % Absolute Neuts (auto) 16.8 H (1.5-7.7) 10^3/ul Absolute Lymphs (auto) 1.1 (1.0-4.8) 10^3/ul Absolute Monos (auto) 1.4 H (0-0.8) 10^3/ul Absolute Eos (auto) 0 (0-0.6) 10^3/ul Absolute Basos (auto) 0.1 (0-0.2) 10^3/ul Absolute Nucleated RBC 0 10^3/ul Nucleated RBC % 0 INR (Anticoag Therapy) 0.92 (0.77-1.02) APTT 26.7 (26.0-36.3) seconds D-Dimer, Quantitative < 200 (Less Than 230) ng/mL VBG pH (7.33-7.43) VBG pCO2 (41-51) mmHg VBG pO2 (35-45) mmHg VBG HCO3 (24-28) mmol/L VBG O2 Saturation (70-80) % VBG Base Excess (0-4) Sodium 132 L (133-145) mmol/L Potassium 4.2 (3.5-5.0) mmol/L Chloride 94 L (101-111) mmol/L Carbon Dioxide 20 L (22-32) mmol/L Anion Gap 18 H (2-11) mmol/L BUN 26 H (6-24) mg/dL Creatinine 1.58 H (0.67-1.17) mg/dL Est GFR ( Amer) 57.6 (>60) Est GFR (Non-Af Amer) 44.8 (>60) BUN/Creatinine Ratio 16.5 (8-20) Glucose 460 H (70-100) mg/dL Lactic Acid (0.5-2.0) mmol/L Calcium 9.7 (8.6-10.3) mg/dL Magnesium 1.8 L (1.9-2.7) mg/dL Total Bilirubin 0.60 (0.2-1.0) mg/dL AST 15 (13-39) U/L ALT 7 (7-52) U/L Alkaline Phosphatase 70 (34-104) U/L Total Creatine Kinase 56 (10-223) U/L CK-MB (CK-2) 5.0 (0.6-6.3) ng/mL Troponin I 0.04 H* (<0.04) ng/mL Total Protein 6.9 (6.4-8.9) g/dL Albumin 4.0 (3.2-5.2) g/dL Globulin 2.9 (2-4) g/dL Albumin/Globulin Ratio 1.4 (1-3) Salicylates < 2.50 (<30) mg/dL Urine Opiates Screen (None Detect) Acetaminophen < 15 mcg/mL Ur Barbiturates Screen (None Detect) Ur Phencyclidine Scrn (None Detect) Ur Amphetamines Screen (None Detect) U Benzodiazepines Scrn (None Detect) Urine Cocaine Screen (None Detect) U Cannabinoids Screen (None Detect) Serum Alcohol < 10 (<10) mg/dL 12/30/17 12/30/17 12/30/17 Range/Units 15:55 15:55 16:51 WBC (3.5-10.8) 10^3/ul RBC (4.0-5.4) 10^6/ul Hgb (14.0-18.0) g/dl Hct (42-52) % MCV (80-94) fL MCH (27-31) pg MCHC (31-36) g/dl RDW (10.5-15) % Plt Count (150-450) 10^3/ul MPV (7.4-10.4) um3 Neut % (Auto) (38-83) % Lymph % (Auto) (25-47) % Esmeralda % (Auto) (0-7) % Eos % (Auto) (0-6) % Baso % (Auto) (0-2) % Absolute Neuts (auto) (1.5-7.7) 10^3/ul Absolute Lymphs (auto) (1.0-4.8) 10^3/ul Absolute Monos (auto) (0-0.8) 10^3/ul Absolute Eos (auto) (0-0.6) 10^3/ul Absolute Basos (auto) (0-0.2) 10^3/ul Absolute Nucleated RBC 10^3/ul Nucleated RBC % INR (Anticoag Therapy) (0.77-1.02) APTT (26.0-36.3) seconds D-Dimer, Quantitative (Less Than 230) ng/mL VBG pH 7.32 L (7.33-7.43) VBG pCO2 41 (41-51) mmHg VBG pO2 36 (35-45) mmHg VBG HCO3 20.2 L (24-28) mmol/L VBG O2 Saturation 73.7 (70-80) % VBG Base Excess -4.8 L (0-4) Sodium (133-145) mmol/L Potassium (3.5-5.0) mmol/L Chloride (101-111) mmol/L Carbon Dioxide (22-32) mmol/L Anion Gap (2-11) mmol/L BUN (6-24) mg/dL Creatinine (0.67-1.17) mg/dL Est GFR ( Amer) (>60) Est GFR (Non-Af Amer) (>60) BUN/Creatinine Ratio (8-20) Glucose (70-100) mg/dL Lactic Acid 2.0 (0.5-2.0) mmol/L Calcium (8.6-10.3) mg/dL Magnesium (1.9-2.7) mg/dL Total Bilirubin (0.2-1.0) mg/dL AST (13-39) U/L ALT (7-52) U/L Alkaline Phosphatase (34-104) U/L Total Creatine Kinase (10-223) U/L CK-MB (CK-2) (0.6-6.3) ng/mL Troponin I (<0.04) ng/mL Total Protein (6.4-8.9) g/dL Albumin (3.2-5.2) g/dL Globulin (2-4) g/dL Albumin/Globulin Ratio (1-3) Salicylates (<30) mg/dL Urine Opiates Screen None detected (None Detect) Acetaminophen mcg/mL Ur Barbiturates Screen None detected (None Detect) Ur Phencyclidine Scrn None detected (None Detect) Ur Amphetamines Screen None detected (None Detect) U Benzodiazepines Scrn None detected (None Detect) Urine Cocaine Screen Presumptive positive A (None Detect) U Cannabinoids Screen None detected (None Detect) Serum Alcohol (<10) mg/dL 12/30/17 Range/Units 18:15 WBC (3.5-10.8) 10^3/ul RBC (4.0-5.4) 10^6/ul Hgb (14.0-18.0) g/dl Hct (42-52) % MCV (80-94) fL MCH (27-31) pg MCHC (31-36) g/dl RDW (10.5-15) % Plt Count (150-450) 10^3/ul MPV (7.4-10.4) um3 Neut % (Auto) (38-83) % Lymph % (Auto) (25-47) % Esmeralda % (Auto) (0-7) % Eos % (Auto) (0-6) % Baso % (Auto) (0-2) % Absolute Neuts (auto) (1.5-7.7) 10^3/ul Absolute Lymphs (auto) (1.0-4.8) 10^3/ul Absolute Monos (auto) (0-0.8) 10^3/ul Absolute Eos (auto) (0-0.6) 10^3/ul Absolute Basos (auto) (0-0.2) 10^3/ul Absolute Nucleated RBC 10^3/ul Nucleated RBC % INR (Anticoag Therapy) (0.77-1.02) APTT (26.0-36.3) seconds D-Dimer, Quantitative (Less Than 230) ng/mL VBG pH (7.33-7.43) VBG pCO2 (41-51) mmHg VBG pO2 (35-45) mmHg VBG HCO3 (24-28) mmol/L VBG O2 Saturation (70-80) % VBG Base Excess (0-4) Sodium (133-145) mmol/L Potassium (3.5-5.0) mmol/L Chloride (101-111) mmol/L Carbon Dioxide (22-32) mmol/L Anion Gap (2-11) mmol/L BUN (6-24) mg/dL Creatinine (0.67-1.17) mg/dL Est GFR ( Amer) (>60) Est GFR (Non-Af Amer) (>60) BUN/Creatinine Ratio (8-20) Glucose (70-100) mg/dL Lactic Acid (0.5-2.0) mmol/L Calcium (8.6-10.3) mg/dL Magnesium (1.9-2.7) mg/dL Total Bilirubin (0.2-1.0) mg/dL AST (13-39) U/L ALT (7-52) U/L Alkaline Phosphatase (34-104) U/L Total Creatine Kinase (10-223) U/L CK-MB (CK-2) (0.6-6.3) ng/mL Troponin I 0.04 H* (<0.04) ng/mL Total Protein (6.4-8.9) g/dL Albumin (3.2-5.2) g/dL Globulin (2-4) g/dL Albumin/Globulin Ratio (1-3) Salicylates (<30) mg/dL Urine Opiates Screen (None Detect) Acetaminophen mcg/mL Ur Barbiturates Screen (None Detect) Ur Phencyclidine Scrn (None Detect) Ur Amphetamines Screen (None Detect) U Benzodiazepines Scrn (None Detect) Urine Cocaine Screen (None Detect) U Cannabinoids Screen (None Detect) Serum Alcohol (<10) mg/dL Result Diagrams: 12/30/17 15:55 12/30/17 15:55 Lab Statement: Any lab studies that have been ordered have been reviewed, and results considered in the medical decision making process. - Radiology CXR Xray Interpretation: No Acute Changes Radiology Interpretation Completed By: Radiologist - NO ACTIVE CARDIOPULMONARY DISEASE IS NOTED. - EKG 15:41 Cardiac Rate: Tachycardia EKG Rhythm: SVT - narrow complex atrial tachycardia ST Segment: Non-Specific Ectopy: None EKG Interpretation: prolonged QTc (503) EKG Comparison: Other - c/w 03/27/17 pt is now in rapid atrial rhythm Re-Evaluation - Re-Evaluation First Eval Re-Evaluation Time: 17:17 Change: Unchanged - The pt states he "has a killer HU". HR 124 on cardizem drip. BP is 173/118. The pt states his abd pain is still severe. Second Eval Re-Evaluation Time: 18:00 Change: Unchanged Comment: evaluated with Dr. All Navas, ICU attending. Still with left chest pain intermittent, and left abd pain, severe. HR remains 134 on cardizem drip at 5. BP diastolic 118. discussed management with pt. Chest Pain Course/Dx - Course Course Of Treatment: At 16:38, ED physician is aware of the pts troponin level. Dr. Saucedo recommended that the pt avoid beta blockers and cocaine, could use nitroprusside drip. ED physician spoke to poison control at 17:50, , toxicology fellow, could try nicardipine drip, avoid beta blockers. At 18:00, the pt was evaluated by Dr. All Navas. ED physician spoke to Dr. Navas who suggests an increase in Cardizem, could use clonidine or labetalol for BP if needed Pt signed out to Dr. Blue pending CT abd pelvis results and cocaine metabolism. - Chest Pain Differential Diagnosis/HQI/PQRI: Acute [place], ACS, Angina, Other: - diverticulitis , colitis - Diagnoses Provider Diagnoses: Chest pain, SVT (supraventricular tachycardia), Cocaine abuse, Left sided abdominal pain, Elevated troponin, Poorly controlled diabetes mellitus - Provider Notifications Discussed Care Of Patient With: Joey Saucedo Time Discussed With Above Provider: 16:40 - Critical Care Time Critical Care Time: 30-74 min - 30 minutes Discharge - Discharge Plan Condition: Stable Disposition: OTHER Discharge Disposition Comment: The pt is a sign out to Dr. Blue at 19:00, 12/30 Referrals: Stanislav Damian MD [Primary Care Provider] - 2 Days Additional Instructions: RETURN TO THE ER FOR ANY NEW OR WORSENING SYMPTOM The documentation as recorded by the Juanito ramirez Stephanie accurately reflects the service I personally performed and the decisions made by , Jennifer Disla MD.
--- NOTE | 2017-12-30 21:09 | ED ---
IBrent Jennifer, scribed for Maciej Blue MD on 12/30/17 at 1949 . Progress - Progress Note Progress Note: Pt is a sign out from Dr. Disla pending disposition. CT Abd/Pel. Interpreted by a radiologist. IMPRESSION: 1. Post appendectomy. 2. Colonic diverticulosis without findings of acute diverticulitis. 3. Fatty infiltration of the liver. 4. Unchanged 3 mm calyceal stone mid to lower pole LEFT kidney without hydronephrosis. Dr. Blue has reviewed this report. We will wait for the cocaine to wear off. Pt will be admitted to [facility] [place] Re-Evaluation - Re-Evaluation First Eval Re-Evaluation Time: 17:17 Change: Unchanged - The pt states he "has a killer HU". HR 124 on cardizam drip. BP is 173/118. The pt states his abd pain is still severe. Course/Dx - Course Course Of Treatment: Assumed care of pt. Outgoing physician had already c/s toxicology and cardiology and started case with hospitalist. Pt maintained on 15mg/hr Diltiazem gtt without any change in HR. I gave 2mg IV ativan given his cocaine ingestion and this allowed him to rest comfortably, but again HR did not budge. I again discussed case with cardiology. We decided to hold off on any additional medications so long as pt is stable. Will give adenosine if any decompensation or pt is symptomatic to the HR. D/W Hospitalist who will admit to tele. Ct of the Abd for 3wks of pain is neg. BP is much better controlled after ativan. - Diagnoses Provider Diagnoses: Chest pain, SVT (supraventricular tachycardia), Cocaine abuse, Left sided abdominal pain - Provider Notifications Discussed Care Of Patient With: Joey Saucedo Time Discussed With Above Provider: 20:24 Instructed by Provider To: Other - I updated Dr. Saucedo, cardiology, on pt's condition. Dr. Saucedo recommends waiting until the cocaine wears off. He says to avoid Digoxin and Beta blockers and to try Adenosine if we have to. Pt was also discussed with Dr. Shi, hospitalist, and will be admitted to [facility] [place]. - Critical Care Time Critical Care Time: 30-74 min - CCT is EXCLUSIVE of separately billable procedures. The documentation as recorded by the Brent ramirez Jennifer accurately reflects the service I personally performed and the decisions made by me, Maciej Blue MD.
[2017-12-30 21:22] LABS: Urine Appearance Clear; Urine Blood Negative (Negative); Urine Color Yellow; Urine Ketones 1+ (Negative); Urine Protein Negative (Negative); Urine Urobilinogen Negative (Negative)
--- NOTE | 2017-12-30 23:16 | HP ---
H&P (Free Text) History and Physical: PCP: Mickey Damian MD Date/Time: 12/30/2017 2230 CC: chest pain HPI: Mr Lagunas is a 62YO male very poor historian HX of CAD, TIA, DM2 w/ neuropathy, HTN, COPD, HLD, Parkinsonism, chronic LBP, & GERD who present with onset of generalized weakness and L sided abdominal pain gradually progressing over the past 3 weeks. This AM he decided to try 2 lines of cocaine - reportedly for the first time - to see if it helped his pain. It did not. Afterwards, around 1000 he did develop some vague chest discomfort and palpitations and decided to call EMS for evaluation. He told the ED MD that he took ibuprofen, but denies this to me. His home medication list given to the pharmacy laboratory technician listed naproxen TID which he also cannot confirm. He does not take aspirin and does state that it and the other cause GI upset. He reports some diarrhea and just before going to the floor he got up to the bedside commode and had a moderate ~100-150cc mostly maroon/melanotic stool. Abdomen is diffusely sore. Initial lactic acid of 2.0 had been repeated and decreased to 0.8. CT abd/pel W is benign. Pantoprazole bolus/GTT was initiated. He did receive 324mg aspirin in ED for his chest pain. He is on no anticoagulation. Plio Saucedo MD cardiology was consulted via ED & will arrange follow up. I spoke with Jimbo Chacon MD GI who agreed with management and will arrange follow up in AM, anticipate EGD. Clear liquid diet. PMedHx CAD TIA COPD DM2 w/ neuropathy HTN HLD Parkinsonism chronic LBP GERD tobacco use disorder Ambulatory Orders Carbidopa/Levodop 10/100 MG(*) [Sinemet 10/100 TAB(*)] 1 tab PO BID 11/08/15 Cyclobenzaprine TAB* [Flexeril 10 MG TAB*] 10 mg PO TID PRN 11/08/15 Tiotropium CAP.INH* [Spiriva CAP.INH*] 1 cap.inh INH DAILY 11/08/15 QUEtiapine XR TAB* [Seroquel Xr TAB*] 50 mg PO BEDTIME #30 tab 11/12/[address] CAP* [Cymbalta CAP*] 30 mg PO DAILY 03/26/17 HYDROcodone/ACETAMIN 5-325 MG* [Oley 5-325 TAB*] 1 - 2 tab PO Q6H PRN 03/26/17 Hydrochlorothiazide TAB* [Hydrodiuril TAB*] 25 mg PO DAILY 03/26/17 Lisinopril TAB* [Prinivil TAB 10 MG*] 10 mg PO DAILY 03/26/17 Olopatadine 0.1% OPHTH (NF) [Patanol 0.1% OPHTH (NF)] 1 drop BOTH EYES DAILY Pravastatin (NF) [Pravachol (NF)] 10 mg PO DAILY 03/26/17 diPHENhydraMINE PO* [Benadryl PO 25 MG TAB*] 50 mg PO BID 03/26/17 metFORMIN* [Glucophage 1000 MG TAB *] 1,000 mg PO BID 03/26/17 Carbidopa/Levodop 25/250MG(*) [Sinemet 25/250 TAB(*)] 1 tab PO DAILY 11/29/17 Gabapentin CAP(*) [Neurontin 300 CAP(*)] 300 mg PO BID 11/29/17 Omeprazole CAP* [Prilosec CAP* 20 MG] 20 mg PO DAILY 11/29/17 Cetirizine* [ZyrTEC 10 MG TAB*] 10 mg PO DAILY 12/30/17 Diclofenac 1% GEL (NF) [Voltaren 1% GEL (NF)] 2 - 3 grams TOPICAL QID PRN Famotidine TAB* [Pepcid 20 MG TAB*] 40 mg PO BID 12/30/17 Gabapentin CAP(*) [Neurontin 300 CAP(*)] 600 mg PO BEDTIME 12/30/17 Insulin GLARGINE(*) [Lantus(*)] 25 units SUBCUT BEDTIME 12/30/17 Lidocaine 5% OINT* 2 - 3 grams TOPICAL QID 12/30/17 Mometasone NASAL (NF) [Nasonex (NF)] 2 spray BOTH NARES DAILY 12/30/17 Naproxen Sodium [Aleve] 220 mg PO Q8H MDD 3 tabs 12/30/17 Nicotine PATCH 21 MG/24 HR* 21 mg TRANSDERM DAILY 12/30/17 Simethicone [Gas-X Extra Strength] 125 mg PO Q8H 12/30/17 Allergies aspirin Allergy (Verified 12/30/17 21:01) GI Upset ENVIRONMENTAL Allergy (Uncoded 03/26/17 10:18) Rash And Itching WOOL Allergy (Uncoded 03/26/17 10:18) Runny Nose PSurgHx appendectomy SocHx: 13PPD cigarettes, denies alcohol, admits to prior marijuana use a few months ago previously documented as daily, admits to 2 lines of cocaine this AM as a first time experiment to see if it helped his abdominal pain; , lives alone, 3 adult children; full code status FamHx: Mother: at 72 2nd CAD; Father: age 72 2nd CAD; 2 sisters & 6 brothers whose health is unknown; Daughter: estranged; one son passed at age 31 2nd overdose; his other son is healthy. ROS: as above, otherwise reviewed and all were negative vitals: Vital Signs Temp 36.6 C 12/30/17 18:19 Pulse 136 12/30/17 22:30 Resp 22 12/30/17 22:30 BP 116/65 12/30/17 22:30 Pulse Ox 96 12/30/17 22:30 Intake & Output 12/29/17 12/30/17 12/30/17 23:59 11:59 23:59 Intake Total 2100 Balance 2100 Weight 145.15 kg Intake: IV Fluids 2100 Constitutional: NAD, normally developed, morbidly obese male HEENM: atraumatic; sclera/conjunctiva: anicteric/clear; hearing: clinically intact; oropharynx: clear, mucosa tacky Neck: soft tissue: non-tender; thyroid: normal Pulmonary: diminished bilaterally, fair to good aeration, no accessory muscle use CV: TR/RR, normal S1S2, no carotid bruit, no jugular venous distention, 1+ B DP/ PT, trace BLE edema Abdominal: soft, non-distended, mildly diffusely tender, no rebound/guarding/ rigidity, normoactive bowel sounds, no hepatosplenomegaly or masses, no costovertebral angle tenderness Musculoskeletal: general: grossly intact, no tenderness to palpation; gait: stable getting to/from bedside toilet independently Integumental: normal appearance and texture of exposed skin Psychiatric orientation: AA&O to PPS affect: flat mood: cooperative/disinterested eye contact: poor content: unreliable memory: questionable responses: mildly slowed insight: very poor Testing: Lab Results 12/30/17 12/30/17 12/30/17 Range/Units 15:55 15:55 15:55 WBC 19.4 H (3.5-10.8) 10^3/ul RBC 5.72 H (4.0-5.4) 10^6/ul Hgb 17.0 (14.0-18.0) g/dl Hct 52 (42-52) % MCV 91 (80-94) fL MCH 30 (27-31) pg MCHC 33 (31-36) g/dl RDW 15 (10.5-15) % Plt Count 246 (150-450) 10^3/ul MPV 9 (7.4-10.4) um3 Neut % (Auto) 86.3 H (38-83) % Lymph % (Auto) 5.9 L (25-47) % Addison % (Auto) 7.3 H (0-7) % Eos % (Auto) 0.1 (0-6) % Baso % (Auto) 0.4 (0-2) % Absolute Neuts (auto) 16.8 H (1.5-7.7) 10^3/ul Absolute Lymphs (auto) 1.1 (1.0-4.8) 10^3/ul Absolute Monos (auto) 1.4 H (0-0.8) 10^3/ul Absolute Eos (auto) 0 (0-0.6) 10^3/ul Absolute Basos (auto) 0.1 (0-0.2) 10^3/ul Absolute Nucleated RBC 0 10^3/ul Nucleated RBC % 0 INR (Anticoag Therapy) 0.92 (0.77-1.02) APTT 26.7 (26.0-36.3) seconds D-Dimer, Quantitative < 200 (Less Than 230) ng/mL VBG pH (7.33-7.43) VBG pCO2 (41-51) mmHg VBG pO2 (35-45) mmHg VBG HCO3 (24-28) mmol/L VBG O2 Saturation (70-80) % VBG Base Excess (0-4) Sodium 132 L (133-145) mmol/L Potassium 4.2 (3.5-5.0) mmol/L Chloride 94 L (101-111) mmol/L Carbon Dioxide 20 L (22-32) mmol/L Anion Gap 18 H (2-11) mmol/L BUN 26 H (6-24) mg/dL Creatinine 1.58 H (0.67-1.17) mg/dL Est GFR ( Amer) 57.6 (>60) Est GFR (Non-Af Amer) 44.8 (>60) BUN/Creatinine Ratio 16.5 (8-20) Glucose 460 H (70-100) mg/dL POC Glucose (mg/dL) (70-100) mg/dL Lactic Acid (0.5-2.0) mmol/L Calcium 9.7 (8.6-10.3) mg/dL Magnesium 1.8 L (1.9-2.7) mg/dL Total Bilirubin 0.60 (0.2-1.0) mg/dL AST 15 (13-39) U/L ALT 7 (7-52) U/L Alkaline Phosphatase 70 (34-104) U/L Total Creatine Kinase 56 (10-223) U/L CK-MB (CK-2) 5.0 (0.6-6.3) ng/mL Troponin I 0.04 H* (<0.04) ng/mL Total Protein 6.9 (6.4-8.9) g/dL Albumin 4.0 (3.2-5.2) g/dL Globulin 2.9 (2-4) g/dL Albumin/Globulin Ratio 1.4 (1-3) Urine Color Urine Appearance Urine pH (5-9) Ur Specific Delight (1.010-1.030) Urine Protein (Negative) Urine Ketones (Negative) Urine Blood (Negative) Urine Nitrate (Negative) Urine Bilirubin (Negative) Urine Urobilinogen (Negative) Ur Leukocyte Esterase (Negative) Urine Glucose (Negative) Salicylates < 2.50 (<30) mg/dL Urine Opiates Screen (None Detect) Acetaminophen < 15 mcg/mL Ur Barbiturates Screen (None Detect) Ur Phencyclidine Scrn (None Detect) Ur Amphetamines Screen (None Detect) U Benzodiazepines Scrn (None Detect) Urine Cocaine Screen (None Detect) U Cannabinoids Screen (None Detect) Serum Alcohol < 10 (<10) mg/dL 12/30/17 12/30/17 12/30/17 Range/Units 15:55 15:55 16:51 WBC (3.5-10.8) 10^3/ul RBC (4.0-5.4) 10^6/ul Hgb (14.0-18.0) g/dl Hct (42-52) % MCV (80-94) fL MCH (27-31) pg MCHC (31-36) g/dl RDW (10.5-15) % Plt Count (150-450) 10^3/ul MPV (7.4-10.4) um3 Neut % (Auto) (38-83) % Lymph % (Auto) (25-47) % Addison % (Auto) (0-7) % Eos % (Auto) (0-6) % Baso % (Auto) (0-2) % Absolute Neuts (auto) (1.5-7.7) 10^3/ul Absolute Lymphs (auto) (1.0-4.8) 10^3/ul Absolute Monos (auto) (0-0.8) 10^3/ul Absolute Eos (auto) (0-0.6) 10^3/ul Absolute Basos (auto) (0-0.2) 10^3/ul Absolute Nucleated RBC 10^3/ul Nucleated RBC % INR (Anticoag Therapy) (0.77-1.02) APTT (26.0-36.3) seconds D-Dimer, Quantitative (Less Than 230) ng/mL VBG pH 7.32 L (7.33-7.43) VBG pCO2 41 (41-51) mmHg VBG pO2 36 (35-45) mmHg VBG HCO3 20.2 L (24-28) mmol/L VBG O2 Saturation 73.7 (70-80) % VBG Base Excess -4.8 L (0-4) Sodium (133-145) mmol/L Potassium (3.5-5.0) mmol/L Chloride (101-111) mmol/L Carbon Dioxide (22-32) mmol/L Anion Gap (2-11) mmol/L BUN (6-24) mg/dL Creatinine (0.67-1.17) mg/dL Est GFR ( Amer) (>60) Est GFR (Non-Af Amer) (>60) BUN/Creatinine Ratio (8-20) Glucose (70-100) mg/dL POC Glucose (mg/dL) (70-100) mg/dL Lactic Acid 2.0 (0.5-2.0) mmol/L Calcium (8.6-10.3) mg/dL Magnesium (1.9-2.7) mg/dL Total Bilirubin (0.2-1.0) mg/dL AST (13-39) U/L ALT (7-52) U/L Alkaline Phosphatase (34-104) U/L Total Creatine Kinase (10-223) U/L CK-MB (CK-2) (0.6-6.3) ng/mL Troponin I (<0.04) ng/mL Total Protein (6.4-8.9) g/dL Albumin (3.2-5.2) g/dL Globulin (2-4) g/dL Albumin/Globulin Ratio (1-3) Urine Color Urine Appearance Urine pH (5-9) Ur Specific Delight (1.010-1.030) Urine Protein (Negative) Urine Ketones (Negative) Urine Blood (Negative) Urine Nitrate (Negative) Urine Bilirubin (Negative) Urine Urobilinogen (Negative) Ur Leukocyte Esterase (Negative) Urine Glucose (Negative) Salicylates (<30) mg/dL Urine Opiates Screen None detected (None Detect) Acetaminophen mcg/mL Ur Barbiturates Screen None detected (None Detect) Ur Phencyclidine Scrn None detected (None Detect) Ur Amphetamines Screen None detected (None Detect) U Benzodiazepines Scrn None detected (None Detect) Urine Cocaine Screen Presumptive positive A (None Detect) U Cannabinoids Screen None detected (None Detect) Serum Alcohol (<10) mg/dL 12/30/17 12/30/17 12/30/17 Range/Units 18:15 21:00 21:00 WBC (3.5-10.8) 10^3/ul RBC (4.0-5.4) 10^6/ul Hgb (14.0-18.0) g/dl Hct (42-52) % MCV (80-94) fL MCH (27-31) pg MCHC (31-36) g/dl RDW (10.5-15) % Plt Count (150-450) 10^3/ul MPV (7.4-10.4) um3 Neut % (Auto) (38-83) % Lymph % (Auto) (25-47) % Addison % (Auto) (0-7) % Eos % (Auto) (0-6) % Baso % (Auto) (0-2) % Absolute Neuts (auto) (1.5-7.7) 10^3/ul Absolute Lymphs (auto) (1.0-4.8) 10^3/ul Absolute Monos (auto) (0-0.8) 10^3/ul Absolute Eos (auto) (0-0.6) 10^3/ul Absolute Basos (auto) (0-0.2) 10^3/ul Absolute Nucleated RBC 10^3/ul Nucleated RBC % INR (Anticoag Therapy) (0.77-1.02) APTT (26.0-36.3) seconds D-Dimer, Quantitative (Less Than 230) ng/mL VBG pH (7.33-7.43) VBG pCO2 (41-51) mmHg VBG pO2 (35-45) mmHg VBG HCO3 (24-28) mmol/L VBG O2 Saturation (70-80) % VBG Base Excess (0-4) Sodium (133-145) mmol/L Potassium (3.5-5.0) mmol/L Chloride (101-111) mmol/L Carbon Dioxide (22-32) mmol/L Anion Gap (2-11) mmol/L BUN (6-24) mg/dL Creatinine (0.67-1.17) mg/dL Est GFR ( Amer) (>60) Est GFR (Non-Af Amer) (>60) BUN/Creatinine Ratio (8-20) Glucose (70-100) mg/dL POC Glucose (mg/dL) (70-100) mg/dL Lactic Acid 0.8 (0.5-2.0) mmol/L Calcium (8.6-10.3) mg/dL Magnesium (1.9-2.7) mg/dL Total Bilirubin (0.2-1.0) mg/dL AST (13-39) U/L ALT (7-52) U/L Alkaline Phosphatase (34-104) U/L Total Creatine Kinase (10-223) U/L CK-MB (CK-2) (0.6-6.3) ng/mL Troponin I 0.04 H* 0.04 H* (<0.04) ng/mL Total Protein (6.4-8.9) g/dL Albumin (3.2-5.2) g/dL Globulin (2-4) g/dL Albumin/Globulin Ratio (1-3) Urine Color Urine Appearance Urine pH (5-9) Ur Specific Delight (1.010-1.030) Urine Protein (Negative) Urine Ketones (Negative) Urine Blood (Negative) Urine Nitrate (Negative) Urine Bilirubin (Negative) Urine Urobilinogen (Negative) Ur Leukocyte Esterase (Negative) Urine Glucose (Negative) Salicylates (<30) mg/dL Urine Opiates Screen (None Detect) Acetaminophen mcg/mL Ur Barbiturates Screen (None Detect) Ur Phencyclidine Scrn (None Detect) Ur Amphetamines Screen (None Detect) U Benzodiazepines Scrn (None Detect) Urine Cocaine Screen (None Detect) U Cannabinoids Screen (None Detect) Serum Alcohol (<10) mg/dL 12/30/17 12/30/17 Range/Units 21:07 21:08 WBC (3.5-10.8) 10^3/ul RBC (4.0-5.4) 10^6/ul Hgb (14.0-18.0) g/dl Hct (42-52) % MCV (80-94) fL MCH (27-31) pg MCHC (31-36) g/dl RDW (10.5-15) % Plt Count (150-450) 10^3/ul MPV (7.4-10.4) um3 Neut % (Auto) (38-83) % Lymph % (Auto) (25-47) % Addison % (Auto) (0-7) % Eos % (Auto) (0-6) % Baso % (Auto) (0-2) % Absolute Neuts (auto) (1.5-7.7) 10^3/ul Absolute Lymphs (auto) (1.0-4.8) 10^3/ul Absolute Monos (auto) (0-0.8) 10^3/ul Absolute Eos (auto) (0-0.6) 10^3/ul Absolute Basos (auto) (0-0.2) 10^3/ul Absolute Nucleated RBC 10^3/ul Nucleated RBC % INR (Anticoag Therapy) (0.77-1.02) APTT (26.0-36.3) seconds D-Dimer, Quantitative (Less Than 230) ng/mL VBG pH (7.33-7.43) VBG pCO2 (41-51) mmHg VBG pO2 (35-45) mmHg VBG HCO3 (24-28) mmol/L VBG O2 Saturation (70-80) % VBG Base Excess (0-4) Sodium (133-145) mmol/L Potassium (3.5-5.0) mmol/L Chloride (101-111) mmol/L Carbon Dioxide (22-32) mmol/L Anion Gap (2-11) mmol/L BUN (6-24) mg/dL Creatinine (0.67-1.17) mg/dL Est GFR ( Amer) (>60) Est GFR (Non-Af Amer) (>60) BUN/Creatinine Ratio (8-20) Glucose (70-100) mg/dL POC Glucose (mg/dL) 359 H (70-100) mg/dL Lactic Acid (0.5-2.0) mmol/L Calcium (8.6-10.3) mg/dL Magnesium (1.9-2.7) mg/dL Total Bilirubin (0.2-1.0) mg/dL AST (13-39) U/L ALT (7-52) U/L Alkaline Phosphatase (34-104) U/L Total Creatine Kinase (10-223) U/L CK-MB (CK-2) (0.6-6.3) ng/mL Troponin I (<0.04) ng/mL Total Protein (6.4-8.9) g/dL Albumin (3.2-5.2) g/dL Globulin (2-4) g/dL Albumin/Globulin Ratio (1-3) Urine Color Yellow Urine Appearance Clear Urine pH 5.0 (5-9) Ur Specific Delight 1.030 (1.010-1.030) Urine Protein Negative (Negative) Urine Ketones 1+ A (Negative) Urine Blood Negative (Negative) Urine Nitrate Negative (Negative) Urine Bilirubin Negative (Negative) Urine Urobilinogen Negative (Negative) Ur Leukocyte Esterase Negative (Negative) Urine Glucose 3+(>=500 mg/dl) A (Negative) Salicylates (<30) mg/dL Urine Opiates Screen (None Detect) Acetaminophen mcg/mL Ur Barbiturates Screen (None Detect) Ur Phencyclidine Scrn (None Detect) Ur Amphetamines Screen (None Detect) U Benzodiazepines Scrn (None Detect) Urine Cocaine Screen (None Detect) U Cannabinoids Screen (None Detect) Serum Alcohol (<10) mg/dL ECG, personally reviewed: accelerated junctional tachycardia rate 137, no ischemia CXR, personally reviewed: IMPRESSION: NO ACTIVE CARDIOPULMONARY DISEASE IS NOTED. CTA chest/abd/pel, personally reviewed: IMPRESSION: 1. Post appendectomy. 2. Colonic diverticulosis without findings of acute diverticulitis. 3. Fatty infiltration of the liver. 4. Unchanged 3 mm calyceal stone mid to lower pole LEFT kidney without hydro- nephrosis. ECHO 03/26/2017: Conclusions: The left ventricle appears hyperdynamic. The estimated ejection fraction is greater than 65%. Global left ventricular wall motion and contractility are within normal limits. Moderate concentric left ventricular hypertrophy is observed. There is an E to A reversal in the mitral valve flow pattern suggestive of diastolic dysfunction. Normal cardiac chamber sizes. Functionally benign heart valves. There is no prior echocardiogram available to compare with at this time. Impression: 62M HX CAD, TIA, DM2 w/ neuropathy, HTN, COPD, HLD, Parkinsonism, chronic LBP, & GERD present with cocaine induced chest pain for r/o ACS DIAGNOSIS & PLAN Primary SIRS, cannot r/o infection ? source : blood CX : IVFs : IV piperacillin/tazobactam : recheck lactate in AM cocaine induced chest pain r/o ACS : HX CAD : telemetry : trend troponin : aspirin give in ED, none further 2nd GI bleeding : no beta-elton 2nd cocaine use : supplemental chest pain : control BP to systolic <160s : Pilo Saucedo MD cardiology apprised by ED, allow cocaine to wear off, reasonable rate control : social staff worker consult for abstinence resources : supportive care presumed upper GI bleed ? NSAID use : pantoprazole bolus/GTT : clear liquid diet : type & screen added to ED draw : EGD anticipated for AM : Jimbo Chacon MD GI consulted, will arrange evaluation in AM : supplemental oxygen HTNive urgency 2nd cocaine use : control BP to systolic <150 : await cocaine metabolism : telemetry APOLLO : IVFs, trend : hold metformin, lisinopril, NSAIDS, HCTZ, & other nephrotoxic agents Secondary HX TIA : no acute issues DM2 w/ neuropathy : check A1c : hold metformin in setting of APOLLO : continue gabapentin & glargine HTN : hold lisinopril as above COPD : continue tiotropium HLD : continue pravastatin Parkinsonism : continue carbi/levodopa chronic LBP : continue cyclobenzaprine : hold hydrocodoneAPAP : PRN oxycodone : hold diclofenac gel in setting of APOLLO GERD : continue omeprazole & famotidine depression ? bipolar : continue duloxetine & quetiapine tobacco use disorder : cessation advised, low motivation : continue nicotine patch Admission Rational: observation for cocaine induced chest pain, hyperensive urgency, & APOLLO DVTp: SCDs Code Status: full
[2017-12-30] MEDS ORDERED: Albuterol 2.5 MG/3 ML NEB.SOL* (0.083%) INH PRN (23:18)
[2017-12-30] MEDS ORDERED: CMCS: Melatonin (NF) 3 MG TAB PO PRN (23:32)
[2017-12-30] MEDS ORDERED: Ondansetron INJ* 2 MG/ML VIAL IV PRN (23:32)
[2017-12-30] MEDS ORDERED: NS 0.9% 1000 ML* 1,000 ML IV SCH (23:45)
[2017-12-31] MEDS ORDERED: Pantoprazole IV* 40 MG IV ONE (00:01)
[2017-12-31] MEDS: NS 0.9% 1000 ML* 1,000 ML IV SCH ×5 (01:23→14:12)
[2017-12-31] MEDS: Pantoprazole IV* 80 MG in NS 0.9% 250 ML* 250 ML IVPB SCH ×2 (02:33→12:19)
[2017-12-31] MEDS: Insulin LISPRO* 1 UNITS UNIT SUBCUT SCH ×5 (03:30→20:53)
[2017-12-31] MEDS: ZOSYN 3.375 GM x ONE DOSE over 30 miuntes IVPB ×4 (03:44→03:47)
[2017-12-31 04:59] LABS: Hematocrit 44 % (42-52); Hemoglobin 14.5 g/dl (14.0-18.0)
[2017-12-31 05:00] LABS: ABS Basophils 0.1 10^3/ul (0-0.2); ABS Eosinophils 0 10^3/ul (0-0.6); ABS Lymphocytes 1.5 10^3/ul (1.0-4.8); ABS Monocytes 0.9 10^3/ul (0-0.8); ABS Neutrophils 11.3 10^3/ul (1.5-7.7); ABS Nucleated RBC 0 10^3/ul; Eosinophil % 0.1 % (0-6); Hematocrit 44 % (42-52); Hemoglobin 14.7 g/dl (14.0-18.0); Lymphocyte % 10.8 % (25-47); Mean Corpuscular HGB Conc 34 g/dl (31-36); Mean Corpuscular Hemoglobin 30 pg (27-31); Mean Corpuscular Volume 90 fL (80-94); Mean Platelet Volume 8 um3 (7.4-10.4); Nucleated Red Blood Cells % 0; Platelet Count 210 10^3/ul (150-450); Red Blood Count 4.86 10^6/ul (4.0-5.4); Red Cell Distribution Width 16 % (10.5-15); White Blood Count 13.8 10^3/ul (3.5-10.8)
[2017-12-31] MEDS: Pravastatin (NF) 10 MG TAB PO SCH (08:13)
[2017-12-31] MEDS: Piperacillin/Tazobac ADVAN(*) 3.375 GM in NS 0.9% 100 ML* 100 ML IVPB SCH ×2 (08:20→16:10)
[2017-12-31] MEDS: Nicotine PATCH 21 MG/24 HR* PATCH TRANSDERM SCH (08:23)
[2017-12-31] MEDS: Famotidine TAB* 20 MG PO SCH ×2 (08:25→20:54)
[2017-12-31] MEDS: DULoxetine DR CAP* 30 MG CAP.DR PO SCH (08:25)
[2017-12-31] MEDS: Carbidopa/Levodop 25/250MG TAB(*) PO SCH (08:25)
[2017-12-31] MEDS ORDERED: Digoxin IV* 0.5 MG/2 ML AMP (0.25 MG/ML) IV SLOW PU ONE (08:25)
[2017-12-31] MEDS: Carbidopa/Levodop 10/100 MG TAB(*) PO SCH ×2 (08:25→20:55)
[2017-12-31] MEDS: Gabapentin CAP(*) 300 MG PO SCH ×2 (08:25→20:54)
[2017-12-31] MEDS: Docusate CAP* 100 MG PO SCH ×2 (08:26→20:55)
[2017-12-31] MEDS: Tiotropium CAP.INH* CAP.INH/18 MCG (USE ORDER SET !) INH SCH (08:30)
[2017-12-31] MEDS ORDERED: Aspirin EC Low Dose* 81 MG TAB.EC PO SCH (09:00)
[2017-12-31] MEDS ORDERED: Omeprazole CAP* 20 MG PO SCH (09:00)
[2017-12-31] MEDS ORDERED: Spiriva Inhaler DEVICE* 1 EACH DEVICE INH ONE (09:00)
[2017-12-31] MEDS ORDERED: cefTRIAXone(*) 1 GM in NS 0.9% 50 ML* 50 ML IVPB SCH (12:00)
[2017-12-31] MEDS: Diltiazem TAB* 60 MG PO SCH ×2 (12:19→17:23)
[2017-12-31] MEDS: metroNIDAZOLE IV 500 MG/100ML* 500 MG/100 ML BAG IVPB SCH ×2 (12:45→20:37)
--- NOTE | 2017-12-31 12:50 | PN ---
Subjective Date of Service: 12/31/17 Interval History: pt c/o pain all over that was started with abd pain and bloody diarrhea 2 days ago. Pt had fever at home. Objective Active Medications: Acetaminophen (Tylenol Tab*) 650 mg PO Q6H PRN PRN Reason: FEVER/PAIN Albuterol (Ventolin 2.5 Mg/3 Ml Neb.Miriam*) 2.5 mg INH Q2H PRN PRN Reason: SOB/WHEEZING Carbidopa/Levodopa (Sinemet 10/100 Tab(*)) 1 tab PO BID [facility] Last Admin: 12/31/17 08:25 Dose: 1 tab Carbidopa/Levodopa (Sinemet 25/250 Tab(*)) 1 tab PO DAILY [facility] Last Admin: 12/31/17 08:25 Dose: 1 tab Cyclobenzaprine HCl (Flexeril Tab*) 10 mg PO TID PRN PRN Reason: muscle spasms Diltiazem HCl (Cardizem Tab*) 60 mg PO Q6HR [facility] Last Admin: 12/31/17 12:19 Dose: 60 mg Docusate Sodium (Colace Cap*) 200 mg PO BID [facility] Last Admin: 12/31/17 08:26 Dose: Not Given Duloxetine HCl (Cymbalta Cap*) 30 mg PO DAILY [facility] Last Admin: 12/31/17 08:25 Dose: 30 mg Famotidine (Pepcid Tab*) 40 mg PO BID [facility] Last Admin: 12/31/17 08:25 Dose: 40 mg Gabapentin (Neurontin Cap(*)) 300 mg PO BID [facility] Last Admin: 12/31/17 08:25 Dose: 300 mg Pantoprazole Sodium 80 mg/ (Sodium Chloride) 250 mls @ 25 mls/hr IVPB Q10H [facility] Last Admin: 12/31/17 12:19 Dose: 25 mls/hr Sodium Chloride (Ns 0.9% 1000 Ml*) 1,000 mls @ 0 mls/hr IV WIDE OPEN [facility] PRN Reason: Wide Open Stop: 01/01/18 00:16 Last Admin: 12/31/17 02:27 Dose: 999 mls/hr Sodium Chloride (Ns 0.9% 1000 Ml*) 1,000 mls @ 150 mls/hr IV PER RATE [facility] Last Admin: 12/31/17 11:00 Dose: 150 mls/hr Piperacillin Sod/Tazobactam (Sod 3.375 gm/ Sodium Chloride) 100 mls @ 25 mls/ hr IVPB Q8H [facility] Last Admin: 12/31/17 08:20 Dose: 25 mls/hr Metronidazole/Sodium Chloride (Flagyl 500 Mg Ivpb*) 500 mg in 100 mls @ 100 mls /hr IVPB Q8H [facility] Last Admin: 12/31/17 12:45 Dose: 100 mls/hr Ceftriaxone Sodium 1 gm/ (Sodium Chloride) 50 mls @ 200 mls/hr IVPB Q24H [facility] Last Admin: 12/31/17 12:19 Dose: 200 mls/hr Insulin Glargine (Lantus(*)) 34 units 0.24 units/kg (34 units) SUBCUT 2100 [facility] Stop: 01/01/18 20:00 Insulin Human Lispro (Humalog*) 0 units SUBCUT Q4H [facility] PRN Reason: Protocol Last Admin: 12/31/17 12:19 Dose: 6 units Melatonin (Melatonin (Nf)) 3 mg PO BEDTIME PRN; Protocol PRN Reason: Sleep Nicotine (Nicotine Patch 21 Mg/24 Hr*) 1 patch TRANSDERM DAILY [facility] Last Admin: 12/31/17 08:23 Dose: 1 patch Ondansetron HCl (Zofran Inj*) 4 mg IV Q6H PRN PRN Reason: NAUSEA Pharmacy Profile Note (Nicotine Patch Removal Note*) 1 note PATCH OFF 2099 [facility] Pravastatin Sodium (Pravachol (Nf)) 10 mg PO DAILY [facility] Last Admin: 12/31/17 08:13 Dose: Not Given Quetiapine Fumarate (Seroquel Xr Tab*) 50 mg PO BEDTIME [facility] Tiotropium [place] (Spiriva Cap.Inh*) 1 cap INH DAILY [facility] Last Admin: 12/31/17 08:30 Dose: 1 cap Vital Signs - 8 hr 12/31/17 12/31/17 10:36 11:52 Temperature 98.6 F Pulse Rate 87 Respiratory 18 18 Rate Blood Pressure 110/59 (mmHg) O2 Sat by Pulse 92 Oximetry Oxygen Devices in Use Now: None Appearance: 62 yo M in nAD, aAOx3 Eyes: No Scleral Icterus, PERRLA Ears/Nose/Mouth/Throat: NL Teeth, Lips, Gums, Mucous Membranes Moist Neck: NL Appearance and Movements; NL JVP, Trachea Midline Respiratory: Symmetrical Chest Expansion and Respiratory Effort, Clear to Auscultation Cardiovascular: - - irregular, tachy, no murmur Abdominal: No Hepatosplenomegaly, - - diffuse mild tenderness worse in LLQ, no rebound, no guarding, BS+ Lymphatic: No Cervical Adenopathy Extremities: No Clubbing, Cyanosis, - - trace b/l nonpitting pedal edema Skin: No Rash or Ulcers, No Nodules or Sclerosis Neurological: Alert and Oriented x 3, NL Muscle Strength and Tone Result Diagrams: 12/31/17 04:51 12/31/17 04:51 Additional Lab and Data: Lab Results 12/30/17 12/30/17 12/30/17 Range/Units 15:55 15:55 15:55 WBC 19.4 H (3.5-10.8) 10^3/ul RBC 5.72 H (4.0-5.4) 10^6/ul Hgb 17.0 (14.0-18.0) g/dl Hct 52 (42-52) % MCV 91 (80-94) fL MCH 30 (27-31) pg MCHC 33 (31-36) g/dl RDW 15 (10.5-15) % Plt Count 246 (150-450) 10^3/ul MPV 9 (7.4-10.4) um3 Neut % (Auto) 86.3 H (38-83) % Lymph % (Auto) 5.9 L (25-47) % Caroline % (Auto) 7.3 H (0-7) % Eos % (Auto) 0.1 (0-6) % Baso % (Auto) 0.4 (0-2) % Absolute Neuts (auto) 16.8 H (1.5-7.7) 10^3/ul Absolute Lymphs (auto) 1.1 (1.0-4.8) 10^3/ul Absolute Monos (auto) 1.4 H (0-0.8) 10^3/ul Absolute Eos (auto) 0 (0-0.6) 10^3/ul Absolute Basos (auto) 0.1 (0-0.2) 10^3/ul Absolute Nucleated RBC 0 10^3/ul Nucleated RBC % 0 INR (Anticoag Therapy) 0.92 (0.77-1.02) APTT 26.7 (26.0-36.3) seconds D-Dimer, Quantitative < 200 (Less Than 230) ng/mL VBG pH (7.33-7.43) VBG pCO2 (41-51) mmHg VBG pO2 (35-45) mmHg VBG HCO3 (24-28) mmol/L VBG O2 Saturation (70-80) % VBG Base Excess (0-4) Sodium 132 L (133-145) mmol/L Potassium 4.2 (3.5-5.0) mmol/L Chloride 94 L (101-111) mmol/L Carbon Dioxide 20 L (22-32) mmol/L Anion Gap 18 H (2-11) mmol/L BUN 26 H (6-24) mg/dL Creatinine 1.58 H (0.67-1.17) mg/dL Est GFR ( Amer) 57.6 (>60) Est GFR (Non-Af Amer) 44.8 (>60) BUN/Creatinine Ratio 16.5 (8-20) Glucose 460 H (70-100) mg/dL Lactic Acid (0.5-2.0) mmol/L Calcium 9.7 (8.6-10.3) mg/dL Magnesium 1.8 L (1.9-2.7) mg/dL Total Bilirubin 0.60 (0.2-1.0) mg/dL AST 15 (13-39) U/L ALT 7 (7-52) U/L Alkaline Phosphatase 70 (34-104) U/L Total Creatine Kinase 56 (10-223) U/L CK-MB (CK-2) 5.0 (0.6-6.3) ng/mL Troponin I 0.04 H* (<0.04) ng/mL Total Protein 6.9 (6.4-8.9) g/dL Albumin 4.0 (3.2-5.2) g/dL Globulin 2.9 (2-4) g/dL Albumin/Globulin Ratio 1.4 (1-3) Salicylates < 2.50 (<30) mg/dL Urine Opiates Screen (None Detect) Acetaminophen < 15 mcg/mL Ur Barbiturates Screen (None Detect) Ur Phencyclidine Scrn (None Detect) Ur Amphetamines Screen (None Detect) U Benzodiazepines Scrn (None Detect) Urine Cocaine Screen (None Detect) U Cannabinoids Screen (None Detect) Serum Alcohol < 10 (<10) mg/dL 12/30/17 12/30/17 12/30/17 Range/Units 15:55 15:55 16:51 WBC (3.5-10.8) 10^3/ul RBC (4.0-5.4) 10^6/ul Hgb (14.0-18.0) g/dl Hct (42-52) % MCV (80-94) fL MCH (27-31) pg MCHC (31-36) g/dl RDW (10.5-15) % Plt Count (150-450) 10^3/ul MPV (7.4-10.4) um3 Neut % (Auto) (38-83) % Lymph % (Auto) (25-47) % Caroline % (Auto) (0-7) % Eos % (Auto) (0-6) % Baso % (Auto) (0-2) % Absolute Neuts (auto) (1.5-7.7) 10^3/ul Absolute Lymphs (auto) (1.0-4.8) 10^3/ul Absolute Monos (auto) (0-0.8) 10^3/ul Absolute Eos (auto) (0-0.6) 10^3/ul Absolute Basos (auto) (0-0.2) 10^3/ul Absolute Nucleated RBC 10^3/ul Nucleated RBC % INR (Anticoag Therapy) (0.77-1.02) APTT (26.0-36.3) seconds D-Dimer, Quantitative (Less Than 230) ng/mL VBG pH 7.32 L (7.33-7.43) VBG pCO2 41 (41-51) mmHg VBG pO2 36 (35-45) mmHg VBG HCO3 20.2 L (24-28) mmol/L VBG O2 Saturation 73.7 (70-80) % VBG Base Excess -4.8 L (0-4) Sodium (133-145) mmol/L Potassium (3.5-5.0) mmol/L Chloride (101-111) mmol/L Carbon Dioxide (22-32) mmol/L Anion Gap (2-11) mmol/L BUN (6-24) mg/dL Creatinine (0.67-1.17) mg/dL Est GFR ( Amer) (>60) Est GFR (Non-Af Amer) (>60) BUN/Creatinine Ratio (8-20) Glucose (70-100) mg/dL Lactic Acid 2.0 (0.5-2.0) mmol/L Calcium (8.6-10.3) mg/dL Magnesium (1.9-2.7) mg/dL Total Bilirubin (0.2-1.0) mg/dL AST (13-39) U/L ALT (7-52) U/L Alkaline Phosphatase (34-104) U/L Total Creatine Kinase (10-223) U/L CK-MB (CK-2) (0.6-6.3) ng/mL Troponin I (<0.04) ng/mL Total Protein (6.4-8.9) g/dL Albumin (3.2-5.2) g/dL Globulin (2-4) g/dL Albumin/Globulin Ratio (1-3) Salicylates (<30) mg/dL Urine Opiates Screen None detected (None Detect) Acetaminophen mcg/mL Ur Barbiturates Screen None detected (None Detect) Ur Phencyclidine Scrn None detected (None Detect) Ur Amphetamines Screen None detected (None Detect) U Benzodiazepines Scrn None detected (None Detect) Urine Cocaine Screen Presumptive positive A (None Detect) U Cannabinoids Screen None detected (None Detect) Serum Alcohol (<10) mg/dL 12/30/17 Range/Units 18:15 WBC (3.5-10.8) 10^3/ul RBC (4.0-5.4) 10^6/ul Hgb (14.0-18.0) g/dl Hct (42-52) % MCV (80-94) fL MCH (27-31) pg MCHC (31-36) g/dl RDW (10.5-15) % Plt Count (150-450) 10^3/ul MPV (7.4-10.4) um3 Neut % (Auto) (38-83) % Lymph % (Auto) (25-47) % Caroline % (Auto) (0-7) % Eos % (Auto) (0-6) % Baso % (Auto) (0-2) % Absolute Neuts (auto) (1.5-7.7) 10^3/ul Absolute Lymphs (auto) (1.0-4.8) 10^3/ul Absolute Monos (auto) (0-0.8) 10^3/ul Absolute Eos (auto) (0-0.6) 10^3/ul Absolute Basos (auto) (0-0.2) 10^3/ul Absolute Nucleated RBC 10^3/ul Nucleated RBC % INR (Anticoag Therapy) (0.77-1.02) APTT (26.0-36.3) seconds D-Dimer, Quantitative (Less Than 230) ng/mL VBG pH (7.33-7.43) VBG pCO2 (41-51) mmHg VBG pO2 (35-45) mmHg VBG HCO3 (24-28) mmol/L VBG O2 Saturation (70-80) % VBG Base Excess (0-4) Sodium (133-145) mmol/L Potassium (3.5-5.0) mmol/L Chloride (101-111) mmol/L Carbon Dioxide (22-32) mmol/L Anion Gap (2-11) mmol/L BUN (6-24) mg/dL Creatinine (0.67-1.17) mg/dL Est GFR ( Amer) (>60) Est GFR (Non-Af Amer) (>60) BUN/Creatinine Ratio (8-20) Glucose (70-100) mg/dL Lactic Acid (0.5-2.0) mmol/L Calcium (8.6-10.3) mg/dL Magnesium (1.9-2.7) mg/dL Total Bilirubin (0.2-1.0) mg/dL AST (13-39) U/L ALT (7-52) U/L Alkaline Phosphatase (34-104) U/L Total Creatine Kinase (10-223) U/L CK-MB (CK-2) (0.6-6.3) ng/mL Troponin I 0.04 H* (<0.04) ng/mL Total Protein (6.4-8.9) g/dL Albumin (3.2-5.2) g/dL Globulin (2-4) g/dL Albumin/Globulin Ratio (1-3) Salicylates (<30) mg/dL Urine Opiates Screen (None Detect) Acetaminophen mcg/mL Ur Barbiturates Screen (None Detect) Ur Phencyclidine Scrn (None Detect) Ur Amphetamines Screen (None Detect) U Benzodiazepines Scrn (None Detect) Urine Cocaine Screen (None Detect) U Cannabinoids Screen (None Detect) Serum Alcohol (<10) mg/dL Assess/Plan/Problems-Billing Assessment: 62 yo M with h/o obesity, COPD, HTN , Parkinson's,presents after developing abd pain with bloody diarrhea and taking cocaine for it at home - Patient Problems (1) Abdominal pain Comment: CT shows no marked abnormalities, but clinically pt probably has colitis or diverticulitis. Will start Ceftriaxone/Azithro. Cx stool Stool heme +-looked loose brown with streaks of bright red blood in it Suspect the GI bleed is lower and due to colitis -will d/c Protonix gtt and start omeprazole BID cont clears for diet GI consulted (2) COPD (chronic obstructive pulmonary disease) Comment: not in exacerbation cont spiriva, xopenex nebs prn (3) Atrial fibrillation with rapid ventricular response Comment: Unknown duration, precipitated by cocaine? Pt is asymptomatic. Cardiology consult appreciated. started on Cardizem PO and given a dose of Digoxin No anticoagulation due to heme+stool Echo pending, TSH pending (4) Elevated troponin Comment: flat at 0.04 indeterminate troponin Suspect demand ischemia (5) CAD (coronary artery disease) Comment: Aspirin allergy Continue home statin. (6) Diabetes mellitus Comment: Controlled. Continue Lantus. FSBG with Lispro SSI Hold home metformin. (7) Parkinson disease Comment: Continue home carbidopa/levadopa. (8) DVT prophylaxis Comment: no anticoagulation due to GI bleed, SCD's Status and Disposition: inpatient
[2017-12-31] MEDS ORDERED: Levalbuterol 1.25MG/0.5ML NEB INH PRN (14:06)
[2017-12-31] MEDS: Omeprazole CAP* 20 MG PO SCH (16:10)
--- NOTE | 2017-12-31 17:59 | CONS ---
CC: [facility] Medicine CARDIOLOGY CONSULTATION: DATE OF CONSULT: 12/31/17 REASON FOR CARDIOLOGY CONSULTATION: Rapid atrial flutter. HISTORY OF PRESENT ILLNESS: Mr. Lagunas is quite somnolent at this time and notes significant abdominal pain. Per the patient as well as review of medical records, it seems that he has been having left-sided abdominal pain for 3 weeks , which he tried to treat with cocaine approximately 36 hours ago. After use of 2 lines of cocaine, he apparently noted some chest discomfort and shortness of breath and presented to the emergency room. Here he has been found have a rapid atrial tachycardia most consistent with atrial flutter after review. The patient himself denies palpitations. His heart rate is now better controlled with p.o. Cardizem and digoxin. The patient is quite vague at this time about chest discomfort, which he states comes and goes, but his main issue appears to be abdominal pain. The patient is reported to have blood in his stools on this admission, which is heme positive. PAST MEDICAL HISTORY: Reported to include: 1. CAD. 2. TIA. 3. COPD. 4. Diabetes with neuropathy. 5. Hypertension. 6. Hyperlipidemia. 7. Parkinsonism. 8. Chronic low back pain. 9. GERD. 10. Tobacco use disorder. OUTPATIENT MEDICATIONS: Include: 1. Sinemet. 2. Spiriva. 3. Flexeril. 4. Seroquel. 5. Cymbalta. 6. Lisinopril 10 mg once a day. 7. Pravastatin 10 mg once a day. 8. Metformin 1 g p.o. b.i.d. 9. Omeprazole 20 mg once a day. 10. Diclofenac gel p.r.n. 11. Naprosyn 220 mg p.o. q.8 hours. 12. Nicotine patch. ALLERGIES: Reported to be ASPIRIN, which causes him GI upset; environmental allergies caused him rash and itching; and WOOL allergy causes him a runny nose. FAMILY HISTORY: Unable to obtain due to the patient's somnolent condition at this time. SOCIAL HISTORY: The patient apparently smokes cigarettes. He is and lives alone. Again, he has used cocaine appropriately 36 hours ago, although he is vague about that and that was his first usage. He occasionally uses marijuana and reports he does not drink alcohol. Other social history unable to obtain due to the patient's somnolent condition at this time. REVIEW OF SYSTEMS: Unable to obtain due to the patient's somnolent condition at this time. PHYSICAL EXAM: Vital Signs: Height 5 feet 8 inches, weighs 314 pounds. Temperature is 98.3 degrees Fahrenheit, blood pressure 131/70, pulse is ranging from 120 to 140, O2 saturation 95%. General: He is somnolent, but does arouse to my voice. He does note abdominal discomfort as the main concern. He does appear pale. HEENT: Shows the cranium is normocephalic and atraumatic. He has dry mucosal membranes. Neck veins are not distended on limited assessment. There are no carotid bruits. Visible skin warm and perfused. Unable to assess mini-mental status. No significant kyphoscoliosis on recumbent back exam. Lungs are clear to auscultation anteriorly. No wheezes. No rales. Cardiac Exam: S1 and S2. Irregular rate, tachycardic. No significant murmurs, rubs, or gallops. PMI is nondisplaced. Abdomen: Obese. Exam is nondiagnostic as the patient's mental status precludes accurate assessment. Extremities: Trivial to 1+ peripheral edema. Pulses appear grossly intact. DIAGNOSTIC STUDIES/LAB DATA: The patient completed transthoracic echocardiogram on 03/26/17, which showed hyperdynamic left ventricular ejection fraction with EF greater than 65% with moderate concentric left ventricular hypertrophy, normal cardiac chamber sizes, functioning benign heart valves. He completed 12-lead EKG on 12/31/17 at 7:10 a.m., which shows SVT likely atrial flutter, although difficult to exclude atrial tachycardia. White blood cell count on admission was 19.4, now 13.8; hematocrit 44 and was 52; and platelet count 210. INR is 0.92. D-dimer less than 200. Sodium 133, potassium 3.9, chloride 102, bicarbonate 21, BUN 19, creatinine 1.06, troponin is 0.04 x4. IMPRESSION: Mr. Lagunas is a 62-year-old gentleman with complex medical history including reported coronary artery disease; however, hyperdynamic left ventricular ejection fraction noted previously, who has had left-sided abdominal pain for 3 weeks and in an effort to self treat that, he utilized cocaine approximately 36 hours ago. He has asymptomatic rapid atrial flutter with heart rate better controlled with p.o. Cardizem now as well as digoxin. There is concern for systemic inflammatory response syndrome as well as gastrointestinal bleed. I have reviewed this in detail with the patient as well as with his hospitalist medicine physician, Dr. Rico and I am making the following recommendations. PLAN/RECOMMENDATIONS: 1. For now, would continue heart rate control with Cardizem and digoxin and feel that cardioversion is contraindicated as anticoagulation is contraindicated given his concern for GI bleed. His heart rate is better controlled now from prior which is likely related to the p.o. Cardizem and p.o. digoxin use as well as he is time-brian further away from the toxic effect of cocaine ingestion approximately 36 hours ago. 2. Further management as per the hospitalist medicine service including regarding his abdominal pain, somnolence, GI bleed in the patient who takes NSAIDs and is reported to have GERD. Dear Dr. Rico, many thanks for this kind cardiac consultation opportunity. I look forward to following the patient with you. Please do not hesitate to contact me if you have any questions or concerns regarding the patient's cardiovascular consultative care. [id number]/[facility] #: [id number] MTDMatt
[2017-12-31] MEDS: Acetaminophen TAB* 325 MG PO PRN (20:52)
[2017-12-31] MEDS: Nicotine Patch Removal NOTE PATCH OFF SCH (20:55)
[2017-12-31] MEDS ORDERED: Insulin GLARGINE(*) 1 UNITS UNIT SUBCUT SCH (21:00)
[2017-12-31] MEDS ORDERED: Gabapentin CAP(*) 300 MG PO SCH (21:00)
[2017-12-31] MEDS ORDERED: QUEtiapine XR TAB* 50 MG PO SCH (21:00)
[2017-12-31] MEDS: Cyclobenzaprine TAB* 10 MG PO PRN (22:06)
--- NOTE | 2017-12-31 22:17 | CONS ---
CC: Dr. Damian* PROCEDURE CONSULTATION REPORT: DATE OF CONSULT: 12/31/17 REQUESTING PHYSICIAN: Dr. Shi. INDICATION: Bloody stool. NARRATIVE: This is a 62-year-old gentleman who is super morbidly obese who has a history of coronary artery disease, TIA, diabetes, hypertension, COPD, Parkinson's, hyperlipidemia, GERD, who came in with chest pain after snorting cocaine. The patient states that he has been having chronic left-sided abdominal pain for the past 3 weeks. He decided to snort cocaine to see if it would help. In the emergency room, he had a dark bloody bowel movement. The patient denies having any blood before and he denies any blood in his vomitus. He does vomit occasionally. He does take nonsteroidals every single day. He uses ibuprofen, this is for generalized body pain. He denies any fevers or chills at home. No sick contacts. PAST SURGICAL HISTORY: Includes appendectomy. MEDICATIONS: Include: 1. Sinemet. 2. Flexeril. 3. Spiriva. 4. Seroquel. 5. Cymbalta. 6. [place]. 7. HydroDIURIL. 8. Prinivil. 9. Pravachol. 10. Benadryl. 11. Glucophage. 12. Neurontin. 13. Prilosec. 14. Voltaren. 15. Zyrtec. 16. Lantus. 17. Nasonex. 18. Aleve. 19. Nicotine patch. ALLERGIES: He is allergic to ASPIRIN and WOOL. SOCIAL HISTORY: He continues to smoke. He denies alcohol. He uses marijuana. He uses cocaine. FAMILY HISTORY: Significant for coronary artery disease. REVIEW OF SYSTEMS: Twelve systems were reviewed, other than that mentioned in the HPI were unremarkable. PHYSICAL EXAM: Temperature is 98.3, blood pressure is 131/70, pulse is 140. General: Chronically ill-appearing male, sleeping, alert, oriented, easily awoken, pleasant, fluent. HEENT: Mucous membranes are moist. Dentition is poor. Neck is supple. Trachea is midline. Heart: Regular rate and rhythm, tachy. Lungs: Clear to auscultation. Abdomen: Super morbidly obese. Positive bowel sounds. Soft. Left-sided tenderness. No rebound. No guarding. Skin is warm and dry. Multiple tattoos. LABORATORY DATA/DIAGNOSTIC STUDIES: Labs of note, white count of 13.8, hemoglobin went from 17 to 14.7 and 14.5, platelets of 210. BUN is normal at 19. Troponin is elevated at 0.[address] shows diverticulosis. ASSESSMENT AND PLAN: This is a 62-year-old male with bloody dark diarrhea and abdominal pain. His hemoglobin and BUN are both within normal limits. I do wonder if he could have diverticular bleed versus potentially an infectious colitis. Currently, he is stable. Again, his vital signs are stable. His hemoglobin is stable. His BUN is normal. He does have recent cocaine use. I would recommend he avoid nonsteroidals. He should continue with his PPI. I would recommend stool studies also. [id number]/[facility] #: [id number] CHARLIE
[2018-01-01] MEDS: Insulin LISPRO* 1 UNITS UNIT SUBCUT SCH ×7 (01:11→23:46)
[2018-01-01] MEDS: NS 0.9% 1000 ML* 1,000 ML IV SCH (01:24)
[2018-01-01] MEDS: Piperacillin/Tazobac ADVAN(*) 3.375 GM in NS 0.9% 100 ML* 100 ML IVPB SCH ×2 (01:30→08:59)
[2018-01-01] MEDS: Diltiazem TAB* 60 MG PO SCH ×5 (01:31→23:46)
[2018-01-01] MEDS: metroNIDAZOLE IV 500 MG/100ML* 500 MG/100 ML BAG IVPB SCH ×4 (04:16→23:46)
[2018-01-01 06:12] LABS: ABS Basophils 0.1 10^3/ul (0-0.2); ABS Eosinophils 0.2 10^3/ul (0-0.6); ABS Lymphocytes 2.7 10^3/ul (1.0-4.8); ABS Monocytes 0.8 10^3/ul (0-0.8); ABS Neutrophils 6.7 10^3/ul (1.5-7.7); ABS Nucleated RBC 0 10^3/ul; Hematocrit 46 % (42-52); Lymphocyte % 25.4 % (25-47); Mean Corpuscular HGB Conc 33 g/dl (31-36); Mean Corpuscular Hemoglobin 30 pg (27-31); Mean Corpuscular Volume 92 fL (80-94); Mean Platelet Volume 8 um3 (7.4-10.4); Nucleated Red Blood Cells % 0; Platelet Count 173 10^3/ul (150-450); Red Blood Count 5.04 10^6/ul (4.0-5.4); Red Cell Distribution Width 16 % (10.5-15); White Blood Count 10.5 10^3/ul (3.5-10.8)
[2018-01-01 06:27] LABS: EGFR Non-African American 81.6 (>60)
[2018-01-01] MEDS: Tiotropium CAP.INH* CAP.INH/18 MCG (USE ORDER SET !) INH SCH (07:31)
[2018-01-01] MEDS: Docusate CAP* 100 MG PO SCH ×2 (08:49→21:12)
[2018-01-01] MEDS: Pravastatin (NF) 10 MG TAB PO SCH (08:50)
[2018-01-01] MEDS ORDERED: NS 0.9% 100 ML* 100 ML ONE (08:51)
[2018-01-01] MEDS: Omeprazole CAP* 20 MG PO SCH ×2 (09:03→17:03)
[2018-01-01] MEDS: Carbidopa/Levodop 25/250MG TAB(*) PO SCH (09:03)
[2018-01-01] MEDS: Gabapentin CAP(*) 300 MG PO SCH ×2 (09:03→21:11)
[2018-01-01] MEDS: DULoxetine DR CAP* 30 MG CAP.DR PO SCH (09:03)
[2018-01-01] MEDS: Famotidine TAB* 20 MG PO SCH ×2 (09:03→21:11)
[2018-01-01] MEDS: Carbidopa/Levodop 10/100 MG TAB(*) PO SCH ×2 (09:04→21:11)
[2018-01-01] MEDS: Nicotine PATCH 21 MG/24 HR* PATCH TRANSDERM SCH (09:05)
[2018-01-01] MEDS ORDERED: QUEtiapine XR TAB* 50 MG PO SCH (10:45)
--- NOTE | 2018-01-01 10:52 | PN ---
Subjective Date of Service: 01/01/18 Interval History: Some diarrhea, mild L abd pain. Patient feels too weak to go home. Objective Active Medications: Acetaminophen (Tylenol Tab*) 650 mg PO Q6H PRN PRN Reason: FEVER/PAIN Last Admin: 12/31/17 20:52 Dose: 650 mg Albuterol (Ventolin 2.5 Mg/3 Ml Neb.Miriam*) 2.5 mg INH Q2H PRN PRN Reason: SOB/WHEEZING Carbidopa/Levodopa (Sinemet 10/100 Tab(*)) 1 tab PO BID [facility] Last Admin: 01/01/18 09:04 Dose: 1 tab Carbidopa/Levodopa (Sinemet 25/250 Tab(*)) 1 tab PO DAILY [facility] Last Admin: 01/01/18 09:03 Dose: 1 tab Cyclobenzaprine HCl (Flexeril Tab*) 10 mg PO TID PRN PRN Reason: muscle spasms Last Admin: 12/31/17 22:06 Dose: 10 mg Diltiazem HCl (Cardizem Tab*) 60 mg PO Q6HR [facility] Last Admin: 01/01/18 08:42 Dose: Not Given Docusate Sodium (Colace Cap*) 200 mg PO BID [facility] Last Admin: 01/01/18 08:49 Dose: Not Given Duloxetine HCl (Cymbalta Cap*) 30 mg PO DAILY [facility] Last Admin: 01/01/18 09:03 Dose: 30 mg Famotidine (Pepcid Tab*) 40 mg PO BID [facility] Last Admin: 01/01/18 09:03 Dose: 40 mg Gabapentin (Neurontin Cap(*)) 300 mg PO BID [facility] Last Admin: 01/01/18 09:03 Dose: 300 mg Piperacillin Sod/Tazobactam (Sod 3.375 gm/ Sodium Chloride) 100 mls @ 25 mls/ hr IVPB Q8H [facility] Last Admin: 01/01/18 08:59 Dose: 25 mls/hr Metronidazole/Sodium Chloride (Flagyl 500 Mg Ivpb*) 500 mg in 100 mls @ 100 mls /hr IVPB Q8H [facility] Last Admin: 01/01/18 04:16 Dose: 100 mls/hr Ceftriaxone Sodium 1 gm/ (Sodium Chloride) 50 mls @ 200 mls/hr IVPB Q24H [facility] Last Admin: 12/31/17 12:19 Dose: 200 mls/hr Insulin Glargine (Lantus(*)) 34 units 0.24 units/kg (34 units) SUBCUT 2099 [facility] Stop: 01/01/18 20:00 Last Admin: 12/31/17 20:53 Dose: 34 units Insulin Human Lispro (Humalog*) 0 units SUBCUT Q4H DESIREE PRN Reason: Protocol Last Admin: 01/01/18 08:58 Dose: 6 units Levalbuterol HCl (Xopenex 1.25 Mg/0.5 Ml Neb.Miriam*) 1.25 mg INH Q4H PRN PRN Reason: WHEEZING Nicotine (Nicotine Patch 21 Mg/24 Hr*) 1 patch TRANSDERM DAILY [facility] Last Admin: 01/01/18 09:05 Dose: 1 patch Omeprazole (Prilosec Cap*) 20 mg PO BID [facility] Last Admin: 01/01/18 09:03 Dose: 20 mg Ondansetron HCl (Zofran Inj*) 4 mg IV Q6H PRN PRN Reason: NAUSEA Pharmacy Profile Note (Nicotine Patch Removal Note*) 1 note PATCH OFF 2099 [facility] Last Admin: 12/31/17 20:55 Dose: 1 note Pravastatin Sodium (Pravachol (Nf)) 10 mg PO DAILY [facility] Last Admin: 01/01/18 08:50 Dose: Not Given Quetiapine Fumarate (Seroquel Xr Tab*) 25 mg PO BEDTIME [facility] Tiotropium Freedom (Spiriva Cap.Inh*) 1 cap INH DAILY [facility] Last Admin: 01/01/18 07:31 Dose: 1 cap Vital Signs - 8 hr 01/01/18 01/01/18 01/01/18 04:40 04:46 05:13 Temperature 98.3 F Pulse Rate 66 75 Respiratory 18 18 Rate Blood Pressure 74/47 101/57 (mmHg) O2 Sat by Pulse 95 Oximetry 01/01/18 01/01/18 01/01/18 07:37 08:00 09:03 Temperature 98.6 F Pulse Rate 108 Respiratory 20 20 18 Rate Blood Pressure 104/65 (mmHg) O2 Sat by Pulse 91 Oximetry Oxygen Devices in Use Now: None Appearance: Alert, on his side in bed. In fair spirits. Looks comfortable. Eyes: No Scleral Icterus Neck: NL Appearance and Movements; NL JVP, No Thyroid Enlargement, Masses Respiratory: Symmetrical Chest Expansion and Respiratory Effort, Clear to Auscultation, Clear to Percussion Cardiovascular: NL Sounds; No Murmurs; No JVD, RRR, No Edema, - Abdominal: NL Sounds; No Tenderness; No Distention, No Hepatosplenomegaly, - Extremities: No Edema, No Clubbing, Cyanosis, - Skin: No Rash or Ulcers, No Nodules or Sclerosis, - Neurological: Alert and Oriented x 3, NL Sensation Result Diagrams: 01/01/18 06:02 01/01/18 06:02 Additional Lab and Data: Lab Results 12/30/17 12/30/17 12/30/17 Range/Units 15:55 15:55 15:55 WBC 19.4 H (3.5-10.8) 10^3/ul RBC 5.72 H (4.0-5.4) 10^6/ul Hgb 17.0 (14.0-18.0) g/dl Hct 52 (42-52) % MCV 91 (80-94) fL MCH 30 (27-31) pg MCHC 33 (31-36) g/dl RDW 15 (10.5-15) % Plt Count 246 (150-450) 10^3/ul MPV 9 (7.4-10.4) um3 Neut % (Auto) 86.3 H (38-83) % Lymph % (Auto) 5.9 L (25-47) % Mclean % (Auto) 7.3 H (0-7) % Eos % (Auto) 0.1 (0-6) % Baso % (Auto) 0.4 (0-2) % Absolute Neuts (auto) 16.8 H (1.5-7.7) 10^3/ul Absolute Lymphs (auto) 1.1 (1.0-4.8) 10^3/ul Absolute Monos (auto) 1.4 H (0-0.8) 10^3/ul Absolute Eos (auto) 0 (0-0.6) 10^3/ul Absolute Basos (auto) 0.1 (0-0.2) 10^3/ul Absolute Nucleated RBC 0 10^3/ul Nucleated RBC % 0 INR (Anticoag Therapy) 0.92 (0.77-1.02) APTT 26.7 (26.0-36.3) seconds D-Dimer, Quantitative < 200 (Less Than 230) ng/mL VBG pH (7.33-7.43) VBG pCO2 (41-51) mmHg VBG pO2 (35-45) mmHg VBG HCO3 (24-28) mmol/L VBG O2 Saturation (70-80) % VBG Base Excess (0-4) Sodium 132 L (133-145) mmol/L Potassium 4.2 (3.5-5.0) mmol/L Chloride 94 L (101-111) mmol/L Carbon Dioxide 20 L (22-32) mmol/L Anion Gap 18 H (2-11) mmol/L BUN 26 H (6-24) mg/dL Creatinine 1.58 H (0.67-1.17) mg/dL Est GFR ( Amer) 57.6 (>60) Est GFR (Non-Af Amer) 44.8 (>60) BUN/Creatinine Ratio 16.5 (8-20) Glucose 460 H (70-100) mg/dL Lactic Acid (0.5-2.0) mmol/L Calcium 9.7 (8.6-10.3) mg/dL Magnesium 1.8 L (1.9-2.7) mg/dL Total Bilirubin 0.60 (0.2-1.0) mg/dL AST 15 (13-39) U/L ALT 7 (7-52) U/L Alkaline Phosphatase 70 (34-104) U/L Total Creatine Kinase 56 (10-223) U/L CK-MB (CK-2) 5.0 (0.6-6.3) ng/mL Troponin I 0.04 H* (<0.04) ng/mL Total Protein 6.9 (6.4-8.9) g/dL Albumin 4.0 (3.2-5.2) g/dL Globulin 2.9 (2-4) g/dL Albumin/Globulin Ratio 1.4 (1-3) Salicylates < 2.50 (<30) mg/dL Urine Opiates Screen (None Detect) Acetaminophen < 15 mcg/mL Ur Barbiturates Screen (None Detect) Ur Phencyclidine Scrn (None Detect) Ur Amphetamines Screen (None Detect) U Benzodiazepines Scrn (None Detect) Urine Cocaine Screen (None Detect) U Cannabinoids Screen (None Detect) Serum Alcohol < 10 (<10) mg/dL 12/30/17 12/30/17 12/30/17 Range/Units 15:55 15:55 16:51 WBC (3.5-10.8) 10^3/ul RBC (4.0-5.4) 10^6/ul Hgb (14.0-18.0) g/dl Hct (42-52) % MCV (80-94) fL MCH (27-31) pg MCHC (31-36) g/dl RDW (10.5-15) % Plt Count (150-450) 10^3/ul MPV (7.4-10.4) um3 Neut % (Auto) (38-83) % Lymph % (Auto) (25-47) % Mclean % (Auto) (0-7) % Eos % (Auto) (0-6) % Baso % (Auto) (0-2) % Absolute Neuts (auto) (1.5-7.7) 10^3/ul Absolute Lymphs (auto) (1.0-4.8) 10^3/ul Absolute Monos (auto) (0-0.8) 10^3/ul Absolute Eos (auto) (0-0.6) 10^3/ul Absolute Basos (auto) (0-0.2) 10^3/ul Absolute Nucleated RBC 10^3/ul Nucleated RBC % INR (Anticoag Therapy) (0.77-1.02) APTT (26.0-36.3) seconds D-Dimer, Quantitative (Less Than 230) ng/mL VBG pH 7.32 L (7.33-7.43) VBG pCO2 41 (41-51) mmHg VBG pO2 36 (35-45) mmHg VBG HCO3 20.2 L (24-28) mmol/L VBG O2 Saturation 73.7 (70-80) % VBG Base Excess -4.8 L (0-4) Sodium (133-145) mmol/L Potassium (3.5-5.0) mmol/L Chloride (101-111) mmol/L Carbon Dioxide (22-32) mmol/L Anion Gap (2-11) mmol/L BUN (6-24) mg/dL Creatinine (0.67-1.17) mg/dL Est GFR ( Amer) (>60) Est GFR (Non-Af Amer) (>60) BUN/Creatinine Ratio (8-20) Glucose (70-100) mg/dL Lactic Acid 2.0 (0.5-2.0) mmol/L Calcium (8.6-10.3) mg/dL Magnesium (1.9-2.7) mg/dL Total Bilirubin (0.2-1.0) mg/dL AST (13-39) U/L ALT (7-52) U/L Alkaline Phosphatase (34-104) U/L Total Creatine Kinase (10-223) U/L CK-MB (CK-2) (0.6-6.3) ng/mL Troponin I (<0.04) ng/mL Total Protein (6.4-8.9) g/dL Albumin (3.2-5.2) g/dL Globulin (2-4) g/dL Albumin/Globulin Ratio (1-3) Salicylates (<30) mg/dL Urine Opiates Screen None detected (None Detect) Acetaminophen mcg/mL Ur Barbiturates Screen None detected (None Detect) Ur Phencyclidine Scrn None detected (None Detect) Ur Amphetamines Screen None detected (None Detect) U Benzodiazepines Scrn None detected (None Detect) Urine Cocaine Screen Presumptive positive A (None Detect) U Cannabinoids Screen None detected (None Detect) Serum Alcohol (<10) mg/dL 12/30/17 Range/Units 18:15 WBC (3.5-10.8) 10^3/ul RBC (4.0-5.4) 10^6/ul Hgb (14.0-18.0) g/dl Hct (42-52) % MCV (80-94) fL MCH (27-31) pg MCHC (31-36) g/dl RDW (10.5-15) % Plt Count (150-450) 10^3/ul MPV (7.4-10.4) um3 Neut % (Auto) (38-83) % Lymph % (Auto) (25-47) % Mclean % (Auto) (0-7) % Eos % (Auto) (0-6) % Baso % (Auto) (0-2) % Absolute Neuts (auto) (1.5-7.7) 10^3/ul Absolute Lymphs (auto) (1.0-4.8) 10^3/ul Absolute Monos (auto) (0-0.8) 10^3/ul Absolute Eos (auto) (0-0.6) 10^3/ul Absolute Basos (auto) (0-0.2) 10^3/ul Absolute Nucleated RBC 10^3/ul Nucleated RBC % INR (Anticoag Therapy) (0.77-1.02) APTT (26.0-36.3) seconds D-Dimer, Quantitative (Less Than 230) ng/mL VBG pH (7.33-7.43) VBG pCO2 (41-51) mmHg VBG pO2 (35-45) mmHg VBG HCO3 (24-28) mmol/L VBG O2 Saturation (70-80) % VBG Base Excess (0-4) Sodium (133-145) mmol/L Potassium (3.5-5.0) mmol/L Chloride (101-111) mmol/L Carbon Dioxide (22-32) mmol/L Anion Gap (2-11) mmol/L BUN (6-24) mg/dL Creatinine (0.67-1.17) mg/dL Est GFR ( Amer) (>60) Est GFR (Non-Af Amer) (>60) BUN/Creatinine Ratio (8-20) Glucose (70-100) mg/dL Lactic Acid (0.5-2.0) mmol/L Calcium (8.6-10.3) mg/dL Magnesium (1.9-2.7) mg/dL Total Bilirubin (0.2-1.0) mg/dL AST (13-39) U/L ALT (7-52) U/L Alkaline Phosphatase (34-104) U/L Total Creatine Kinase (10-223) U/L CK-MB (CK-2) (0.6-6.3) ng/mL Troponin I 0.04 H* (<0.04) ng/mL Total Protein (6.4-8.9) g/dL Albumin (3.2-5.2) g/dL Globulin (2-4) g/dL Albumin/Globulin Ratio (1-3) Salicylates (<30) mg/dL Urine Opiates Screen (None Detect) Acetaminophen mcg/mL Ur Barbiturates Screen (None Detect) Ur Phencyclidine Scrn (None Detect) Ur Amphetamines Screen (None Detect) U Benzodiazepines Scrn (None Detect) Urine Cocaine Screen (None Detect) U Cannabinoids Screen (None Detect) Serum Alcohol (<10) mg/dL Microbiology and Other Data: Microbiology 12/31/17 13:25 Influenza Types A,B Antigen (MUNIRA) - Final Nasal Specimen received for Influenza A/B Molecular testing Assess/Plan/Problems-Billing Assessment: 62 yo M with h/o obesity, COPD, HTN , Parkinson's,presents after developing abd pain with bloody diarrhea and taking cocaine for it at home - Patient Problems (1) Atrial fibrillation with rapid ventricular response Current Visit: Yes Status: Acute Code(s): I48.91 - UNSPECIFIED ATRIAL FIBRILLATION SNOMED Code(s): 991976567936933 Comment: Unknown duration, precipitated by cocaine? Pt is asymptomatic. Cardiology consult appreciated. started on Cardizem PO and given a dose of Digoxin. Switch to diltiazem CD on 01/02. No anticoagulation due to heme+stool Echo pending, TSH 0.85 12/31/17. (2) Abdominal pain Current Visit: Yes Status: Acute Code(s): R10.9 - UNSPECIFIED ABDOMINAL PAIN SNOMED Code(s): 02604587 Comment: CT shows no marked abnormalities, but clinically pt possibly has colitis or diverticulitis. Change to po amox/clav 01/01/18 PM. Cx stool Stool heme +-looked loose brown with streaks of bright red blood in it Suspect the GI bleed is lower and due to colitis -will d/c Protonix gtt and start omeprazole BID Advance to low fiber diet. GI consult appreciated. (3) Diabetes mellitus Current Visit: No Status: Chronic Code(s): E11.9 - TYPE 2 DIABETES MELLITUS WITHOUT COMPLICATIONS SNOMED Code(s): 15040391 Comment: Continue Lantus. FSBG with Lispro SSI Re-start metformin 01/03 assuming no further IV dye given or planned. (4) Morbid obesity Current Visit: Yes Status: Acute Code(s): E66.01 - MORBID (SEVERE) OBESITY DUE TO EXCESS CALORIES SNOMED Code(s): 054683154 Comment: BMI 47.8. Status and Disposition: inpatient
[2018-01-01] MEDS: Amoxicillin/Clavulanate TAB* 875 MG PO SCH (21:11)
[2018-01-01] MEDS: QUEtiapine TAB* 25 MG PO SCH (21:11)
[2018-01-01] MEDS: Nicotine Patch Removal NOTE PATCH OFF SCH (21:12)
[2018-01-01] MEDS: CMC: Pravastatin (NF) 20 MG TAB PO SCH (21:15)
[2018-01-01] MEDS: Cyclobenzaprine TAB* 10 MG PO PRN (22:33)
[2018-01-02] MEDS: Insulin LISPRO* 1 UNITS UNIT SUBCUT SCH ×5 (04:17→20:49)
[2018-01-02] MEDS: Tiotropium CAP.INH* CAP.INH/18 MCG (USE ORDER SET !) INH SCH (08:02)
[2018-01-02] MEDS ORDERED: Diltiazem CD CAP* 240 MG PO SCH (09:00)
[2018-01-02] MEDS ORDERED: Magnesium Oxide TAB* 400 MG PO SCH (09:00)
[2018-01-02] MEDS: metroNIDAZOLE IV 500 MG/100ML* 500 MG/100 ML BAG IVPB SCH ×3 (10:00→23:48)
[2018-01-02] MEDS: Carbidopa/Levodop 25/250MG TAB(*) PO SCH (10:01)
[2018-01-02] MEDS: Amoxicillin/Clavulanate TAB* 875 MG PO SCH ×2 (10:01→20:48)
[2018-01-02] MEDS: Gabapentin CAP(*) 300 MG PO SCH ×2 (10:01→20:48)
[2018-01-02] MEDS: CMC: Pravastatin (NF) 20 MG TAB PO SCH (10:02)
[2018-01-02] MEDS: Famotidine TAB* 20 MG PO SCH ×2 (10:03→20:48)
[2018-01-02] MEDS: Docusate CAP* 100 MG PO SCH ×2 (10:03→20:52)
[2018-01-02] MEDS: DULoxetine DR CAP* 30 MG CAP.DR PO SCH (10:04)
--- NOTE | 2018-01-02 10:05 | ECHO ---
Patient: RICHARD R[facility] Rec#: [id number] : 1955 Date: 01/02/2018 Age: 62y Height: 172.72 cm / 68.0 in Weight: 142.43 kg / 313.9 lbs Sex: M BSA: 2.48 Room#: 452 Admit Date#: 12/31/2017 Type: Inpatient Referring: Liliane Rico MD Reading: Joey Saucedo MD Cigar Head Pegger: Cristina Stallworth RDCS CC: Stanislav Damian MD Transthoracic Echocardiogram Indication: Chest pain, new a. flutter BP: 132/55 HR: 115 Rhythm: A-Flutter Findings History: Cocaine intoxication PERINATAL TECH, acute HTN, CAD, TIA, COPD, DM, MO, HLD, Parkinson's disease, GERD, smoker. Technical Comments: The study quality is poor. The study is technically limited due to patient body habitus. Completed at 0945. Left Ventricle: The left ventricular chamber size is normal. Moderate concentric left ventricular hypertrophy is observed. Global left ventricular wall motion and contractility are within normal limits. The left ventricle appears hyperdynamic. The estimated ejection fraction is greater than 65%. The assessment of diastolic function is non-diagnostic. Right Ventricle: The right ventricular cavity size is normal. The right ventricular global systolic function is normal. Right Atrium: The right atrial cavity size is normal. Aortic Valve: The aortic valve is trileaflet. The aortic valve leaflets are mildly thickened. There is no evidence of aortic regurgitation. There is no evidence of aortic stenosis. Mitral Valve: The mitral valve leaflets are mildly thickened. There is a trace of mitral regurgitation. Tricuspid Valve: The tricuspid valve structure is not well visualized. There is trace to mild tricuspid regurgitation. The right ventricular systolic pressure is estimated at 24 mmHg. There is evidence that pulmonary hypertension may be underestimated. Pulmonic Valve: The pulmonic valve structure is not well visualized. There is a trace pulmonic regurgitation. There is no pulmonic stenosis. Pericardium: There is no significant pericardial effusion. A pericardial fat pad is visualized. Aorta: There is mild dilatation of the ascending aorta. The aortic arch is not well visualized. The aortic root is normal in size. Pulmonary Artery: The main pulmonary artery is not well visualized. Venous: The inferior vena cava appears normal in size. There is a greater than 50% respiratory change in the inferior vena cava dimension. Conclusions The left ventricle appears hyperdynamic. The estimated ejection fraction is greater than 65%. Global left ventricular wall motion and contractility are within normal limits. The left ventricular chamber size is normal. Moderate concentric left ventricular hypertrophy is observed. Normal cardiac chamber sizes. Functionally benign heart valves. There is mild dilatation of the ascending aorta. Since the prior echocardiogram available to compare with 03/26/17, pertinent change is mildly dilated ascending aorta newly noted. Measurements Name Value Normal Range RVIDd (AP) 2D 2.8 cm (0.9 - 2.6) RVDdMajor (2D) 4 cm (2.2 - 4.4) RVAW (2D) 1.2 cm (0.2 - 0.5) RAd ISD 4CH 4.4 cm (3.4 - 4.9) RA (A4C)W 3.9 cm (2.9 - 4.6) IVSd (2D) 1.5 cm (0.6 - 1) LVPWd (2D) 1.6 cm (0.6 - 1) LVIDd (2D) 3.7 cm (3.6 - 5.4) LVIDs (2D) 3.3 cm - LV FS (2D) 11 % (25 - 45) Aortic Annulus 1.9 cm (1.4 - 2.6) Ao root diameter (2D) 3.4 cm (2.1 - 3.5) Ascending Ao 3.8 cm (2.1 - 3.4) LA dimension (AP) 2D 3.2 cm (2.3 - 3.8) LAd ISD 4CH 6.3 cm (2.9 - 5.3) LA ISD 4CH W 3.6 cm (2.5 - 4.5) Name Value Normal Range LA ESV SP 4CH (A/L) 36 ml - LA ESV SP 2CH (A/L) 54 ml - LA ESV BP (A/L) 45 ml - LA ESV BP (A/L) index 18 ml/m2 - LA ESV SP 4CH (MOD) 35 ml - LA ESV SP 2CH (MOD) 52 ml - Name Value Normal Range MV E-wave Vmax 0.97 m/sec - MV deceleration time 136.6 msec - MV A-wave Vmax 0.57 m/sec - MV E:A ratio 34.68 ratio - LV septal e' Vmax 0.1 m/sec - LV lateral e' Vmax 0.1 m/sec - LV E:e' septal ratio 9.7 ratio - LV E:e' lateral ratio 9.7 ratio - Name Value Normal Range AV Vmax 2.6 m/sec - AV VTI 41.49 cm - AV peak gradient 27.6 mmHg - AV mean gradient 13.5 mmHg - LVOT Vmax 1.7 m/sec - LVOT VTI 22.1 cm - LVOT peak gradient 11.39 mmHg - LVOT mean gradient 6.42 mmHg - ELDER Vmax 0.75 m/sec - Name Value Normal Range TR Vmax 2.3 m/sec - TR peak gradient 21 mmHg - RAP 3 mmHg - RVSP 24 mmHg - IVC diameter 1.9 cm - Name Value Normal Range PV Vmax 1.21 m/sec - PV peak gradient 5.92 mmHg -
[2018-01-02] MEDS: Nicotine PATCH 21 MG/24 HR* PATCH TRANSDERM SCH (10:06)
[2018-01-02] MEDS: Carbidopa/Levodop 10/100 MG TAB(*) PO SCH ×2 (10:06→20:48)
[2018-01-02] MEDS: Acetaminophen TAB* 325 MG PO PRN ×2 (10:19→16:32)
[2018-01-02] MEDS: Omeprazole CAP* 20 MG PO SCH ×2 (10:25→15:58)
--- NOTE | 2018-01-02 13:53 | PN ---
Subjective Date of Service: 01/02/18 Interval History: Patient c/o pain "in the abdominal area." He also states he has had about 8 BM' s today although the staff has recorded 4 so far today. Objective Active Medications: Acetaminophen (Tylenol Tab*) 650 mg PO Q6H PRN PRN Reason: FEVER/PAIN Last Admin: 01/02/18 10:19 Dose: 650 mg Albuterol (Ventolin 2.5 Mg/3 Ml Neb.Miriam*) 2.5 mg INH Q2H PRN PRN Reason: SOB/WHEEZING Amoxicillin/Clavulanate Potassium (Augmentin Tab*) 875 mg PO BID [facility] Stop: 01/07/18 12:30 Last Admin: 01/02/18 10:01 Dose: 875 mg Carbidopa/Levodopa (Sinemet 10/100 Tab(*)) 1 tab PO BID [facility] Last Admin: 01/02/18 10:06 Dose: 1 tab Carbidopa/Levodopa (Sinemet 25/250 Tab(*)) 1 tab PO DAILY [facility] Last Admin: 01/02/18 10:01 Dose: 1 tab Cyclobenzaprine HCl (Flexeril Tab*) 10 mg PO TID PRN PRN Reason: muscle spasms Last Admin: 01/01/18 22:33 Dose: 10 mg Diltiazem HCl (Cardizem Cd Cap*) 240 mg PO DAILY [facility] Last Admin: 01/02/18 10:02 Dose: 240 mg Docusate Sodium (Colace Cap*) 200 mg PO BID [facility] Last Admin: 01/02/18 10:03 Dose: 200 mg Duloxetine HCl (Cymbalta Cap*) 30 mg PO DAILY [facility] Last Admin: 01/02/18 10:04 Dose: 30 mg Famotidine (Pepcid Tab*) 40 mg PO BID [facility] Last Admin: 01/02/18 10:03 Dose: 40 mg Gabapentin (Neurontin Cap(*)) 300 mg PO BID [facility] Last Admin: 01/02/18 10:01 Dose: 300 mg Metronidazole/Sodium Chloride (Flagyl 500 Mg Ivpb*) 500 mg in 100 mls @ 100 mls /hr IVPB 0000,0800,1600 [facility] Last Admin: 01/02/18 10:00 Dose: 100 mls/hr Insulin Glargine (Lantus(*)) 18 units SUBCUT Q24H [facility] Insulin Human Lispro (Humalog*) 0 units SUBCUT ACHS [facility] PRN Reason: Protocol Levalbuterol HCl (Xopenex 1.25 Mg/0.5 Ml Neb.Miriam*) 1.25 mg INH Q4H PRN PRN Reason: WHEEZING Magnesium Oxide (Magox 400 Tab*) 400 mg PO BID [facility] Last Admin: 01/02/18 10:02 Dose: 400 mg Nicotine (Nicotine Patch 21 Mg/24 Hr*) 1 patch TRANSDERM DAILY [facility] Last Admin: 01/02/18 10:06 Dose: 1 patch Omeprazole (Prilosec Cap*) 20 mg PO BID [facility] Last Admin: 01/02/18 10:25 Dose: 20 mg Ondansetron HCl (Zofran Inj*) 4 mg IV Q6H PRN PRN Reason: NAUSEA Pharmacy Profile Note (Nicotine Patch Removal Note*) 1 note PATCH OFF 2100 [facility] Last Admin: 01/01/18 21:12 Dose: 1 note Pravastatin Sodium (Pravachol (Nf)) 10 mg PO DAILY [facility] Last Admin: 01/02/18 10:02 Dose: 10 mg Quetiapine Fumarate (Seroquel Tab*) 25 mg PO BEDTIME [facility] Last Admin: 01/01/18 21:11 Dose: 25 mg Tiotropium [place] (Spiriva Cap.Inh*) 1 cap INH DAILY [facility] Last Admin: 01/02/18 08:02 Dose: 1 cap Vital Signs - 8 hr 01/02/18 01/02/18 01/02/18 07:53 08:00 08:04 Temperature 98.0 F Pulse Rate 109 80 Respiratory 16 16 Rate Blood Pressure 115/65 (mmHg) O2 Sat by Pulse 97 Oximetry 01/02/18 01/02/18 01/02/18 10:01 11:55 12:58 Temperature 97.8 F Pulse Rate 116 Respiratory 18 16 16 Rate Blood Pressure 132/71 (mmHg) O2 Sat by Pulse 95 Oximetry Oxygen Devices in Use Now: None Appearance: Alert, lying on his side in bed. In fair spirits. Looks comfortable. Eyes: No Scleral Icterus Abdominal: NL Sounds; No Tenderness; No Distention, No Hepatosplenomegaly, - - massive pannus Extremities: No Edema, No Clubbing, Cyanosis, - Skin: No Rash or Ulcers, No Nodules or Sclerosis, - Neurological: Alert and Oriented x 3, NL Sensation Result Diagrams: 01/01/18 06:02 01/01/18 06:02 Additional Lab and Data: Lab Results 12/30/17 12/30/17 12/30/17 Range/Units 15:55 15:55 15:55 WBC 19.4 H (3.5-10.8) 10^3/ul RBC 5.72 H (4.0-5.4) 10^6/ul Hgb 17.0 (14.0-18.0) g/dl Hct 52 (42-52) % MCV 91 (80-94) fL MCH 30 (27-31) pg MCHC 33 (31-36) g/dl RDW 15 (10.5-15) % Plt Count 246 (150-450) 10^3/ul MPV 9 (7.4-10.4) um3 Neut % (Auto) 86.3 H (38-83) % Lymph % (Auto) 5.9 L (25-47) % [place] % (Auto) 7.3 H (0-7) % Eos % (Auto) 0.1 (0-6) % Baso % (Auto) 0.4 (0-2) % Absolute Neuts (auto) 16.8 H (1.5-7.7) 10^3/ul Absolute Lymphs (auto) 1.1 (1.0-4.8) 10^3/ul Absolute Monos (auto) 1.4 H (0-0.8) 10^3/ul Absolute Eos (auto) 0 (0-0.6) 10^3/ul Absolute Basos (auto) 0.1 (0-0.2) 10^3/ul Absolute Nucleated RBC 0 10^3/ul Nucleated RBC % 0 INR (Anticoag Therapy) 0.92 (0.77-1.02) APTT 26.7 (26.0-36.3) seconds D-Dimer, Quantitative < 200 (Less Than 230) ng/mL VBG pH (7.33-7.43) VBG pCO2 (41-51) mmHg VBG pO2 (35-45) mmHg VBG HCO3 (24-28) mmol/L VBG O2 Saturation (70-80) % VBG Base Excess (0-4) Sodium 132 L (133-145) mmol/L Potassium 4.2 (3.5-5.0) mmol/L Chloride 94 L (101-111) mmol/L Carbon Dioxide 20 L (22-32) mmol/L Anion Gap 18 H (2-11) mmol/L BUN 26 H (6-24) mg/dL Creatinine 1.58 H (0.67-1.17) mg/dL Est GFR ( Amer) 57.6 (>60) Est GFR (Non-Af Amer) 44.8 (>60) BUN/Creatinine Ratio 16.5 (8-20) Glucose 460 H (70-100) mg/dL Lactic Acid (0.5-2.0) mmol/L Calcium 9.7 (8.6-10.3) mg/dL Magnesium 1.8 L (1.9-2.7) mg/dL Total Bilirubin 0.60 (0.2-1.0) mg/dL AST 15 (13-39) U/L ALT 7 (7-52) U/L Alkaline Phosphatase 70 (34-104) U/L Total Creatine Kinase 56 (10-223) U/L CK-MB (CK-2) 5.0 (0.6-6.3) ng/mL Troponin I 0.04 H* (<0.04) ng/mL Total Protein 6.9 (6.4-8.9) g/dL Albumin 4.0 (3.2-5.2) g/dL Globulin 2.9 (2-4) g/dL Albumin/Globulin Ratio 1.4 (1-3) Salicylates < 2.50 (<30) mg/dL Urine Opiates Screen (None Detect) Acetaminophen < 15 mcg/mL Ur Barbiturates Screen (None Detect) Ur Phencyclidine Scrn (None Detect) Ur Amphetamines Screen (None Detect) U Benzodiazepines Scrn (None Detect) Urine Cocaine Screen (None Detect) U Cannabinoids Screen (None Detect) Serum Alcohol < 10 (<10) mg/dL 12/30/17 12/30/17 12/30/17 Range/Units 15:55 15:55 16:51 WBC (3.5-10.8) 10^3/ul RBC (4.0-5.4) 10^6/ul Hgb (14.0-18.0) g/dl Hct (42-52) % MCV (80-94) fL MCH (27-31) pg MCHC (31-36) g/dl RDW (10.5-15) % Plt Count (150-450) 10^3/ul MPV (7.4-10.4) um3 Neut % (Auto) (38-83) % Lymph % (Auto) (25-47) % [place] % (Auto) (0-7) % Eos % (Auto) (0-6) % Baso % (Auto) (0-2) % Absolute Neuts (auto) (1.5-7.7) 10^3/ul Absolute Lymphs (auto) (1.0-4.8) 10^3/ul Absolute Monos (auto) (0-0.8) 10^3/ul Absolute Eos (auto) (0-0.6) 10^3/ul Absolute Basos (auto) (0-0.2) 10^3/ul Absolute Nucleated RBC 10^3/ul Nucleated RBC % INR (Anticoag Therapy) (0.77-1.02) APTT (26.0-36.3) seconds D-Dimer, Quantitative (Less Than 230) ng/mL VBG pH 7.32 L (7.33-7.43) VBG pCO2 41 (41-51) mmHg VBG pO2 36 (35-45) mmHg VBG HCO3 20.2 L (24-28) mmol/L VBG O2 Saturation 73.7 (70-80) % VBG Base Excess -4.8 L (0-4) Sodium (133-145) mmol/L Potassium (3.5-5.0) mmol/L Chloride (101-111) mmol/L Carbon Dioxide (22-32) mmol/L Anion Gap (2-11) mmol/L BUN (6-24) mg/dL Creatinine (0.67-1.17) mg/dL Est GFR ( Amer) (>60) Est GFR (Non-Af Amer) (>60) BUN/Creatinine Ratio (8-20) Glucose (70-100) mg/dL Lactic Acid 2.0 (0.5-2.0) mmol/L Calcium (8.6-10.3) mg/dL Magnesium (1.9-2.7) mg/dL Total Bilirubin (0.2-1.0) mg/dL AST (13-39) U/L ALT (7-52) U/L Alkaline Phosphatase (34-104) U/L Total Creatine Kinase (10-223) U/L CK-MB (CK-2) (0.6-6.3) ng/mL Troponin I (<0.04) ng/mL Total Protein (6.4-8.9) g/dL Albumin (3.2-5.2) g/dL Globulin (2-4) g/dL Albumin/Globulin Ratio (1-3) Salicylates (<30) mg/dL Urine Opiates Screen None detected (None Detect) Acetaminophen mcg/mL Ur Barbiturates Screen None detected (None Detect) Ur Phencyclidine Scrn None detected (None Detect) Ur Amphetamines Screen None detected (None Detect) U Benzodiazepines Scrn None detected (None Detect) Urine Cocaine Screen Presumptive positive A (None Detect) U Cannabinoids Screen None detected (None Detect) Serum Alcohol (<10) mg/dL 12/30/17 Range/Units 18:15 WBC (3.5-10.8) 10^3/ul RBC (4.0-5.4) 10^6/ul Hgb (14.0-18.0) g/dl Hct (42-52) % MCV (80-94) fL MCH (27-31) pg MCHC (31-36) g/dl RDW (10.5-15) % Plt Count (150-450) 10^3/ul MPV (7.4-10.4) um3 Neut % (Auto) (38-83) % Lymph % (Auto) (25-47) % [place] % (Auto) (0-7) % Eos % (Auto) (0-6) % Baso % (Auto) (0-2) % Absolute Neuts (auto) (1.5-7.7) 10^3/ul Absolute Lymphs (auto) (1.0-4.8) 10^3/ul Absolute Monos (auto) (0-0.8) 10^3/ul Absolute Eos (auto) (0-0.6) 10^3/ul Absolute Basos (auto) (0-0.2) 10^3/ul Absolute Nucleated RBC 10^3/ul Nucleated RBC % INR (Anticoag Therapy) (0.77-1.02) APTT (26.0-36.3) seconds D-Dimer, Quantitative (Less Than 230) ng/mL VBG pH (7.33-7.43) VBG pCO2 (41-51) mmHg VBG pO2 (35-45) mmHg VBG HCO3 (24-28) mmol/L VBG O2 Saturation (70-80) % VBG Base Excess (0-4) Sodium (133-145) mmol/L Potassium (3.5-5.0) mmol/L Chloride (101-111) mmol/L Carbon Dioxide (22-32) mmol/L Anion Gap (2-11) mmol/L BUN (6-24) mg/dL Creatinine (0.67-1.17) mg/dL Est GFR ( Amer) (>60) Est GFR (Non-Af Amer) (>60) BUN/Creatinine Ratio (8-20) Glucose (70-100) mg/dL Lactic Acid (0.5-2.0) mmol/L Calcium (8.6-10.3) mg/dL Magnesium (1.9-2.7) mg/dL Total Bilirubin (0.2-1.0) mg/dL AST (13-39) U/L ALT (7-52) U/L Alkaline Phosphatase (34-104) U/L Total Creatine Kinase (10-223) U/L CK-MB (CK-2) (0.6-6.3) ng/mL Troponin I 0.04 H* (<0.04) ng/mL Total Protein (6.4-8.9) g/dL Albumin (3.2-5.2) g/dL Globulin (2-4) g/dL Albumin/Globulin Ratio (1-3) Salicylates (<30) mg/dL Urine Opiates Screen (None Detect) Acetaminophen mcg/mL Ur Barbiturates Screen (None Detect) Ur Phencyclidine Scrn (None Detect) Ur Amphetamines Screen (None Detect) U Benzodiazepines Scrn (None Detect) Urine Cocaine Screen (None Detect) U Cannabinoids Screen (None Detect) Serum Alcohol (<10) mg/dL Microbiology and Other Data: Microbiology 12/31/17 13:25 Influenza Types A,B Antigen (MUNIRA) - Final Nasal Specimen received for Influenza A/B Molecular testing Assess/Plan/Problems-Billing Assessment: 62 yo M with h/o obesity, COPD, HTN , Parkinson's,presents after developing abd pain with bloody diarrhea and taking cocaine for it at home - Patient Problems (1) Atrial fibrillation with rapid ventricular response Current Visit: Yes Status: Acute Code(s): I48.91 - UNSPECIFIED ATRIAL FIBRILLATION SNOMED Code(s): 240503106846752 Comment: Unknown duration, precipitated by cocaine? Pt is asymptomatic. Cardiology consult appreciated. started on Cardizem PO and given a dose of Digoxin. Reduce diltiazem CD on 01/03 , start metoprolol 25 mg bid 01/02 PM. No anticoagulation due to heme+stool Echo 01/02 showed mod LVH, nl LVEF. TSH 0.85 on 12/31/17. (2) Abdominal pain Current Visit: Yes Status: Acute Code(s): R10.9 - UNSPECIFIED ABDOMINAL PAIN SNOMED Code(s): 16420475 Comment: CT shows no marked abnormalities, but clinically pt possibly has colitis or diverticulitis. Change to po amox/clav 01/01/18 PM. Cx stool Stool heme +-looked loose brown with streaks of bright red blood in it Suspect the GI bleed is lower and due to colitis -will d/c Protonix gtt and start omeprazole BID Advance to low fiber diet. GI consult appreciated. (3) Diabetes mellitus Current Visit: No Status: Chronic Code(s): E11.9 - TYPE 2 DIABETES MELLITUS WITHOUT COMPLICATIONS SNOMED Code(s): 89369919 Comment: Start Lantus 01/02 2 PM. FSBG with Lispro SSI Re-start metformin 3/5 AM, assuming no further IV dye given or planned. Note A1C 13.6 on 12/30/17. (4) Morbid obesity Current Visit: Yes Status: Acute Code(s): E66.01 - MORBID (SEVERE) OBESITY DUE TO EXCESS CALORIES SNOMED Code(s): 864561554 Comment: BMI 47.8. Status and Disposition: inpatient
[2018-01-02] MEDS ORDERED: Insulin GLARGINE(*) 1 UNITS UNIT SUBCUT SCH (14:00)
[2018-01-02] MEDS: Cyclobenzaprine TAB* 10 MG PO PRN (16:39)
[2018-01-02] MEDS: Metoprolol Tartrate TAB* 25 MG PO SCH (20:48)
[2018-01-02] MEDS: QUEtiapine TAB* 25 MG PO SCH (20:48)
[2018-01-02] MEDS: Nicotine Patch Removal NOTE PATCH OFF SCH (20:52)
[2018-01-03] MEDS: Tiotropium CAP.INH* CAP.INH/18 MCG (USE ORDER SET !) INH SCH (08:18)
[2018-01-03] MEDS: Cyclobenzaprine TAB* 10 MG PO PRN ×2 (08:27→17:50)
[2018-01-03] MEDS: CMC: Pravastatin (NF) 20 MG TAB PO SCH (08:28)
[2018-01-03] MEDS: Omeprazole CAP* 20 MG PO SCH ×2 (08:29→17:12)
[2018-01-03] MEDS: metFORMIN* 1,000 MG TAB PO SCH ×2 (08:29→17:12)
[2018-01-03] MEDS: Docusate CAP* 100 MG PO SCH ×2 (08:29→20:36)
[2018-01-03] MEDS: Amoxicillin/Clavulanate TAB* 875 MG PO SCH ×2 (08:29→20:33)
[2018-01-03] MEDS: Famotidine TAB* 20 MG PO SCH ×2 (08:29→20:36)
[2018-01-03] MEDS: metroNIDAZOLE IV 500 MG/100ML* 500 MG/100 ML BAG IVPB SCH ×2 (08:30→17:12)
[2018-01-03] MEDS: DULoxetine DR CAP* 30 MG CAP.DR PO SCH (08:30)
[2018-01-03] MEDS: Metoprolol Tartrate TAB* 25 MG PO SCH ×2 (08:30→20:40)
[2018-01-03] MEDS: Gabapentin CAP(*) 300 MG PO SCH ×2 (08:30→20:37)
[2018-01-03] MEDS: Carbidopa/Levodop 25/250MG TAB(*) PO SCH (08:30)
[2018-01-03] MEDS: Insulin LISPRO* 1 UNITS UNIT SUBCUT SCH ×4 (08:31→20:30)
[2018-01-03] MEDS: Nicotine PATCH 21 MG/24 HR* PATCH TRANSDERM SCH (08:31)
[2018-01-03] MEDS: Carbidopa/Levodop 10/100 MG TAB(*) PO SCH ×2 (08:31→20:35)
[2018-01-03] MEDS ORDERED: Influenza VAC *QUAD* 2017-18* 0.5 ML SYRINGE IM ONE (09:00)
[2018-01-03] MEDS ORDERED: Diltiazem CD CAP* 180 MG PO SCH ×2 (09:00→13:24)
[2018-01-03] MEDS: Acetaminophen TAB* 325 MG PO PRN (10:30)
[2018-01-03] MEDS ORDERED: Insulin GLARGINE(*) 1 UNITS UNIT SUBCUT SCH (13:26)
--- NOTE | 2018-01-03 13:43 | PN ---
Subjective Date of Service: 01/03/18 Interval History: Abdominal pain much better. He reports a black stool. No new c/o. Objective Active Medications: Acetaminophen (Tylenol Tab*) 650 mg PO Q6H PRN PRN Reason: FEVER/PAIN Last Admin: 01/03/18 10:30 Dose: 650 mg Albuterol (Ventolin 2.5 Mg/3 Ml Neb.Miriam*) 2.5 mg INH Q2H PRN PRN Reason: SOB/WHEEZING Amoxicillin/Clavulanate Potassium (Augmentin Tab*) 875 mg PO BID [facility] Stop: 01/07/18 12:30 Last Admin: 01/03/18 08:29 Dose: 875 mg Carbidopa/Levodopa (Sinemet 10/100 Tab(*)) 1 tab PO BID [facility] Last Admin: 01/03/18 08:31 Dose: 1 tab Carbidopa/Levodopa (Sinemet 25/250 Tab(*)) 1 tab PO DAILY [facility] Last Admin: 01/03/18 08:30 Dose: 1 tab Cyclobenzaprine HCl (Flexeril Tab*) 10 mg PO TID PRN PRN Reason: muscle spasms Last Admin: 01/03/18 08:27 Dose: 10 mg Diltiazem HCl (Cardizem Cd Cap*) 180 mg PO DAILY [facility] Docusate Sodium (Colace Cap*) 200 mg PO BID [facility] Last Admin: 01/03/18 08:29 Dose: 200 mg Duloxetine HCl (Cymbalta Cap*) 30 mg PO DAILY [facility] Last Admin: 01/03/18 08:30 Dose: 30 mg Famotidine (Pepcid Tab*) 40 mg PO BID [facility] Last Admin: 01/03/18 08:29 Dose: 40 mg Gabapentin (Neurontin Cap(*)) 300 mg PO BID [facility] Last Admin: 01/03/18 08:30 Dose: 300 mg Metronidazole/Sodium Chloride (Flagyl 500 Mg Ivpb*) 500 mg in 100 mls @ 100 mls /hr IVPB 0000,0800,1600 [facility] Last Admin: 01/03/18 08:30 Dose: 100 mls/hr Insulin Glargine (Lantus(*)) 24 units SUBCUT Q24H [facility] Insulin Human Lispro (Humalog*) 0 units SUBCUT ACHS [facility] PRN Reason: Protocol Last Admin: 01/03/18 12:28 Dose: 6 unit Levalbuterol HCl (Xopenex 1.25 Mg/0.5 Ml Neb.Miriam*) 1.25 mg INH Q4H PRN PRN Reason: WHEEZING Metformin HCl (Glucophage*) 1,000 mg PO 0800,1700 [facility] Last Admin: 01/03/18 08:29 Dose: 1,000 mg Metoprolol Tartrate (Lopressor Tab*) 25 mg PO BID [facility] Last Admin: 01/03/18 08:30 Dose: 25 mg Nicotine (Nicotine Patch 21 Mg/24 Hr*) 1 patch TRANSDERM DAILY [facility] Last Admin: 01/03/18 08:31 Dose: 1 patch Omeprazole (Prilosec Cap*) 20 mg PO BID [facility] Last Admin: 01/03/18 08:29 Dose: 20 mg Ondansetron HCl (Zofran Inj*) 4 mg IV Q6H PRN PRN Reason: NAUSEA Pharmacy Profile Note (Nicotine Patch Removal Note*) 1 note PATCH OFF 2100 [facility] Last Admin: 01/02/18 20:52 Dose: 1 note Pravastatin Sodium (Pravachol (Nf)) 10 mg PO DAILY [facility] Last Admin: 01/03/18 08:28 Dose: 10 mg Quetiapine Fumarate (Seroquel Tab*) 25 mg PO BEDTIME [facility] Last Admin: 01/02/18 20:48 Dose: 25 mg Tiotropium [place] (Spiriva Cap.Inh*) 1 cap INH DAILY [facility] Last Admin: 01/03/18 08:18 Dose: 1 cap Vital Signs - 8 hr 01/03/18 01/03/18 01/03/18 07:37 08:00 08:27 Temperature 97.4 F Pulse Rate 51 Respiratory 16 16 18 Rate Blood Pressure 135/65 (mmHg) O2 Sat by Pulse 99 Oximetry 01/03/18 01/03/18 01/03/18 08:30 11:43 11:44 Temperature Pulse Rate Respiratory 18 16 16 Rate Blood Pressure (mmHg) O2 Sat by Pulse Oximetry Oxygen Devices in Use Now: None Appearance: Alert, in a chair. In good spirits. Looks comfortable. Eyes: No Scleral Icterus Abdominal: NL Sounds; No Tenderness; No Distention, No Hepatosplenomegaly, - - massive pannus Skin: No Rash or Ulcers, No Nodules or Sclerosis, - Neurological: Alert and Oriented x 3, NL Sensation, - Result Diagrams: 01/01/18 06:02 01/01/18 06:02 Additional Lab and Data: Lab Results 12/30/17 12/30/17 12/30/17 Range/Units 15:55 15:55 15:55 WBC 19.4 H (3.5-10.8) 10^3/ul RBC 5.72 H (4.0-5.4) 10^6/ul Hgb 17.0 (14.0-18.0) g/dl Hct 52 (42-52) % MCV 91 (80-94) fL MCH 30 (27-31) pg MCHC 33 (31-36) g/dl RDW 15 (10.5-15) % Plt Count 246 (150-450) 10^3/ul MPV 9 (7.4-10.4) um3 Neut % (Auto) 86.3 H (38-83) % Lymph % (Auto) 5.9 L (25-47) % [place] % (Auto) 7.3 H (0-7) % Eos % (Auto) 0.1 (0-6) % Baso % (Auto) 0.4 (0-2) % Absolute Neuts (auto) 16.8 H (1.5-7.7) 10^3/ul Absolute Lymphs (auto) 1.1 (1.0-4.8) 10^3/ul Absolute Monos (auto) 1.4 H (0-0.8) 10^3/ul Absolute Eos (auto) 0 (0-0.6) 10^3/ul Absolute Basos (auto) 0.1 (0-0.2) 10^3/ul Absolute Nucleated RBC 0 10^3/ul Nucleated RBC % 0 INR (Anticoag Therapy) 0.92 (0.77-1.02) APTT 26.7 (26.0-36.3) seconds D-Dimer, Quantitative < 200 (Less Than 230) ng/mL VBG pH (7.33-7.43) VBG pCO2 (41-51) mmHg VBG pO2 (35-45) mmHg VBG HCO3 (24-28) mmol/L VBG O2 Saturation (70-80) % VBG Base Excess (0-4) Sodium 132 L (133-145) mmol/L Potassium 4.2 (3.5-5.0) mmol/L Chloride 94 L (101-111) mmol/L Carbon Dioxide 20 L (22-32) mmol/L Anion Gap 18 H (2-11) mmol/L BUN 26 H (6-24) mg/dL Creatinine 1.58 H (0.67-1.17) mg/dL Est GFR ( Amer) 57.6 (>60) Est GFR (Non-Af Amer) 44.8 (>60) BUN/Creatinine Ratio 16.5 (8-20) Glucose 460 H (70-100) mg/dL Lactic Acid (0.5-2.0) mmol/L Calcium 9.7 (8.6-10.3) mg/dL Magnesium 1.8 L (1.9-2.7) mg/dL Total Bilirubin 0.60 (0.2-1.0) mg/dL AST 15 (13-39) U/L ALT 7 (7-52) U/L Alkaline Phosphatase 70 (34-104) U/L Total Creatine Kinase 56 (10-223) U/L CK-MB (CK-2) 5.0 (0.6-6.3) ng/mL Troponin I 0.04 H* (<0.04) ng/mL Total Protein 6.9 (6.4-8.9) g/dL Albumin 4.0 (3.2-5.2) g/dL Globulin 2.9 (2-4) g/dL Albumin/Globulin Ratio 1.4 (1-3) Salicylates < 2.50 (<30) mg/dL Urine Opiates Screen (None Detect) Acetaminophen < 15 mcg/mL Ur Barbiturates Screen (None Detect) Ur Phencyclidine Scrn (None Detect) Ur Amphetamines Screen (None Detect) U Benzodiazepines Scrn (None Detect) Urine Cocaine Screen (None Detect) U Cannabinoids Screen (None Detect) Serum Alcohol < 10 (<10) mg/dL 12/30/17 12/30/17 12/30/17 Range/Units 15:55 15:55 16:51 WBC (3.5-10.8) 10^3/ul RBC (4.0-5.4) 10^6/ul Hgb (14.0-18.0) g/dl Hct (42-52) % MCV (80-94) fL MCH (27-31) pg MCHC (31-36) g/dl RDW (10.5-15) % Plt Count (150-450) 10^3/ul MPV (7.4-10.4) um3 Neut % (Auto) (38-83) % Lymph % (Auto) (25-47) % [place] % (Auto) (0-7) % Eos % (Auto) (0-6) % Baso % (Auto) (0-2) % Absolute Neuts (auto) (1.5-7.7) 10^3/ul Absolute Lymphs (auto) (1.0-4.8) 10^3/ul Absolute Monos (auto) (0-0.8) 10^3/ul Absolute Eos (auto) (0-0.6) 10^3/ul Absolute Basos (auto) (0-0.2) 10^3/ul Absolute Nucleated RBC 10^3/ul Nucleated RBC % INR (Anticoag Therapy) (0.77-1.02) APTT (26.0-36.3) seconds D-Dimer, Quantitative (Less Than 230) ng/mL VBG pH 7.32 L (7.33-7.43) VBG pCO2 41 (41-51) mmHg VBG pO2 36 (35-45) mmHg VBG HCO3 20.2 L (24-28) mmol/L VBG O2 Saturation 73.7 (70-80) % VBG Base Excess -4.8 L (0-4) Sodium (133-145) mmol/L Potassium (3.5-5.0) mmol/L Chloride (101-111) mmol/L Carbon Dioxide (22-32) mmol/L Anion Gap (2-11) mmol/L BUN (6-24) mg/dL Creatinine (0.67-1.17) mg/dL Est GFR ( Amer) (>60) Est GFR (Non-Af Amer) (>60) BUN/Creatinine Ratio (8-20) Glucose (70-100) mg/dL Lactic Acid 2.0 (0.5-2.0) mmol/L Calcium (8.6-10.3) mg/dL Magnesium (1.9-2.7) mg/dL Total Bilirubin (0.2-1.0) mg/dL AST (13-39) U/L ALT (7-52) U/L Alkaline Phosphatase (34-104) U/L Total Creatine Kinase (10-223) U/L CK-MB (CK-2) (0.6-6.3) ng/mL Troponin I (<0.04) ng/mL Total Protein (6.4-8.9) g/dL Albumin (3.2-5.2) g/dL Globulin (2-4) g/dL Albumin/Globulin Ratio (1-3) Salicylates (<30) mg/dL Urine Opiates Screen None detected (None Detect) Acetaminophen mcg/mL Ur Barbiturates Screen None detected (None Detect) Ur Phencyclidine Scrn None detected (None Detect) Ur Amphetamines Screen None detected (None Detect) U Benzodiazepines Scrn None detected (None Detect) Urine Cocaine Screen Presumptive positive A (None Detect) U Cannabinoids Screen None detected (None Detect) Serum Alcohol (<10) mg/dL 12/30/17 Range/Units 18:15 WBC (3.5-10.8) 10^3/ul RBC (4.0-5.4) 10^6/ul Hgb (14.0-18.0) g/dl Hct (42-52) % MCV (80-94) fL MCH (27-31) pg MCHC (31-36) g/dl RDW (10.5-15) % Plt Count (150-450) 10^3/ul MPV (7.4-10.4) um3 Neut % (Auto) (38-83) % Lymph % (Auto) (25-47) % [place] % (Auto) (0-7) % Eos % (Auto) (0-6) % Baso % (Auto) (0-2) % Absolute Neuts (auto) (1.5-7.7) 10^3/ul Absolute Lymphs (auto) (1.0-4.8) 10^3/ul Absolute Monos (auto) (0-0.8) 10^3/ul Absolute Eos (auto) (0-0.6) 10^3/ul Absolute Basos (auto) (0-0.2) 10^3/ul Absolute Nucleated RBC 10^3/ul Nucleated RBC % INR (Anticoag Therapy) (0.77-1.02) APTT (26.0-36.3) seconds D-Dimer, Quantitative (Less Than 230) ng/mL VBG pH (7.33-7.43) VBG pCO2 (41-51) mmHg VBG pO2 (35-45) mmHg VBG HCO3 (24-28) mmol/L VBG O2 Saturation (70-80) % VBG Base Excess (0-4) Sodium (133-145) mmol/L Potassium (3.5-5.0) mmol/L Chloride (101-111) mmol/L Carbon Dioxide (22-32) mmol/L Anion Gap (2-11) mmol/L BUN (6-24) mg/dL Creatinine (0.67-1.17) mg/dL Est GFR ( Amer) (>60) Est GFR (Non-Af Amer) (>60) BUN/Creatinine Ratio (8-20) Glucose (70-100) mg/dL Lactic Acid (0.5-2.0) mmol/L Calcium (8.6-10.3) mg/dL Magnesium (1.9-2.7) mg/dL Total Bilirubin (0.2-1.0) mg/dL AST (13-39) U/L ALT (7-52) U/L Alkaline Phosphatase (34-104) U/L Total Creatine Kinase (10-223) U/L CK-MB (CK-2) (0.6-6.3) ng/mL Troponin I 0.04 H* (<0.04) ng/mL Total Protein (6.4-8.9) g/dL Albumin (3.2-5.2) g/dL Globulin (2-4) g/dL Albumin/Globulin Ratio (1-3) Salicylates (<30) mg/dL Urine Opiates Screen (None Detect) Acetaminophen mcg/mL Ur Barbiturates Screen (None Detect) Ur Phencyclidine Scrn (None Detect) Ur Amphetamines Screen (None Detect) U Benzodiazepines Scrn (None Detect) Urine Cocaine Screen (None Detect) U Cannabinoids Screen (None Detect) Serum Alcohol (<10) mg/dL Microbiology and Other Data: Microbiology 12/31/17 13:25 Influenza Types A,B Antigen ([facility]) - Final Nasal Specimen received for Influenza A/B Molecular testing Assess/Plan/Problems-Billing Assessment: 62 yo M with h/o obesity, COPD, HTN , Parkinson's,presents after developing abd pain with bloody diarrhea and taking cocaine for it at home - Patient Problems (1) Atrial fibrillation with rapid ventricular response Current Visit: Yes Status: Acute Code(s): I48.91 - UNSPECIFIED ATRIAL FIBRILLATION SNOMED Code(s): 382387868102504 Comment: Unknown duration, precipitated by cocaine? Pt is asymptomatic. Cardiology consult appreciated. started on Cardizem PO and given a dose of Digoxin. Reduce diltiazem CD on 01/03 , start metoprolol 25 mg bid 01/02 PM. No anticoagulation due to heme+stool Echo 01/02 showed mod LVH, nl LVEF. TSH 0.85 on 12/31/17. I will defer decision on anticoagulation to his PCP pending completion of GI wup. (2) Abdominal pain Current Visit: Yes Status: Acute Code(s): R10.9 - UNSPECIFIED ABDOMINAL PAIN SNOMED Code(s): 73262558 Comment: CT shows no marked abnormalities, but clinically pt possibly has colitis or diverticulitis. Change to po amox/clav 01/01/18 PM. Cx stool Stool heme +-looked loose brown with streaks of bright red blood in it Suspect the GI bleed is lower and due to colitis -will d/c Protonix gtt and start omeprazole BID Plan EGD 01/04. (3) Diabetes mellitus Current Visit: No Status: Chronic Code(s): E11.9 - TYPE 2 DIABETES MELLITUS WITHOUT COMPLICATIONS SNOMED Code(s): 86065268 Comment: Start Lantus 01/02 2 PM. FSBG with Lispro SSI Re-start metformin 3/5 AM, assuming no further IV dye given or planned. Note A1C 13.6 on 12/30/17. (4) Morbid obesity Current Visit: Yes Status: Acute Code(s): E66.01 - MORBID (SEVERE) OBESITY DUE TO EXCESS CALORIES SNOMED Code(s): 777481258 Comment: BMI 47.8. (5) Psychiatric disorder Current Visit: Yes Status: Acute Code(s): F99 - MENTAL DISORDER, NOT OTHERWISE SPECIFIED SNOMED Code(s): 06543709 Comment: No pharmacy record of quetiapine use. D/C'd on quetiapine XR 50 mg daily from [facility] 2016. Continue 25 mg dose. Status and Disposition: inpatient
[2018-01-03] MEDS: HYDROcodone/ACETAMIN 5-325 MG* 1 TAB PO PRN ×3 (14:36→20:54)
[2018-01-03] MEDS: QUEtiapine TAB* 25 MG PO SCH (20:41)
[2018-01-03] MEDS: Nicotine Patch Removal NOTE PATCH OFF SCH (20:42)
[2018-01-04] MEDS: HYDROcodone/ACETAMIN 5-325 MG* 1 TAB PO PRN ×3 (00:52→11:58)
[2018-01-04] MEDS: Cyclobenzaprine TAB* 10 MG PO PRN ×3 (00:53→11:58)
[2018-01-04] MEDS: metroNIDAZOLE IV 500 MG/100ML* 500 MG/100 ML BAG IVPB SCH ×3 (00:55→08:36)
[2018-01-04 05:30] LABS: ABS Basophils 0.1 10^3/ul (0-0.2); ABS Eosinophils 0.3 10^3/ul (0-0.6); ABS Lymphocytes 2.5 10^3/ul (1.0-4.8); ABS Monocytes 0.6 10^3/ul (0-0.8); ABS Neutrophils 3.7 10^3/ul (1.5-7.7); ABS Nucleated RBC 0 10^3/ul; Eosinophil % 4.4 % (0-6); Hematocrit 44 % (42-52); Hemoglobin 14.6 g/dl (14.0-18.0); Lymphocyte % 34.9 % (25-47); Mean Corpuscular HGB Conc 33 g/dl (31-36); Mean Corpuscular Hemoglobin 30 pg (27-31); Mean Corpuscular Volume 91 fL (80-94); Mean Platelet Volume 8 um3 (7.4-10.4); Nucleated Red Blood Cells % 0.1; Platelet Count 226 10^3/ul (150-450); Red Blood Count 4.86 10^6/ul (4.0-5.4); Red Cell Distribution Width 16 % (10.5-15); White Blood Count 7.3 10^3/ul (3.5-10.8)
[2018-01-04 05:50] LABS: EGFR Non-African American 81.6 (>60)
[2018-01-04] MEDS: Insulin LISPRO* 1 UNITS UNIT SUBCUT SCH ×2 (08:33→11:56)
[2018-01-04] MEDS: Metoprolol Tartrate TAB* 25 MG PO SCH (08:33)
[2018-01-04] MEDS: Nicotine PATCH 21 MG/24 HR* PATCH TRANSDERM SCH (08:33)
[2018-01-04] MEDS ORDERED: Diltiazem CD CAP* 180 MG PO SCH (09:00)
[2018-01-04] MEDS ORDERED: fentaNYL* 50 MCG/ML 2 ML VIAL (100 MCG VIAL) ONE (09:20)
[2018-01-04] MEDS ORDERED: Midazolam* 1 MG/ML 10 ML VIAL (10 MG) ONE (09:20)
[2018-01-04] MEDS: Tiotropium CAP.INH* CAP.INH/18 MCG (USE ORDER SET !) INH SCH (09:39)
[2018-01-04] MEDS: DULoxetine DR CAP* 30 MG CAP.DR PO SCH (11:57)
[2018-01-04] MEDS: metFORMIN* 1,000 MG TAB PO SCH (11:57)
[2018-01-04] MEDS: Famotidine TAB* 20 MG PO SCH (11:57)
[2018-01-04] MEDS: Amoxicillin/Clavulanate TAB* 875 MG PO SCH (11:57)
[2018-01-04] MEDS: Gabapentin CAP(*) 300 MG PO SCH (11:58)
[2018-01-04] MEDS: CMC: Pravastatin (NF) 20 MG TAB PO SCH (12:03)
[2018-01-04] MEDS: Carbidopa/Levodop 25/250MG TAB(*) PO SCH (12:03)
[2018-01-04] MEDS: Carbidopa/Levodop 10/100 MG TAB(*) PO SCH (12:04)
[2018-01-04] MEDS: Docusate CAP* 100 MG PO SCH (12:05)
[2018-01-04] MEDS: Omeprazole CAP* 20 MG PO SCH (12:11)
--- NOTE | 2018-01-04 12:21 | PN ---
Progress Note - Progress Note Date of Service: 01/04/18 Note: Time spent on discharge 50 minutes.
[2018-01-04 13:58] VITALS: BP 150/70
--- NOTE | 2018-01-05 07:56 | PRO ---
DATE: 01/04/18 - ROOM #452 REFERRING PHYSICIANS: Dr. Stanislav Damian, Dr. Daniel Bar.* PROCEDURE: Upper gastrointestinal endoscopy through third portion of duodenum. INDICATION: This 62-year-old man admitted in atrial arrhythmia and contemplated to be placed on warfarin has had numerous other issues raising concern about GI bleeding risk. In the days prior to admission, he was having crampy abdominal pain. He did pass some dark blood. He, however, had a normal CBC and BUN at admission. He has not had persisting bleeding. He takes a fair amount of NSAIDs as an outpatient. He is a very poor historian and the medication list compliance is highly in question. He states he has been on Prevacid and other medicines like it for many years having been initially prescribed by a physician in [facility] for clinically diagnosed GERD. He has never had this test before. ENDOSCOPIST: Dr. Verduzco. MEDICATION: Midazolam 3, fentanyl 12.5 (midazolam in 0.5 mg increments). FINDINGS: He is a morbidly obese older man appearing older than stated age with a large haney. EGD: Larynx - symmetric, somewhat narrow with thick secretions. Esophagus - easily entered, the mucosa is normal in the upper, mid, and lower esophagus with the EG junction at 44, snug. There are no erosions or Bright's change. Stomach - generally normal mucosa with normal rugal folds that are somewhat exuberant though there are not any polyps per se. There are no erosions and no blood seen. There is no scar or deformity. The distal body and antrum appear normal. Duodenum - the pylorus, bulb, and second through fourth portions appear normal. During slow withdrawal, there were no additional findings. IMPRESSION: 1. Normal EGD. 2. Acid indigestion complaint - probably from nonerosive gastroesophageal reflux disease and continuing proton pump inhibitor appears appropriate given uncertain nonsteroidal anti-inflammatory drug exposure. [id number]/[facility] #: [id number] [facility]
--- NOTE | 2018-01-05 11:04 | DS ---
CC: Dr. Damian * DISCHARGE SUMMARY: DATE OF ADMISSION: 12/31/17 DATE OF DISCHARGE: 01/04/18 HOSPITAL COURSE: This 62-year-old man presented with chest pain. At first, the EKG was interpreted as junctional rhythm. However, his heart rate was 137. I believe in retrospect, he was in atrial flutter at the time of arrival in the emergency room. It is not clear if he had an infection or not. He met SIRS criteria. The patient recently had cocaine and this is most likely the cause of his chest pain as well as may have contributed to the arrhythmia. The patient had a transthoracic echocardiogram on 12/31/17. The technical quality was poor because of body habitus. Ejection fraction was estimated as greater than 65%. There were no significant valvular abnormalities. There was a mildly dilated descending aorta. The patient was given rate control agents. He had positive stools for blood on two measurements. His hematocrit, however, was fairly stable. The initial value is 52 in the ER, 44 the next morning and again 44 on the day of discharge. He underwent upper endoscopy on the day of discharge, which was unremarkable. He was rate controlled adequately on the combination of metoprolol and Diltiazem CD. He may be considered for anticoagulation, but I think if that was the case, he would need to be evaluated more thoroughly for GI bleeding as he is 62 and in any case, a colonoscopy would be indicated. It certainly should be expedited if this would influence the decision to anticoagulate him. On discharge, he was given 30 hydrocodone and acetaminophen 5/325 p.r.n. for his chronic pain. FINAL DIAGNOSES: 1. Atrial flutter. 2. Abdominal pain, resolved. 3. Guaiac-positive stools. 4. Diabetes mellitus. 5. Morbid obesity. 6. Psychiatric disorder. His quetiapine dose was cut in half. I do not think he had had any for sometime at home, possibly a month or more. DISCHARGE MEDICATIONS: 1. Diltiazem CD 180 mg daily. 2. Hydrocodone/acetaminophen 5/325, 1 every 3 hours p.r.n. 3. Nicotine patch at 9 p.m. 4. Quetiapine 25 mg at bedtime. 5. Metoprolol tartrate 25 mg b.i.d. 6. Cyclobenzaprine 10 mg t.i.d. p.r.n. 7. Tiotropium 1 inhalation daily. 8. Carbidopa/levodopa 10/100, 1 b.i.d. 9. Duloxetine 30 mg daily. 10. Metformin 1000 mg b.i.d. 11. Hydrochlorothiazide 25 mg daily. 12. Diphenhydramine 50 mg b.i.d. 13. Olopatadine 0.1% ophthalmic 1 drop both eyes daily. 14. Pravastatin 10 mg daily. 15. Carbidopa/levodopa 25/250, 1 daily. 16. Gabapentin 300 mg b.i.d. 17. Omeprazole 20 mg daily. 18. Glargine insulin 25 units at bedtime. 19. Gabapentin 600 mg at bedtime. 20. Simethicone 125 mg every 8 hours. 21. Lidocaine ointment as prescribed. 22. Famotidine 40 mg b.i.d. 23. Naproxen 220 mg every 8 hours p.r.n. 24. Mometasone nasal spray 2 sprays both nares daily. 25. Nicotine patch 21 mg daily. 26. Cetirizine 10 mg daily. [id number]/[facility] #: [id number] [facility]
== END 2018-01-04 13:40 | disposition home or self-care (01) | DRG 309 ==
LOC: ED 14:30 → MEDTELE 22:37 → OBSVTOIN 12-31 09:30
PROVIDERS: ADMIT Hospitalist; ATTEND Internal Medicine
PROC: 0DJ08ZZ Inspection of Upper Intestinal Tract, Via Natural or Artificial Opening Endoscopic (ICD-10-PCS; principal; 2018-01-04)
DX: I48.92 Unspecified atrial flutter (principal); N17.9 Acute kidney failure, unspecified; E11.42 Type 2 diabetes mellitus with diabetic polyneuropathy; E66.01 Morbid (severe) obesity due to excess calories; G20 Parkinson's disease; R65.10 Systemic inflammatory response syndrome (SIRS) of non-infectious origin without acute organ dysfunction; K92.1 Melena; Z68.42 Body mass index [BMI] 45.0-49.9, adult; I16.0 Hypertensive urgency; I15.8 Other secondary hypertension; R10.9 Unspecified abdominal pain; K52.9 Noninfective gastroenteritis and colitis, unspecified; I25.10 Atherosclerotic heart disease of native coronary artery without angina pectoris; I11.9 Hypertensive heart disease without heart failure; J44.9 Chronic obstructive pulmonary disease, unspecified; E78.5 Hyperlipidemia, unspecified; M54.5 Low back pain; K21.9 Gastro-esophageal reflux disease without esophagitis; R07.89 Other chest pain; F14.988 Cocaine use, unspecified with other cocaine-induced disorder; F12.90 Cannabis use, unspecified, uncomplicated; F17.210 Nicotine dependence, cigarettes, uncomplicated; F32.9 Major depressive disorder, single episode, unspecified; Z79.84 Long term (current) use of oral hypoglycemic drugs; Z86.73 Personal history of transient ischemic attack (TIA), and cerebral infarction without residual deficits; Z79.4 Long term (current) use of insulin; Z79.899 Other long term (current) drug therapy; Z88.6 Allergy status to analgesic agent; Z91.048 Other nonmedicinal substance allergy status; Z82.49 Family history of ischemic heart disease and other diseases of the circulatory system
CPT/HCPCS: 36415; 71045; 74177; 80048; 80053; 80076; 80307; 80320; 80329; 81003; 82272; 82550; 82553; 82803; 83036; 83605; 83735; 84443; 84484; 85014; 85018; 85025; 85379; 85610; 85730; 86140; 86850; 86900; 86901; 87040; 87493; 87502; 90686; 93005; 93306; 94640; 94760; 99156; 99157; 99284; A9270-GY; G0480; J0696; J1160; J2060; J2250; J2543; J3010; J3475; J3490; Q9967

== ENCOUNTER 2018-01-10 17:12 | Inpatient (IN) | payer MEDICARE, MEDICAID ==
[2018-01-10] MEDS ORDERED: Metoprolol Tartrate IV* 1 MG/ML 5 ML VIAL IV ONE (17:31)
[2018-01-10 18:00] LABS: ABS Basophils 0.1 10^3/ul (0-0.2); ABS Eosinophils 0.2 10^3/ul (0-0.6); ABS Lymphocytes 1.9 10^3/ul (1.0-4.8); ABS Monocytes 0.5 10^3/ul (0-0.8); ABS Neutrophils 5.2 10^3/ul (1.5-7.7); ABS Nucleated RBC 0 10^3/ul; Eosinophil % 2.8 % (0-6); Hematocrit 44 % (42-52); Hemoglobin 14.3 g/dl (14.0-18.0); Lymphocyte % 24.1 % (25-47); Mean Corpuscular HGB Conc 32 g/dl (31-36); Mean Corpuscular Hemoglobin 30 pg (27-31); Mean Corpuscular Volume 91 fL (80-94); Mean Platelet Volume 8 um3 (7.4-10.4); Nucleated Red Blood Cells % 0; Platelet Count 256 10^3/ul (150-450); Red Blood Count 4.85 10^6/ul (4.0-5.4); Red Cell Distribution Width 16 % (10.5-15); White Blood Count 7.9 10^3/ul (3.5-10.8)
--- NOTE | 2018-01-10 18:02 | RAD ---
INDICATION: Palpitations. COMPARISON: Comparison is made with a prior study from right first 2018. TECHNIQUE: A portable view of the chest was obtained. FINDINGS: The heart is within normal limits in size. The lungs are underinflated and grossly clear. IMPRESSION: NO EVIDENCE FOR ACUTE DISEASE.
[2018-01-10 18:05] LABS: INR 0.91 (0.77-1.02)
[2018-01-10 18:18] LABS: EGFR Non-African American 85.8 (>60)
[2018-01-10] MEDS ORDERED: Diltiazem IV* 5 MG/ML 5 ML VIAL (for loading dose/IV Push) (25 MG) IV SLOW PU ONE (19:43)
[2018-01-10] MEDS ORDERED: Diltiazem DRIP* 100 MG/100 ML ADDV.BAG IVPB ONE (19:43)
[2018-01-10] MEDS ORDERED: Diltiazem IV VIAL* 125 MG in NS 0.9% 100 ML* 100 ML IV ONE (20:00)
[2018-01-10] MEDS ORDERED: Diltiazem TAB* 60 MG PO ONE (20:26)
[2018-01-10] MEDS ORDERED: Albuterol 2.5 MG/3 ML NEB.SOL* (0.083%) INH PRN (20:31)
[2018-01-10] MEDS ORDERED: Magnesium Sulfate 2 GM IV* 2 GM/50 ML BAG IVPB ONE (20:31)
[2018-01-10] MEDS ORDERED: Dextrose 50% Syringe 50 ML* 25 GM/50 ML SYRINGE IV PUSH PRN (20:34)
[2018-01-10] MEDS ORDERED: Cyclobenzaprine TAB* 10 MG PO PRN (20:35)
[2018-01-10] MEDS ORDERED: NS 0.9% 1000 ML* 1,000 ML IV SCH (20:45)
--- NOTE | 2018-01-10 21:53 | ED ---
Rosalina Torrez Edward, scribed for Gian Ashby MD on 01/10/18 at 1719 . HPI Chest Pain - HPI Summary HPI Summary: 62 y/o male BIBA to the ED c/o L leg pain throughout the whole leg. Sx not aggravated or alleviated by anything. Pt also c/o SOB, "little stabs of CP now and then", mild nausea, dizziness, and overall malaise. Pt has not had any of his home medications for a week. Pt was sent from his doctor's office, for concerns regarding tachycardia. PMHx DM, CHF. Pt was recently admitted to [facility]. 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 - History of Current Complaint Time Seen by Provider: 01/10/18 17:17 Hx Obtained From: Patient Timing: Constant Character: Sharp/Stabbing Aggravating Factor(s): Nothing Alleviating Factor(s): Nothing Associated Signs and Symptoms: Positive: Chest Pain, Dizziness, Shortness of Breath, Nausea, Other: - L leg pain - Additional Pertinent History Primary Care Physician: [id number] - Allergy/Home Medications Allergies/Adverse Reactions: Allergies Allergy/AdvReac Type Severity Reaction Status Date / Time aspirin Allergy GI Upset Verified 12/30/17 21:01 ENVIRONMENTAL Allergy Rash And Uncoded 03/26/17 10:18 Itching WOOL Allergy Runny Nose Uncoded 03/26/17 10:18 Home Medications: Home Medications Nicotine PATCH 14 MG/24 HR* 14 mg TRANSDERM DAILY 01/10/18 [History Confirmed ] PMH/Surg Hx/FS Hx/Imm Hx Previously Healthy: No Endocrine/Hematology History: Reports: Hx Diabetes - neuropathy Cardiovascular History: Reports: Hx Congestive Heart Failure, Hx Hypercholesterolemia, Hx Hypertension, Other Cardiovascular Problems/Disorders - "Heart Disease" Respiratory History: Reports: Hx Chronic Obstructive Pulmonary Disease (COPD) GI History: Reports: Hx Gastroesophageal Reflux Disease, Other GI Disorders - "Hernia" History: Reports: Hx Kidney Stones, Hx Renal Disease - KIDNEY STONES BILATERALLY Musculoskeletal History: Reports: Hx Arthritis, Hx Back Problems, Hx Orthopedic Injury - Herniated discs, coccyx fracture, "degenerative spine" Sensory History: Reports: Hx Contacts or Glasses Denies: Hx Hearing Aid Opthamlomology History: Reports: Hx Contacts or Glasses Neurological History: Reports: Hx Migraine, Hx Transient Ischemic Attacks (TIA) - x5, Other Neuro Impairments/Disorders - Parkinsons, Bilateral leg neurophathy Psychiatric History: Reports: Hx Anxiety, Hx Depression, Hx Inpatient Treatment , Hx Community Mental Health Tx, Hx Bipolar Disorder, Hx Suicide Attempt - OD Denies: Hx Eating Disorder, Hx of Violent Episodes Against Others - Surgical History Surgery Procedure, Year, and Place: Appendectomy - Family History Known Family History: Positive: Cardiac Disease, Hypertension, Diabetes - Social History Alcohol Use: Occasionally Hx Substance Use: Yes Substance Use Type: Reports: Cocaine Substance Use Comment - Amount & Last Used: 1 joint a day Hx Tobacco Use: Yes Smoking Status (MU): Heavy Every Day Tobacco Smoker Review of Systems Constitutional: Negative Eyes: Negative ENT: Negative Positive: Chest Pain Positive: Shortness Of Breath Positive: Nausea Genitourinary: Negative Positive: Other - L leg pain Skin: Negative Neurological: Other - dizziness Psychological: Normal All Other Systems Reviewed And Are Negative: Yes Physical Exam - Summary Physical Exam Summary: Appearance: The patient is well-nourished in no acute distress and in no acute pain. Skin: The skin is warm and dry and skin color reflects adequate perfusion. HEENT: The head is normocephalic and atraumatic. The pupils are equal and reactive. The conjunctivae are clear and without drainage. Nares are patent and without drainage. Mouth reveals moist mucous membranes and the throat is without erythema and exudate. The external ears are intact. The ear canals are patent and without drainage. The tympanic membranes are intact. Neck: the neck is supple with full range of motion and non-tender. There are no carotid bruits. There is no neck vein distension. Respiratory: Chest is non-tender. Lungs are clear to auscultation and breath sounds are symmetrical and equal. Cardiovascular: Heart is regular rate and rhythm. There is no murmur or rub auscultated. There is no peripheral edema and pulses are symmetrical and equal. Abdomen: The abdomen is soft and non-tender. There are normal bowel sounds heard in all four quadrants and there is no organomegaly palpated. Musculoskeletal: There is no back tenderness noted. Extremities are non-tender with full range of motion. There is good capillary refill. There is no peripheral edema or calf tenderness elicited. Neurological: Patient is alert and oriented to person, place and time. The patient has symmetrical motor strength in all four extremities. Cranial nerves are grossly intact. Deep tendon reflexes are symmetrical and equal in all four extremities. Psychiatric: The patient has an appropriate affect and does not exhibit any anxiety or depression. Triage Information Reviewed: Yes Vital Signs On Initial Exam: Initial Vitals Temp Pulse Resp BP Pulse Ox 97.7 F 129 15 145/101 95 01/10/18 17:18 01/10/18 17:18 01/10/18 17:18 01/10/18 17:18 01/10/18 17:18 Vital Signs Reviewed: Yes Diagnostics - Vital Signs Vital Signs Temp Pulse Resp BP Pulse Ox 01/10/18 20:00 93 16 127/83 96 01/10/18 19:30 126/75 01/10/18 19:25 127 20 125/83 95 01/10/18 19:00 126 16 123/90 93 01/10/18 18:30 90 26 98/84 93 01/10/18 18:02 129 27 168/119 95 01/10/18 18:00 130 20 94 01/10/18 17:30 131 17 144/112 96 01/10/18 17:20 86 20 96 01/10/18 17:18 97.7 F 129 15 145/101 95 - Laboratory Lab Results: Lab Results 01/10/18 01/10/18 01/10/18 Range/Units 17:48 17:48 17:48 WBC 7.9 (3.5-10.8) 10^3/ul RBC 4.85 (4.0-5.4) 10^6/ul Hgb 14.3 (14.0-18.0) g/dl Hct 44 (42-52) % MCV 91 (80-94) fL MCH 30 (27-31) pg MCHC 32 (31-36) g/dl RDW 16 H (10.5-15) % Plt Count 256 (150-450) 10^3/ul MPV 8 (7.4-10.4) um3 Neut % (Auto) 65.4 (38-83) % Lymph % (Auto) 24.1 L (25-47) % [place] % (Auto) 6.7 (0-7) % Eos % (Auto) 2.8 (0-6) % Baso % (Auto) 1.0 (0-2) % Absolute Neuts (auto) 5.2 (1.5-7.7) 10^3/ul Absolute Lymphs (auto) 1.9 (1.0-4.8) 10^3/ul Absolute Monos (auto) 0.5 (0-0.8) 10^3/ul Absolute Eos (auto) 0.2 (0-0.6) 10^3/ul Absolute Basos (auto) 0.1 (0-0.2) 10^3/ul Absolute Nucleated RBC 0 10^3/ul Nucleated RBC % 0 INR (Anticoag Therapy) (0.77-1.02) Sodium 134 (133-145) mmol/L Potassium 4.2 (3.5-5.0) mmol/L Chloride 101 (101-111) mmol/L Carbon Dioxide 24 (22-32) mmol/L Anion Gap 9 (2-11) mmol/L BUN 10 (6-24) mg/dL Creatinine 0.90 (0.67-1.17) mg/dL Est GFR ( Amer) 110.3 (>60) Est GFR (Non-Af Amer) 85.8 (>60) BUN/Creatinine Ratio 11.1 (8-20) Glucose 315 H (70-100) mg/dL Lactic Acid (0.5-2.0) mmol/L Calcium 9.0 (8.6-10.3) mg/dL Magnesium 1.8 L (1.9-2.7) mg/dL Total Bilirubin 0.30 (0.2-1.0) mg/dL AST 15 (13-39) U/L ALT 14 (7-52) U/L Alkaline Phosphatase 63 (34-104) U/L Troponin I 0.01 (<0.04) ng/mL B-Natriuretic Peptide 209 H ( - 100) pg/mL Total Protein 6.1 L (6.4-8.9) g/dL Albumin 3.3 (3.2-5.2) g/dL Globulin 2.8 (2-4) g/dL Albumin/Globulin Ratio 1.2 (1-3) TSH 1.50 (0.34-5.60) mcIU/mL 01/10/18 01/10/18 Range/Units 17:48 17:58 WBC (3.5-10.8) 10^3/ul RBC (4.0-5.4) 10^6/ul Hgb (14.0-18.0) g/dl Hct (42-52) % MCV (80-94) fL MCH (27-31) pg MCHC (31-36) g/dl RDW (10.5-15) % Plt Count (150-450) 10^3/ul MPV (7.4-10.4) um3 Neut % (Auto) (38-83) % Lymph % (Auto) (25-47) % [place] % (Auto) (0-7) % Eos % (Auto) (0-6) % Baso % (Auto) (0-2) % Absolute Neuts (auto) (1.5-7.7) 10^3/ul Absolute Lymphs (auto) (1.0-4.8) 10^3/ul Absolute Monos (auto) (0-0.8) 10^3/ul Absolute Eos (auto) (0-0.6) 10^3/ul Absolute Basos (auto) (0-0.2) 10^3/ul Absolute Nucleated RBC 10^3/ul Nucleated RBC % INR (Anticoag Therapy) 0.91 (0.77-1.02) Sodium (133-145) mmol/L Potassium (3.5-5.0) mmol/L Chloride (101-111) mmol/L Carbon Dioxide (22-32) mmol/L Anion Gap (2-11) mmol/L BUN (6-24) mg/dL Creatinine (0.67-1.17) mg/dL Est GFR ( Amer) (>60) Est GFR (Non-Af Amer) (>60) BUN/Creatinine Ratio (8-20) Glucose (70-100) mg/dL Lactic Acid 2.9 H* (0.5-2.0) mmol/L Calcium (8.6-10.3) mg/dL Magnesium (1.9-2.7) mg/dL Total Bilirubin (0.2-1.0) mg/dL AST (13-39) U/L ALT (7-52) U/L Alkaline Phosphatase (34-104) U/L Troponin I (<0.04) ng/mL B-Natriuretic Peptide ( - 100) pg/mL Total Protein (6.4-8.9) g/dL Albumin (3.2-5.2) g/dL Globulin (2-4) g/dL Albumin/Globulin Ratio (1-3) TSH (0.34-5.60) mcIU/mL Result Diagrams: 01/10/18 17:48 01/10/18 17:48 Lab Statement: Any lab studies that have been ordered have been reviewed, and results considered in the medical decision making process. - Radiology CXR Xray Interpretation: No Acute Changes - NO ACUTE PROCESS Radiology Interpretation Completed By: Radiologist - ED PHYSICIAN REVIEWS AND AGREES - EKG 1 EKG Interpretation: 17:49 - Atrial flutter with 2:1 block Chest Pain Course/Dx - Course Course Of Treatment: Mr. Lagunas reports that he was unable to get his medications when he was D/C'd from the hospital. He F/U'd up with his PMD on Wednesday and was told to come back again today. Today he was found to be in asymptomatic Atrial Flutter with RVR and sent to the ED. We tried IV metoprolol hoping to slow him which worked only transiently. He waas then placed on cardizem. - Diagnoses Provider Diagnoses: Atrial flutter with rapid ventricular response - Provider Notifications Discussed Care Of Patient With: Torres Shi Time Discussed With Above Provider: 20:30 - Critical Care Time Critical Care Time: 30-74 min Discharge - Discharge Plan Condition: Stable Disposition: ADMITTED TO [facility] documentation as recorded by the Rosalina ramirez Edward accurately reflects the service I personally performed and the decisions made by me, Gian Ashby MD.
[2018-01-10] MEDS: Famotidine TAB* 20 MG PO SCH (21:57)
[2018-01-10] MEDS: Carbidopa/Levodop 10/100 MG TAB(*) PO SCH (21:57)
[2018-01-10] MEDS: Gabapentin CAP(*) 300 MG PO SCH ×2 (21:58)
[2018-01-10] MEDS: HYDROcodone/ACETAMIN 5-325 MG* 1 TAB PO PRN (21:58)
[2018-01-10] MEDS: QUEtiapine TAB* 25 MG PO SCH (21:59)
[2018-01-10] MEDS: Insulin GLARGINE(*) 1 UNITS UNIT SUBCUT SCH (21:59)
[2018-01-10] MEDS: Metoprolol Tartrate TAB* 25 MG PO SCH (21:59)
[2018-01-11] MEDS: Diltiazem TAB* 60 MG PO SCH ×4 (01:28→17:26)
--- NOTE | 2018-01-11 04:05 | HP ---
CC: [facility] * HISTORY AND PHYSICAL: DATE OF ADMISSION: 01/10/18 PRIMARY CARE PROVIDER: [facility] in [place]. ATTENDING PROVIDER: Dr. Shi * (DICTATED BY JORDAN ERNANDEZ) CHIEF COMPLAINT: 1. Fast heart rate. 2. Chest discomfort. HISTORY OF PRESENT ILLNESS: Mr. Lagunas is a 62-year-old male patient, who was recently just here in the hospital. He was discharged about 6 days ago. Found to be in AFib with RVR. He was heme-positive for guaiac. He underwent EGD, which was unremarkable, but anticoagulation was still forego because of the concern possibly of a slower bleed; nonetheless, he was discharged. He has multiple other medical problems. He is a diabetic, he has COPD, BERNABE. He has a history of tobacco abuse, GERD, chronic back pain, Parkinson's, hyperlipidemia, hypertension, neuropathy, COPD, and TIAs in the past. He was at his PCP today and they noted that when he got there, he had an elevated heart rate in the 130s to 120s. He said he had not taken his medications. He was unable to get them. He said that his pharmacies had been switched. He said that he did have some sharp pain today at the doctor's office. He said he walked to the office. When he walked to the office, he had no chest pain. He actually had some lower leg pain which made him stop, which was pretty common for him. He denied having any worsening shortness of breath and he says he could not feel the palpitations. He came into the ED today. He was given diltiazem IV and in addition to this, Mesfin and we were asked to evaluate for admission due to the chest pain, the fact that he had an elevated heart rate. He was found to be in AFib again. He denies any recent vomiting. No diarrhea. He did admit to having some nausea. He denied having any presyncopal episodes or seizure activities. PAST MEDICAL HISTORY: Significant for: 1. CAD. 2. TIA. 3. COPD. 4. Diabetes. 5. Neuropathy. 6. Hypertension. 7. Hyperlipidemia. 8. Parkinson's. 9. Chronic back pain. 10. GERD. 11. Tobacco use. 12. BERNABE. 13. AFib. PAST SURGICAL HISTORY: He has had neck surgery, he has had an appendectomy. HOME MEDICATIONS: Include: 1. Nicotine patch 14 mg transdermally daily. 2. Lopressor 25 mg p.o. b.i.d. 3. Flexeril 10 mg p.o. t.i.d. as needed. 4. Seroquel 25 mg at bedtime. 5. Strawn 1 tablet every 3 hours as needed. 6. Diltiazem CD 180 mg daily. 7. Aleve 220 mg p.o. every 8 hours. 8. Nasonex 2 sprays both nares daily. 9. Zyrtec 10 mg daily. 10. Simethicone 128 mg p.o. every 8 hours. 11. Lidocaine ointment 2 to 3 g topically 4 times a day. 12. Lantus 25 units subcu at bedtime. 13. Voltaren gel 2 to 3 g topically 4 times a day as needed. 14. Sinemet 1 tablet daily. 15. Sinemet 1 tablet p.o. twice a day. 16. Benadryl 50 mg p.o. b.i.d. 17. Gabapentin 300 mg p.o. b.i.d. 18. Gabapentin 600 mg p.o. at bedtime. 19. Glucophage 1000 mg p.o. b.i.d. 20. Pepcid 40 mg p.o. b.i.d. 21. Cymbalta 30 mg p.o. daily. 22. Hydrochlorothiazide 25 mg daily. 23. Prilosec 20 mg daily. 24. Patanol 1 drop both eyes daily. 25. Spiriva 1 capsule inhaled daily. 26. Pravachol 10 mg p.o. daily. ALLERGIES TO MEDICATIONS: Include ASPIRIN. FAMILY HISTORY: Both his parents had a history of CAD. SOCIAL HISTORY: He is about a pack a day smoker. He does drink alcohol. He does smoke marijuana. He used cocaine last week. He says he has not used any since being discharged here. Surrogate decision maker is his health worker, Rojelio. REVIEW OF SYSTEMS: There is no documented fever. He denied having any significant weight change. There was no double vision. He denies having any ear discharge. There is no rhinorrhea. No sore throat, no thyroid enlargement. He did admit to having sharp stabbing chest pain in his PCP's office. He denies having any abdominal pain. Denies having any nausea. No vomiting, no dysuria, no frequency. There was no loss of consciousness, no pruritus, and no skin ulcerations. Review of 14 systems completed, all others negative. PHYSICAL EXAMINATION GENERAL: At this time, Mr. Edin Lagunas is a 62-year-old male patient. He is morbidly obese. He is sitting in the ED stretcher. He does not appear to be in any acute distress. VITAL SIGNS: Blood pressure 127/83 with a pulse of 116, respirations 16, O2 sat 96%, temperature 97.7. His heart rate now is hovering right around 80. HEENT: Head atraumatic and normocephalic. Eyes: EOMs intact. Sclerae anicteric and not pale. Throat: Oral mucosa appears to be moist. No oropharyngeal erythema. NECK: Supple. LUNGS: Clear to auscultation. No wheezes, rales, or rhonchi. HEART: Sounds S1, S2. Irregularly irregular rate. No murmurs, rubs, or gallops. ABDOMEN: Soft, flat, and nontender. Bowel sounds were present. EXTREMITIES: Pulses were 2+ throughout. He is moving all 4 extremities with 5/ 5 strength. NEUROLOGIC: He is awake, alert, and oriented x3. Tongue is midline. Operational Risk Consultant are equal. No gross focal deficits. SKIN: Intact. LABORATORY DATA: WBC 7.9, RBC of 4.85, hemoglobin 14.3, hematocrit of 44, platelet count 256. INR 0.91. Sodium was 134, potassium 4.2, chloride of 101, carbon dioxide 24, BUN 10, creatinine of 0.90, glucose of 315, lactic 2.9, calcium 9, mag 1.8, total bili 0.3, AST 15, ALT 14, alk phos 63, troponin 0.01. BNP of 209, TSH of 1.05. He did have a chest x-ray obtained today, which impression read no evidence for an acute disease. He had an EKG obtained today, actually appears to be Aflutter with a 2:1 block, rate of 127. Reviewed to the previous EKG, appears to be similar except the rate previously was 143. Old medical records were reviewed. He did have an echo done, EF was greater than 65%. ASSESSMENT AND PLAN: Mr. Lagunas is a 62-year-old male patient coming into the ED today with complaints of a rapid heart rate, found to be at his PCP's office. We were asked to evaluate for admission. He will be admitted under observation status for: 1. Atrial fibrillation with RVR. At this point, his heart rate is hovering right around 100, was in the 80s. I am going to give him p.o. diltiazem. I am going to increase his dose to diltiazem 60 q.6 immediate release. We will continue his beta- blockade and we will continue to follow him. I am holding off on anticoagulation at this point given the fact he was heme-positive for stools last time. He certainly should probably be on anticoagulation, but he will need a more thorough GI workup according to the last discharge which was to be done in the outpatient setting. We will keep him on telemetry. 2. Chest pain. This could be related to cocaine use. Again, I am going to get his urine tox. In addition to this, I will also cycle his troponin. He might need a stress test outpatient. 3. History of coronary artery disease. He is on beta-elton and statin, continue. He is allergic to aspirin. 4. History of transient ischemic attack. Continue statin therapy and secondary prevention. 5. Chronic obstructive pulmonary disease. I have ordered Spiriva and p.r.n. albuterol. 6. Diabetes. Lantus and lispro sliding scale have been ordered. 7. Neuropathy. Continue gabapentin. 8. Hypertension. Continue meds as prescribed. 9. Hyperlipidemia. Continue statin therapy. 10. Parkinson's. Continue his carbidopa levodopa. 11. Chronic back pain. I would recommend avoiding NSAIDs. I have continued him on his Strawn and p.r.n. Tylenol. 12. Gastroesophageal reflux disease. Continue PPI therapy and Pepcid therapy. 13. Tobacco abuse. I have encouraged cessation. 14. Obstructive sleep apnea. We need to clarify with him if he is wearing a mask, which will be ordered if he is. 15. DVT prophylaxis. SCDs will be ordered given the history of heme-positive stools. 16. Fluids, electrolytes, and nutrition. He can have a consistent carb diet. 17. Code status. Full code. TIME SPENT: Time spent on the admission 60 minutes, greater than half the time was spent [id number] with the patient obtaining my history and physical. Other half the time going over the plan of care with the patient and implementing the plan of care. I did discuss the plan of care with my attending Dr. Shi, who is in agreement. [place] BOJ[place]QUE[place] [id number]/[facility] #: [id number] CHARLIE
[2018-01-11] MEDS: HYDROcodone/ACETAMIN 5-325 MG* 1 TAB PO PRN ×2 (05:45→19:47)
[2018-01-11 07:10] LABS: ABS Basophils 0.1 10^3/ul (0-0.2); ABS Eosinophils 0.2 10^3/ul (0-0.6); ABS Lymphocytes 2.7 10^3/ul (1.0-4.8); ABS Monocytes 0.3 10^3/ul (0-0.8); ABS Neutrophils 2.6 10^3/ul (1.5-7.7); ABS Nucleated RBC 0 10^3/ul; Eosinophil % 2.5 % (0-6); Hematocrit 43 % (42-52); Hemoglobin 13.8 g/dl (14.0-18.0); Lymphocyte % 46.3 % (25-47); Mean Corpuscular HGB Conc 32 g/dl (31-36); Mean Corpuscular Hemoglobin 30 pg (27-31); Mean Corpuscular Volume 94 fL (80-94); Nucleated Red Blood Cells % 0.1; Red Blood Count 4.59 10^6/ul (4.0-5.4); Red Cell Distribution Width 16 % (10.5-15); White Blood Count 5.9 10^3/ul (3.5-10.8)
[2018-01-11 07:23] LABS: EGFR Non-African American 84.7 (>60)
[2018-01-11 07:29] LABS: Platelet Count Platelets clumped. 10^3/ul (150-450)
[2018-01-11] MEDS: Famotidine TAB* 20 MG PO SCH ×2 (08:22→20:52)
[2018-01-11] MEDS: DULoxetine DR CAP* 30 MG CAP.DR PO SCH (08:22)
[2018-01-11] MEDS: CMCS: Pravastatin (NF) 20 MG TAB PO SCH (08:22)
[2018-01-11] MEDS: Metoprolol Tartrate TAB* 25 MG PO SCH ×2 (08:22→20:53)
[2018-01-11] MEDS: Omeprazole CAP* 20 MG PO SCH (08:22)
[2018-01-11] MEDS: Carbidopa/Levodop 10/100 MG TAB(*) PO SCH ×2 (08:22→20:52)
[2018-01-11] MEDS: Gabapentin CAP(*) 300 MG PO SCH ×3 (08:23→20:52)
[2018-01-11] MEDS: Carbidopa/Levodop 25/250MG TAB(*) PO SCH (08:23)
[2018-01-11] MEDS: Insulin LISPRO* 1 UNITS UNIT SUBCUT SCH ×3 (08:23→17:26)
[2018-01-11] MEDS ORDERED: Spiriva Inhaler DEVICE* 1 EACH DEVICE INH ONE (09:00)
[2018-01-11] MEDS: Tiotropium CAP.INH* CAP.INH/18 MCG (USE ORDER SET !) INH SCH (09:03)
[2018-01-11] MEDS: Acetaminophen TAB* 325 MG PO PRN (09:39)
--- NOTE | 2018-01-11 13:48 | PN ---
Subjective Date of Service: 01/11/18 Interval History: C/o intermittent chest pain, left side of his chest. denies shortness of breath or abd pain. Denies any suicidal or homicidal thoughts. states that he feels a little depressed but has been going to mental health for help with his depression. denies n/v/d Family History: Unchanged from Admission Social History: Unchanged from Admission Past Medical History: Unchanged from Admission Objective Active Medications: Acetaminophen (Tylenol Tab*) 650 mg PO Q4H PRN PRN Reason: FEVER/PAIN Last Admin: 01/11/18 09:39 Dose: 650 mg Hydrocodone Bitart/Acetaminophen ([place] 5-325 Tab*) 1 tab PO Q3H PRN PRN Reason: PAIN - MODERATE Last Admin: 01/11/18 05:45 Dose: 1 tab Albuterol (Ventolin 2.5 Mg/3 Ml Neb.Miriam*) 2.5 mg INH Q2H PRN PRN Reason: SOB/WHEEZING Last Admin: 01/11/18 02:48 Dose: 2.5 mg Carbidopa/Levodopa (Sinemet 10/100 Tab(*)) 1 tab PO BID [facility] Last Admin: 01/11/18 08:22 Dose: 1 tab Carbidopa/Levodopa (Sinemet 25/250 Tab(*)) 1 tab PO DAILY [facility] Last Admin: 01/11/18 08:23 Dose: 1 tab Cyclobenzaprine HCl (Flexeril Tab*) 10 mg PO TID PRN PRN Reason: muscle spasms Last Admin: 01/11/18 08:23 Dose: 10 mg Dextrose (D50w Syringe 50 Ml*) 12.5 gm IV PUSH .FOR FS < 60 - SS PRN PRN Reason: FS < 60 Diltiazem HCl (Cardizem Tab*) 60 mg PO Q6HR [facility] Last Admin: 01/11/18 12:35 Dose: 60 mg Duloxetine HCl (Cymbalta Cap*) 30 mg PO DAILY [facility] Last Admin: 01/11/18 08:22 Dose: 30 mg Famotidine (Pepcid Tab*) 40 mg PO BID [facility] Last Admin: 01/11/18 08:22 Dose: 40 mg Gabapentin (Neurontin Cap(*)) 300 mg PO BID [facility] Last Admin: 01/11/18 08:23 Dose: 300 mg Gabapentin (Neurontin Cap(*)) 600 mg PO BEDTIME [facility] Last Admin: 01/10/18 21:58 Dose: 600 mg Insulin Glargine (Lantus(*)) 25 units SUBCUT BEDTIME [facility] Last Admin: 01/10/18 21:59 Dose: 25 units Insulin Human Lispro (Humalog*) 0 units SUBCUT AC [facility] PRN Reason: Protocol Last Admin: 01/11/18 12:35 Dose: 6 unit Metoprolol Tartrate (Lopressor Tab*) 25 mg PO BID [facility] Last Admin: 01/11/18 08:22 Dose: 25 mg Omeprazole (Prilosec Cap*) 20 mg PO DAILY [facility] Last Admin: 01/11/18 08:22 Dose: 20 mg Ondansetron HCl (Zofran Inj*) 4 mg IV Q6H PRN PRN Reason: NAUSEA Pravastatin Sodium (Pravachol (Nf)) 10 mg PO DAILY [facility] Last Admin: 01/11/18 08:22 Dose: 10 mg Quetiapine Fumarate (Seroquel Tab*) 25 mg PO BEDTIME [facility] Last Admin: 01/10/18 21:59 Dose: 25 mg Tiotropium [place] (Spiriva Cap.Inh*) 1 cap INH DAILY [facility] Last Admin: 01/11/18 09:03 Dose: 1 cap Vital Signs - 8 hr 01/11/18 01/11/18 01/11/18 07:36 08:23 11:07 Temperature 98.7 F 97.6 F Pulse Rate 65 64 Respiratory 15 16 20 Rate Blood Pressure 140/74 120/67 (mmHg) O2 Sat by Pulse 98 96 Oximetry Oxygen Devices in Use Now: None Appearance: appears comfortable sitting on the bed, obese Eyes: No Scleral Icterus Ears/Nose/Mouth/Throat: Clear Oropharnyx, Mucous Membranes Moist Neck: NL Appearance and Movements; NL JVP, Trachea Midline Respiratory: Symmetrical Chest Expansion and Respiratory Effort, Clear to Auscultation Cardiovascular: NL Sounds; No Murmurs; No JVD, No Edema Abdominal: NL Sounds; No Tenderness; No Distention Extremities: No Edema, No Clubbing, Cyanosis Skin: No Rash or Ulcers Neurological: Alert and Oriented x 3 Nutrition: Taking PO's Result Diagrams: 01/11/18 06:45 01/11/18 06:45 Additional Lab and Data: Lab Results 01/10/18 01/10/1818 Range/Units 17:48 17:48 17:48 WBC 7.9 (3.5-10.8) 10^3/ul RBC 4.85 (4.0-5.4) 10^6/ul Hgb 14.3 (14.0-18.0) g/dl Hct 44 (42-52) % MCV 91 (80-94) fL MCH 30 (27-31) pg MCHC 32 (31-36) g/dl RDW 16 H (10.5-15) % Plt Count 256 (150-450) 10^3/ul MPV 8 (7.4-10.4) um3 Neut % (Auto) 65.4 (38-83) % Lymph % (Auto) 24.1 L (25-47) % [place] % (Auto) 6.7 (0-7) % Eos % (Auto) 2.8 (0-6) % Baso % (Auto) 1.0 (0-2) % Absolute Neuts (auto) 5.2 (1.5-7.7) 10^3/ul Absolute Lymphs (auto) 1.9 (1.0-4.8) 10^3/ul Absolute Monos (auto) 0.5 (0-0.8) 10^3/ul Absolute Eos (auto) 0.2 (0-0.6) 10^3/ul Absolute Basos (auto) 0.1 (0-0.2) 10^3/ul Absolute Nucleated RBC 0 10^3/ul Nucleated RBC % 0 INR (Anticoag Therapy) (0.77-1.02) Sodium 134 (133-145) mmol/L Potassium 4.2 (3.5-5.0) mmol/L Chloride 101 (101-111) mmol/L Carbon Dioxide 24 (22-32) mmol/L Anion Gap 9 (2-11) mmol/L BUN 10 (6-24) mg/dL Creatinine 0.90 (0.67-1.17) mg/dL Est GFR ( Amer) 110.3 (>60) Est GFR (Non-Af Amer) 85.8 (>60) BUN/Creatinine Ratio 11.1 (8-20) Glucose 315 H (70-100) mg/dL Lactic Acid (0.5-2.0) mmol/L Calcium 9.0 (8.6-10.3) mg/dL Magnesium 1.8 L (1.9-2.7) mg/dL Total Bilirubin 0.30 (0.2-1.0) mg/dL AST 15 (13-39) U/L ALT 14 (7-52) U/L Alkaline Phosphatase 63 (34-104) U/L Troponin I 0.01 (<0.04) ng/mL B-Natriuretic Peptide 209 H ( - 100) pg/mL Total Protein 6.1 L (6.4-8.9) g/dL Albumin 3.3 (3.2-5.2) g/dL Globulin 2.8 (2-4) g/dL Albumin/Globulin Ratio 1.2 (1-3) TSH 1.50 (0.34-5.60) mcIU/mL 01/10/18 01/10/18 Range/Units 17:48 17:58 WBC (3.5-10.8) 10^3/ul RBC (4.0-5.4) 10^6/ul Hgb (14.0-18.0) g/dl Hct (42-52) % MCV (80-94) fL MCH (27-31) pg MCHC (31-36) g/dl RDW (10.5-15) % Plt Count (150-450) 10^3/ul MPV (7.4-10.4) um3 Neut % (Auto) (38-83) % Lymph % (Auto) (25-47) % [place] % (Auto) (0-7) % Eos % (Auto) (0-6) % Baso % (Auto) (0-2) % Absolute Neuts (auto) (1.5-7.7) 10^3/ul Absolute Lymphs (auto) (1.0-4.8) 10^3/ul Absolute Monos (auto) (0-0.8) 10^3/ul Absolute Eos (auto) (0-0.6) 10^3/ul Absolute Basos (auto) (0-0.2) 10^3/ul Absolute Nucleated RBC 10^3/ul Nucleated RBC % INR (Anticoag Therapy) 0.91 (0.77-1.02) Sodium (133-145) mmol/L Potassium (3.5-5.0) mmol/L Chloride (101-111) mmol/L Carbon Dioxide (22-32) mmol/L Anion Gap (2-11) mmol/L BUN (6-24) mg/dL Creatinine (0.67-1.17) mg/dL Est GFR ( Amer) (>60) Est GFR (Non-Af Amer) (>60) BUN/Creatinine Ratio (8-20) Glucose (70-100) mg/dL Lactic Acid 2.9 H* (0.5-2.0) mmol/L Calcium (8.6-10.3) mg/dL Magnesium (1.9-2.7) mg/dL Total Bilirubin (0.2-1.0) mg/dL AST (13-39) U/L ALT (7-52) U/L Alkaline Phosphatase (34-104) U/L Troponin I (<0.04) ng/mL B-Natriuretic Peptide ( - 100) pg/mL Total Protein (6.4-8.9) g/dL Albumin (3.2-5.2) g/dL Globulin (2-4) g/dL Albumin/Globulin Ratio (1-3) TSH (0.34-5.60) mcIU/mL Assess/Plan/Problems-Billing Assessment: Mr. Lagunas is a 62 y.o male that presented to the ER yesterday from his PCP office with tachycardia. Patient was recently admitted for Afib with RVR and discharged 6 days ago. In the ER he was found to be in Afib , was started on cardizem and his home medications were restarted. - Patient Problems (1) Chest pain Current Visit: Yes Status: Acute Code(s): R07.9 - CHEST PAIN, UNSPECIFIED SNOMED Code(s): 44533940 Comment: Chest pain~ worse with walking up stairs troponins~ negative 0.01,0.02,0.03 reports recent cocaine use on wednesday will do nuclear stress in AM (2) Atrial fibrillation with rapid ventricular response Current Visit: No Status: Acute Code(s): I48.91 - UNSPECIFIED ATRIAL FIBRILLATION SNOMED Code(s): 551304863853530 Comment: Pt is asymptomatic.~ continues to use Cocaine Patient had krissy positive stool last admission 01/01/18 ~ outpt GI work up pending anticoagulation to his PCP pending completion of GI workup. Will repeat stool guaiac Continue metoprolol ~ HR 65 Will change cardizem to cardizem CD 180mg daily (3) COPD (chronic obstructive pulmonary disease) Current Visit: No Status: Acute Code(s): J44.9 - CHRONIC OBSTRUCTIVE PULMONARY DISEASE, UNSPECIFIED SNOMED Code(s): 75340742 Comment: not in exacerbation cont spiriva, albuterol nebs prn (4) Morbid obesity Current Visit: No Status: Acute Code(s): E66.01 - MORBID (SEVERE) OBESITY DUE TO EXCESS CALORIES SNOMED Code(s): 228958090 Comment: BMI 55. (5) Chronic back pain Current Visit: No Status: Chronic Code(s): M54.9 - DORSALGIA, UNSPECIFIED; G89.29 - OTHER CHRONIC PAIN SNOMED Code(s): 264695632 Comment: Continue home neurotin, cyclobenzaprine, prn hydrocodone-APAP (6) Diabetes mellitus Current Visit: No Status: Chronic Code(s): E11.9 - TYPE 2 DIABETES MELLITUS WITHOUT COMPLICATIONS SNOMED Code(s): 50868137 Comment: Lispro sliding scale lantus Accu checks AC (7) GERD (gastroesophageal reflux disease) Current Visit: No Status: Chronic Code(s): K21.9 - GASTRO-ESOPHAGEAL REFLUX DISEASE WITHOUT ESOPHAGITIS SNOMED Code(s): 553631784 Comment: stable~ continue omeprazole (8) Peripheral neuropathy Current Visit: No Status: Chronic Code(s): G62.9 - POLYNEUROPATHY, UNSPECIFIED SNOMED Code(s): 730155172 Comment: Continue gabapentin. (9) Drug abuse Current Visit: Yes Status: Acute Code(s): F19.10 - OTHER PSYCHOACTIVE SUBSTANCE ABUSE, UNCOMPLICATED SNOMED Code(s): 11705366 Comment: Patient admits to Cocaine use on wednesday States used Marijuana yesterday (10) Depression Current Visit: Yes Status: Acute Code(s): F32.9 - MAJOR DEPRESSIVE DISORDER , SINGLE EPISODE, UNSPECIFIED SNOMED Code(s): 34937601 Comment: continue seroquel and cymbalta denies current suicdal or homicidal thoughts ~ states is using outpateint counseling at mental [facility] and that is helping him now (11) DVT prophylaxis Current Visit: No Status: Acute Code(s): UDA5096 - SNOMED Code(s): 767194434 Comment: no anticoagulation due to GI bleed, SCD's (12) Full code status Current Visit: Yes Status: Acute Code(s): Z78.9 - OTHER SPECIFIED HEALTH STATUS SNOMED Code(s): 887559962 Status and Disposition: nuclear stress in the AM ~ will discharge if negative
[2018-01-11] MEDS: Ondansetron INJ* 2 MG/ML VIAL IV PRN (19:48)
[2018-01-11] MEDS: Insulin GLARGINE(*) 1 UNITS UNIT SUBCUT SCH (20:53)
[2018-01-11] MEDS: QUEtiapine TAB* 25 MG PO SCH (20:53)
--- NOTE | 2018-01-12 05:46 | PN ---
Progress Note - Progress Note Date of Service: 01/12/18 Note: Nursing called reporting a 6s asymptomatic conversion pause from AFIB to sinus sera in the 30-40s. Mr Lagunas was easily arousable and denied complaint. ECG confirmed conversion to sinus rhythm. Advised to call if HR sustained below 45 > 15 minutes or symptomatic.
[2018-01-12] MEDS: HYDROcodone/ACETAMIN 5-325 MG* 1 TAB PO PRN ×3 (07:46→20:50)
[2018-01-12] MEDS: Tiotropium CAP.INH* CAP.INH/18 MCG (USE ORDER SET !) INH SCH (08:27)
[2018-01-12] MEDS: Gabapentin CAP(*) 300 MG PO SCH ×3 (08:53→20:50)
[2018-01-12] MEDS: Carbidopa/Levodop 25/250MG TAB(*) PO SCH (08:53)
[2018-01-12] MEDS: Carbidopa/Levodop 10/100 MG TAB(*) PO SCH ×2 (08:53→20:50)
[2018-01-12] MEDS: Famotidine TAB* 20 MG PO SCH ×2 (08:53→20:50)
[2018-01-12] MEDS: DULoxetine DR CAP* 30 MG CAP.DR PO SCH (08:54)
[2018-01-12] MEDS: Omeprazole CAP* 20 MG PO SCH (08:54)
[2018-01-12] MEDS ORDERED: Diltiazem CD CAP* 180 MG PO SCH (09:00)
--- NOTE | 2018-01-12 10:37 | PN ---
Subjective Date of Service: 01/12/18 Interval History: Continue to c/o occasional chest pain, states that he is currently chest pain free. Denies shortness of breath or abd pain. Denies n/v/d. Family History: Unchanged from Admission Social History: Unchanged from Admission Past Medical History: Unchanged from Admission Objective Active Medications: Acetaminophen (Tylenol Tab*) 650 mg PO Q4H PRN PRN Reason: FEVER/PAIN Last Admin: 01/11/18 09:39 Dose: 650 mg Hydrocodone Bitart/Acetaminophen ([place] 5-325 Tab*) 1 tab PO Q3H PRN PRN Reason: PAIN - MODERATE Last Admin: 01/12/18 07:46 Dose: 1 tab Albuterol (Ventolin 2.5 Mg/3 Ml Neb.Miriam*) 2.5 mg INH Q2H PRN PRN Reason: SOB/WHEEZING Last Admin: 01/11/18 02:48 Dose: 2.5 mg Carbidopa/Levodopa (Sinemet 10/100 Tab(*)) 1 tab PO BID [facility] Last Admin: 01/12/18 08:53 Dose: 1 tab Carbidopa/Levodopa (Sinemet 25/250 Tab(*)) 1 tab PO DAILY [facility] Last Admin: 01/12/18 08:53 Dose: 1 tab Cyclobenzaprine HCl (Flexeril Tab*) 10 mg PO TID PRN PRN Reason: muscle spasms Last Admin: 01/11/18 08:23 Dose: 10 mg Dextrose (D50w Syringe 50 Ml*) 12.5 gm IV PUSH .FOR FS < 60 - SS PRN PRN Reason: FS < 60 Diltiazem HCl (Cardizem Cd Cap*) 180 mg PO DAILY [facility] Duloxetine HCl (Cymbalta Cap*) 30 mg PO DAILY [facility] Last Admin: 01/12/18 08:54 Dose: 30 mg Famotidine (Pepcid Tab*) 40 mg PO BID [facility] Last Admin: 01/12/18 08:53 Dose: 40 mg Gabapentin (Neurontin Cap(*)) 300 mg PO BID [facility] Last Admin: 01/12/18 08:53 Dose: 300 mg Gabapentin (Neurontin Cap(*)) 600 mg PO BEDTIME [facility] Last Admin: 01/11/18 20:52 Dose: 600 mg Insulin Glargine (Lantus(*)) 25 units SUBCUT BEDTIME [facility] Last Admin: 01/11/18 20:53 Dose: 25 units Insulin Human Lispro (Humalog*) 0 units SUBCUT AC [facility] PRN Reason: Protocol Last Admin: 01/11/18 17:26 Dose: 6 unit Metoprolol Tartrate (Lopressor Tab*) 25 mg PO BID [facility] Last Admin: 01/11/18 20:53 Dose: 25 mg Omeprazole (Prilosec Cap*) 20 mg PO DAILY [facility] Last Admin: 01/12/18 08:54 Dose: 20 mg Ondansetron HCl (Zofran Inj*) 4 mg IV Q6H PRN PRN Reason: NAUSEA Last Admin: 01/11/18 19:48 Dose: 4 mg Pravastatin Sodium (Pravachol (Nf)) 10 mg PO DAILY [facility] Last Admin: 01/11/18 08:22 Dose: 10 mg Quetiapine Fumarate (Seroquel Tab*) 25 mg PO BEDTIME [facility] Last Admin: 01/11/18 20:53 Dose: 25 mg Tiotropium [place] (Spiriva Cap.Inh*) 1 cap INH DAILY [facility] Last Admin: 01/12/18 08:27 Dose: 1 cap Vital Signs - 8 hr 01/12/18 01/12/18 01/12/18 03:25 07:46 07:55 Temperature 97.9 F 97.5 F Pulse Rate 79 43 Respiratory 18 16 18 Rate Blood Pressure 149/71 117/72 (mmHg) O2 Sat by Pulse 94 94 Oximetry 01/12/18 01/12/18 08:53 08:56 Temperature Pulse Rate 50 Respiratory 16 Rate Blood Pressure (mmHg) O2 Sat by Pulse Oximetry Oxygen Devices in Use Now: None Appearance: appears comfortable sitting on the edge of the bed. Eyes: No Scleral Icterus Ears/Nose/Mouth/Throat: Clear Oropharnyx, Mucous Membranes Moist Neck: NL Appearance and Movements; NL JVP, Trachea Midline Respiratory: Symmetrical Chest Expansion and Respiratory Effort, Clear to Auscultation Cardiovascular: NL Sounds; No Murmurs; No JVD, No Edema Abdominal: NL Sounds; No Tenderness; No Distention, - - obese Extremities: No Clubbing, Cyanosis Skin: No Rash or Ulcers, No Nodules or Sclerosis Neurological: NL Gait Nutrition: Taking PO's Result Diagrams: 01/11/18 06:45 01/11/18 06:45 Additional Lab and Data: Lab Results 01/10/18 01/10/18 01/10/18 Range/Units 17:48 17:48 17:48 WBC 7.9 (3.5-10.8) 10^3/ul RBC 4.85 (4.0-5.4) 10^6/ul Hgb 14.3 (14.0-18.0) g/dl Hct 44 (42-52) % MCV 91 (80-94) fL MCH 30 (27-31) pg MCHC 32 (31-36) g/dl RDW 16 H (10.5-15) % Plt Count 256 (150-450) 10^3/ul MPV 8 (7.4-10.4) um3 Neut % (Auto) 65.4 (38-83) % Lymph % (Auto) 24.1 L (25-47) % [place] % (Auto) 6.7 (0-7) % Eos % (Auto) 2.8 (0-6) % Baso % (Auto) 1.0 (0-2) % Absolute Neuts (auto) 5.2 (1.5-7.7) 10^3/ul Absolute Lymphs (auto) 1.9 (1.0-4.8) 10^3/ul Absolute Monos (auto) 0.5 (0-0.8) 10^3/ul Absolute Eos (auto) 0.2 (0-0.6) 10^3/ul Absolute Basos (auto) 0.1 (0-0.2) 10^3/ul Absolute Nucleated RBC 0 10^3/ul Nucleated RBC % 0 INR (Anticoag Therapy) (0.77-1.02) Sodium 134 (133-145) mmol/L Potassium 4.2 (3.5-5.0) mmol/L Chloride 101 (101-111) mmol/L Carbon Dioxide 24 (22-32) mmol/L Anion Gap 9 (2-11) mmol/L BUN 10 (6-24) mg/dL Creatinine 0.90 (0.67-1.17) mg/dL Est GFR ( Amer) 110.3 (>60) Est GFR (Non-Af Amer) 85.8 (>60) BUN/Creatinine Ratio 11.1 (8-20) Glucose 315 H (70-100) mg/dL Lactic Acid (0.5-2.0) mmol/L Calcium 9.0 (8.6-10.3) mg/dL Magnesium 1.8 L (1.9-2.7) mg/dL Total Bilirubin 0.30 (0.2-1.0) mg/dL AST 15 (13-39) U/L ALT 14 (7-52) U/L Alkaline Phosphatase 63 (34-104) U/L Troponin I 0.01 (<0.04) ng/mL B-Natriuretic Peptide 209 H ( - 100) pg/mL Total Protein 6.1 L (6.4-8.9) g/dL Albumin 3.3 (3.2-5.2) g/dL Globulin 2.8 (2-4) g/dL Albumin/Globulin Ratio 1.2 (1-3) TSH 1.50 (0.34-5.60) mcIU/mL 01/10/18 01/10/18 Range/Units 17:48 17:58 WBC (3.5-10.8) 10^3/ul RBC (4.0-5.4) 10^6/ul Hgb (14.0-18.0) g/dl Hct (42-52) % MCV (80-94) fL MCH (27-31) pg MCHC (31-36) g/dl RDW (10.5-15) % Plt Count (150-450) 10^3/ul MPV (7.4-10.4) um3 Neut % (Auto) (38-83) % Lymph % (Auto) (25-47) % [place] % (Auto) (0-7) % Eos % (Auto) (0-6) % Baso % (Auto) (0-2) % Absolute Neuts (auto) (1.5-7.7) 10^3/ul Absolute Lymphs (auto) (1.0-4.8) 10^3/ul Absolute Monos (auto) (0-0.8) 10^3/ul Absolute Eos (auto) (0-0.6) 10^3/ul Absolute Basos (auto) (0-0.2) 10^3/ul Absolute Nucleated RBC 10^3/ul Nucleated RBC % INR (Anticoag Therapy) 0.91 (0.77-1.02) Sodium (133-145) mmol/L Potassium (3.5-5.0) mmol/L Chloride (101-111) mmol/L Carbon Dioxide (22-32) mmol/L Anion Gap (2-11) mmol/L BUN (6-24) mg/dL Creatinine (0.67-1.17) mg/dL Est GFR ( Amer) (>60) Est GFR (Non-Af Amer) (>60) BUN/Creatinine Ratio (8-20) Glucose (70-100) mg/dL Lactic Acid 2.9 H* (0.5-2.0) mmol/L Calcium (8.6-10.3) mg/dL Magnesium (1.9-2.7) mg/dL Total Bilirubin (0.2-1.0) mg/dL AST (13-39) U/L ALT (7-52) U/L Alkaline Phosphatase (34-104) U/L Troponin I (<0.04) ng/mL B-Natriuretic Peptide ( - 100) pg/mL Total Protein (6.4-8.9) g/dL Albumin (3.2-5.2) g/dL Globulin (2-4) g/dL Albumin/Globulin Ratio (1-3) TSH (0.34-5.60) mcIU/mL Assess/Plan/Problems-Billing Assessment: Mr. Lagunas is a 62 y.o male that presented to the ER yesterday from his PCP office with tachycardia. Patient was recently admitted for Afib with RVR and discharged 6 days ago. In the ER he was found to be in Afib , was started on cardizem and his home medications were restarted. - Patient Problems (1) Chest pain Current Visit: Yes Status: Acute Code(s): R07.9 - CHEST PAIN, UNSPECIFIED SNOMED Code(s): 93748712 Comment: Chest pain~ worse with walking up stairs troponins~ negative 0.01,0.02,0.03 reports recent cocaine use on wednesday Stress part of the Nuclear stress completed today~ resting to be completed tomorrow (2) Atrial fibrillation with rapid ventricular response Current Visit: No Status: Acute Code(s): I48.91 - UNSPECIFIED ATRIAL FIBRILLATION SNOMED Code(s): 028404307113365 Comment: Pt is asymptomatic.~ continues to use Cocaine Patient had krissy positive stool last admission 01/01/18 ~ outpt GI work up pending anticoagulation to his PCP pending completion of GI workup. Will repeat stool guaiac Continue metoprolol ~ HR 65 Converted to NSR during the night ~ currently SR rate of 80 Will D/c cardizem as HR remain in the 50's Placed hold for HR less than 60 on the metoprolol~ may need to decrease the dose of metoprolol. (3) COPD (chronic obstructive pulmonary disease) Current Visit: No Status: Acute Code(s): J44.9 - CHRONIC OBSTRUCTIVE PULMONARY DISEASE, UNSPECIFIED SNOMED Code(s): 54955739 Comment: not in exacerbation cont spiriva, albuterol nebs prn (4) Morbid obesity Current Visit: No Status: Acute Code(s): E66.01 - MORBID (SEVERE) OBESITY DUE TO EXCESS CALORIES SNOMED Code(s): 464243702 Comment: BMI 55. (5) Chronic back pain Current Visit: No Status: Chronic Code(s): M54.9 - DORSALGIA, UNSPECIFIED; G89.29 - OTHER CHRONIC PAIN SNOMED Code(s): 989579910 Comment: Continue home neurotin, cyclobenzaprine, prn hydrocodone-APAP (6) Diabetes mellitus Current Visit: No Status: Chronic Code(s): E11.9 - TYPE 2 DIABETES MELLITUS WITHOUT COMPLICATIONS SNOMED Code(s): 82315639 Comment: Lispro sliding scale lantus Accu checks AC (7) GERD (gastroesophageal reflux disease) Current Visit: No Status: Chronic Code(s): K21.9 - GASTRO-ESOPHAGEAL REFLUX DISEASE WITHOUT ESOPHAGITIS SNOMED Code(s): 322421800 Comment: stable~ continue omeprazole (8) Peripheral neuropathy Current Visit: No Status: Chronic Code(s): G62.9 - POLYNEUROPATHY, UNSPECIFIED SNOMED Code(s): 293159576 Comment: Continue gabapentin. (9) Drug abuse Current Visit: Yes Status: Acute Code(s): F19.10 - OTHER PSYCHOACTIVE SUBSTANCE ABUSE, UNCOMPLICATED SNOMED Code(s): 41081790 Comment: Patient admits to Cocaine use on wednesday States used Marijuana wednesday (10) Depression Current Visit: Yes Status: Acute Code(s): F32.9 - MAJOR DEPRESSIVE DISORDER , SINGLE EPISODE, UNSPECIFIED SNOMED Code(s): 17427900 Comment: continue seroquel and cymbalta denies current suicdal or homicidal thoughts ~ states is using outpateint counseling at mental health and that is helping him now Instructed to inform nursing staff of any needs to see or talk to mental health staff here. Has plans to move to a new apartment soon (11) DVT prophylaxis Current Visit: No Status: Acute Code(s): WBX3337 - SNOMED Code(s): 293059831 Comment: no anticoagulation due to GI bleed, SCD's (12) Full code status Current Visit: Yes Status: Acute Code(s): Z78.9 - OTHER SPECIFIED HEALTH STATUS SNOMED Code(s): 711457797 Status and Disposition: nuclear stress in the AM ~ will discharge when medically stable
[2018-01-12] MEDS ORDERED: Regadenoson* 0.4 MG/5 ML SYRINGE ONE (12:23)
[2018-01-12] MEDS ORDERED: Aminophylline IV* 25 MG/ML 10 ML VIAL ONE (12:23)
[2018-01-12] MEDS: Insulin LISPRO* 1 UNITS UNIT SUBCUT SCH ×3 (12:58→17:48)
[2018-01-12] MEDS ORDERED: Metoprolol Tartrate TAB* 25 MG ONE (14:02)
[2018-01-12] MEDS: Metoprolol Tartrate TAB* 25 MG PO SCH ×2 (14:07→20:53)
[2018-01-12] MEDS: CMCS: Pravastatin (NF) 20 MG TAB PO SCH (14:07)
[2018-01-12] MEDS: QUEtiapine TAB* 25 MG PO SCH (20:50)
[2018-01-12] MEDS: Insulin GLARGINE(*) 1 UNITS UNIT SUBCUT SCH (20:51)
[2018-01-13 06:28] LABS: ABS Basophils 0.1 10^3/ul (0-0.2); ABS Eosinophils 0.2 10^3/ul (0-0.6); ABS Lymphocytes 1.9 10^3/ul (1.0-4.8); ABS Monocytes 0.4 10^3/ul (0-0.8); ABS Neutrophils 5.2 10^3/ul (1.5-7.7); ABS Nucleated RBC 0 10^3/ul; Hematocrit 40 % (42-52); Hemoglobin 13.3 g/dl (14.0-18.0); Lymphocyte % 24.1 % (25-47); Mean Corpuscular HGB Conc 34 g/dl (31-36); Mean Corpuscular Hemoglobin 30 pg (27-31); Mean Corpuscular Volume 90 fL (80-94); Mean Platelet Volume 7 um3 (7.4-10.4); Nucleated Red Blood Cells % 0; Platelet Count 222 10^3/ul (150-450); Red Blood Count 4.39 10^6/ul (4.0-5.4); Red Cell Distribution Width 16 % (10.5-15); White Blood Count 7.9 10^3/ul (3.5-10.8)
[2018-01-13] MEDS: Insulin LISPRO* 1 UNITS UNIT SUBCUT SCH ×2 (08:24→12:04)
[2018-01-13] MEDS: CMCS: Pravastatin (NF) 20 MG TAB PO SCH (08:25)
[2018-01-13] MEDS: Carbidopa/Levodop 10/100 MG TAB(*) PO SCH (08:25)
[2018-01-13] MEDS: Carbidopa/Levodop 25/250MG TAB(*) PO SCH (08:25)
[2018-01-13] MEDS: Famotidine TAB* 20 MG PO SCH (08:25)
[2018-01-13] MEDS: DULoxetine DR CAP* 30 MG CAP.DR PO SCH (08:25)
[2018-01-13] MEDS: Gabapentin CAP(*) 300 MG PO SCH (08:26)
[2018-01-13] MEDS: Omeprazole CAP* 20 MG PO SCH (08:27)
[2018-01-13] MEDS: Metoprolol Tartrate TAB* 25 MG PO SCH (08:27)
--- NOTE | 2018-01-13 08:35 | RAD ---
Edited for charges. INDICATION: Chest pain COMPARISON: Chest x-ray January 10, 2018 TECHNIQUE: A Rest images were acquired following the intravenous injection of 25.7 millicuries of technetium 99m tetrofosmin. Pharmacologic stress images were acquired following the intravenous administration of 25.1 millicuries of technetium 99m tetrofosmin. FINDINGS: There are no defects of the stress-induced or fixed nature. The cardiac chamber size is normal. There are no wall motion abnormalities. The ejection fraction is calculated at 69 percent during rest and 67 during stress. The source images show small right-sided effusion. Suggest follow-up chest x-ray IMPRESSION: NO DEFECTS OF THE STRESS-INDUCED OR FIXED NATURE. SMALL PLEURAL EFFUSION ON THE SOURCE IMAGES. ASSESSMENT: LOW-RISK Based on imaging criteria from ACC/AHA 2002 Guideline Update for the Management of Patients With Chronic Stable Angina Table 23. Noninvasive Risk Stratification. MTDD
[2018-01-13] MEDS: Tiotropium CAP.INH* CAP.INH/18 MCG (USE ORDER SET !) INH SCH (09:01)
[2018-01-13] MEDS: HYDROcodone/ACETAMIN 5-325 MG* 1 TAB PO PRN (12:10)
[2018-01-13] MEDS: Ondansetron INJ* 2 MG/ML VIAL IV PRN (12:11)
[2018-01-13] MEDS: Acetaminophen TAB* 325 MG PO PRN (14:47)
--- NOTE | 2018-01-13 14:56 | PN ---
Subjective Date of Service: 01/13/18 Interval History: Patient seen and examined at bedside. Denies fever, chills, shortness of breath , N/V/D. Pt states that he continues to have mild intermittent chest discomfort , he describes as a sharp pain. Tele: Sinus rhythm, rate 50-70's Family History: Unchanged from Admission Social History: Unchanged from Admission Past Medical History: Unchanged from Admission Objective Active Medications: Acetaminophen (Tylenol Tab*) 650 mg PO Q4H PRN Reason: FEVER/PAIN Hydrocodone Bitart/Acetaminophen ([place] 5-325 Tab*) 1 tab PO Q3H PRN Reason: PAIN - MODERATE Albuterol (Ventolin 2.5 Mg/3 Ml Neb.Miriam*) 2.5 mg INH Q2H PRN Reason: SOB/ WHEEZING Carbidopa/Levodopa (Sinemet 10/100 Tab(*)) 1 tab PO BID DSEIREE Carbidopa/Levodopa (Sinemet 25/250 Tab(*)) 1 tab PO DAILY DESIREE Cyclobenzaprine HCl (Flexeril Tab*) 10 mg PO TID PRN Reason: muscle spasms Dextrose (D50w Syringe 50 Ml*) 12.5 gm IV PUSH .FOR FS < 60 - SS PRN Reason: FS < 60 Duloxetine HCl (Cymbalta Cap*) 30 mg PO DAILY DESIREE Famotidine (Pepcid Tab*) 40 mg PO BID DESIREE Gabapentin (Neurontin Cap(*)) 300 mg PO BID DESIREE Gabapentin (Neurontin Cap(*)) 600 mg PO BEDTIME DESIREE Insulin Glargine (Lantus(*)) 25 units SUBCUT BEDTIME DESIREE Insulin Human Lispro (Humalog*) 0 units SUBCUT AC DESIREE Metoprolol Tartrate (Lopressor Tab*) 25 mg PO BID DESIREE Omeprazole (Prilosec Cap*) 20 mg PO DAILY DESIREE Ondansetron HCl (Zofran Inj*) 4 mg IV Q6H PRN Reason: NAUSEA Pravastatin Sodium (Pravachol (Nf)) 10 mg PO DAILY DESIREE Quetiapine Fumarate (Seroquel Tab*) 25 mg PO BEDTIME DESIREE Tiotropium [place] (Spiriva Cap.Inh*) 1 cap INH DAILY DESIREE Vital Signs - 8 hr 01/13/18 01/13/18 01/13/18 07:22 07:54 08:26 Temperature 97.9 F Pulse Rate 68 Respiratory 16 18 18 Rate Blood Pressure 128/61 (mmHg) O2 Sat by Pulse 92 Oximetry 01/13/18 01/13/18 01/13/18 09:03 09:08 11:24 Temperature 97.1 F Pulse Rate 70 70 58 Respiratory 14 14 16 Rate Blood Pressure 155/58 (mmHg) O2 Sat by Pulse 93 93 94 Oximetry 01/13/18 01/13/18 01/13/18 12:10 14:32 14:41 Temperature 97.8 F Pulse Rate 68 Respiratory 20 18 18 Rate Blood Pressure 112/57 (mmHg) O2 Sat by Pulse 95 Oximetry Oxygen Devices in Use Now: None Appearance: NAD, laying in bed Ears/Nose/Mouth/Throat: Mucous Membranes Moist Respiratory: Symmetrical Chest Expansion and Respiratory Effort, Clear to Auscultation Cardiovascular: NL Sounds; No Murmurs; No JVD, RRR Abdominal: NL Sounds; No Tenderness; No Distention Neurological: Alert and Oriented x 3, NL Muscle Strength and Tone Lines/Tubes/Other Access: Clean, Dry and Intact Peripheral IV - site benign Nutrition: Taking PO's Result Diagrams: 01/13/18 06:16 01/11/18 06:45 Additional Lab and Data: Microbiology and Other Data: Microbiology 01/12/18 15:45 Stool Occult Blood (MUNIRA) - Final Stool Assess/Plan/Problems-Billing Assessment: Mr. Lagunas is a 62 y.o male with PMH significant for CAD, TIA, COPD, DM, HTN, HLD, Parkinson's disease, chronic back pain, GERD, BERNABE, Afib, and tobacco abuse that presented to the ER yesterday from his PCP office with tachycardia. Patient was recently admitted for Afib with RVR and discharged 6 days ago. - Patient Problems (1) Chest pain Code(s): R07.9 - CHEST PAIN, UNSPECIFIED SNOMED Code(s): 56752506 Comment: - Intermittent chest pain - Troponins 0.01,0.02,0.03 - Reports recent cocaine use on wednesday - Low risk stress test (2) Atrial fibrillation with rapid ventricular response Code(s): I48.91 - UNSPECIFIED ATRIAL FIBRILLATION SNOMED Code(s): 754207868971781 Comment: - Pt is asymptomatic, converted to NSR - Patient had heme positive stool last admission 01/01/18 and outpt GI work up pending - Anticoagulation per PCP after completion of GI workup - Guaiac negative now - Continue metoprolol - Continue to hold cardizem as heart rate 50-70's without it (3) COPD (chronic obstructive pulmonary disease) Code(s): J44.9 - CHRONIC OBSTRUCTIVE PULMONARY DISEASE, UNSPECIFIED SNOMED Code(s): 87997214 Comment: - No signs of an exacerbation - Continue spiriva and albuterol nebs prn (4) Morbid obesity Code(s): E66.01 - MORBID (SEVERE) OBESITY DUE TO EXCESS CALORIES SNOMED Code(s ): 542434924 Comment: - Super morbid obesity, BMI 55 - Follow-up with [facility] at discharge (5) Chronic back pain Code(s): M54.9 - DORSALGIA, UNSPECIFIED; G89.29 - OTHER CHRONIC PAIN SNOMED Code(s): 321399446 Comment: - Continue home neurotin, cyclobenzaprine, and prn hydrocodone-APAP (6) Diabetes mellitus Code(s): E11.9 - TYPE 2 DIABETES MELLITUS WITHOUT COMPLICATIONS SNOMED Code(s) : 62552304 Comment: - Glucose 130-280's - Continue lantus (7) Depression Code(s): F32.9 - MAJOR DEPRESSIVE DISORDER, SINGLE EPISODE, UNSPECIFIED SNOMED Code(s): 75939327 Comment: - Denies current suicdal or homicidal thoughts, states he is using outpateint counseling at mental health and that is helping him now - Continue seroquel and cymbalta (8) Drug abuse Code(s): F19.10 - OTHER PSYCHOACTIVE SUBSTANCE ABUSE, UNCOMPLICATED SNOMED Code(s): 55711481 Comment: - Patient admits recent Cocaine and Marijuana use (9) Hx of transient ischemic attack (TIA) Comment: - Not on ASA, due to allergy (10) CAD (coronary artery disease) Code(s): I25.10 - ATHSCL HEART DISEASE OF [place] CORONARY ARTERY W/O ANG PCTRS SNOMED Code(s): 43985772 Comment: - Not on Aspirin due to an allergy - Continue statin (11) GERD (gastroesophageal reflux disease) Code(s): K21.9 - GASTRO-ESOPHAGEAL REFLUX DISEASE WITHOUT ESOPHAGITIS SNOMED Code(s): 671986543 Comment: - Stable - Continue omeprazole (12) Parkinson disease Code(s): G20 - PARKINSON'S DISEASE SNOMED Code(s): 95202776 Comment: - Continue home carbidopa/levadopa (13) Peripheral neuropathy Code(s): G62.9 - POLYNEUROPATHY, UNSPECIFIED SNOMED Code(s): 427672036 Comment: - Continue gabapentin (14) DVT prophylaxis Code(s): PNA6648 - SNOMED Code(s): 374422588 Comment: - No anticoagulation due to recent hx GI bleed, SCD's (15) Full code status Code(s): Z78.9 - OTHER SPECIFIED HEALTH STATUS SNOMED Code(s): 483338486 Status and Disposition: Inpatient. Stable for discharge to home today.
[2018-01-13 15:09] VITALS: BP 112/57
--- NOTE | 2018-01-15 14:40 | DS ---
CC: Claudia Sanchez PA-C, [facility] * DISCHARGE SUMMARY: DATE OF ADMISSION: 01/10/18 DATE OF DISCHARGE: 01/13/18 ATTENDING PHYSICIAN: Dr. Liliane Rico * (dictated by Cristina Hoffman NP). PRIMARY CARE PROVIDER: Claudia Sanchez PA-C, at [facility]. PRIMARY DIAGNOSES: 1. Atrial fibrillation with rapid ventricular response, resolved. 2. Chest pain, suspect secondary to cocaine use. SECONDARY DIAGNOSES: 1. Chronic obstructive pulmonary disease. 2. Super morbid obesity, BMI of 55. 3. Chronic back pain. 4. Diabetes mellitus. 5. Depression. 6. Drug abuse. 7. History of transient ischemic attack. 8. Coronary artery disease. 9. Gastroesophageal reflux disease. 10. Parkinson's disease. 11. Peripheral neuropathy. STUDIES WHILE IN THE HOSPITAL: 1. Chest x-ray on 01/10/18. Radiologist's impression: No evidence for acute disease. 2. Nuclear stress test on 01/12/18 and 01/13/18. Radiologist's impression: No defects of the stress induced or fixed nature. Small pleural effusion on the source images. Assessment: Low risk. Truck Driver Heavy's observation: Resting EKG, normal sinus rhythm 75, QR [address] No acute [address], T wave changes. With administration of adenosine, there were no significant EKG changes of ischemia seen. No significant hemodynamic changes noted. Infrequent transient bradycardia, very brief noted. Conclusion: No Lexiscan-induced myocardial ischemia by EKG criteria. Nuclear portion to be reported separately by Radiology. Brief, transient bradycardia as noted. DISCHARGE MEDICATIONS: Continued home medications: 1. Flexeril 10 mg oral 3 times daily as needed for muscle spasms. 2. Spiriva 1 capsule inhalation daily. 3. Sinemet 10/100 one tablet oral twice daily. 4. Cymbalta 30 mg oral daily. 5. Benadryl 50 mg oral twice daily. 6. Patanol 0.1% ophthalmic 1 drop to both eyes daily. 7. Pravastatin 10 mg oral daily. 8. Sinemet 25/250 one tablet oral daily. 9. Gabapentin 300 mg oral twice daily. 10. Omeprazole 20 mg oral daily. 11. Gabapentin 600 mg oral daily at bedtime. 12. Simethicone 125 mg oral every 8 hours. 13. Lidocaine 5% ointment apply topical 4 times daily. 14. Diclofenac 1% apply topical 4 times daily as needed for pain. 15. Famotidine 40 mg oral twice daily. 16. Naproxen 220 mg oral every 8 hours. 17. Nasonex 2 sprays to both nares daily. 18. Cetirizine 10 mg oral daily. 19. [place] 5/325 one tab oral every 3 hours as needed for moderate pain. 20. Seroquel 25 mg oral daily at bedtime. 21. Metoprolol tartrate 25 mg oral twice daily. 22. Nicotine patch 40 mg transdermal daily. Changed medications: 1. Lantus insulin increased from 25 units to 30 units subcutaneous daily at bedtime. Discontinued home medications: 1. Metformin. 2. Hydrochlorothiazide. 3. Diltiazem. HISTORY OF PRESENT ILLNESS/HOSPITAL COURSE: Mr. Lagunas is a 62-year-old male with past medical history significant for coronary artery disease, TIA, COPD, diabetes mellitus, neuropathy, hypertension, hyperlipidemia, Parkinson's, chronic back pain, GERD, tobacco abuse, obstructive sleep apnea, atrial fibrillation, who was discharged from [facility] on 01/04/18 when he had been found in AFib with RVR. He also at that time had a heme-positive guaiac. He underwent an EGD that was unremarkable, but his anticoagulation was still held due to the possibility of a slow GI bleed and the patient was discharged. The patient is establishing with a new primary care provider, was there for a visit and was found to have the heart rate elevated in the 120s to 130s. He reported he had not been taking his medications as he was unable to get them and his pharmacies were being switched to a pharmacy that could deliver for him, so he did not have to brain picker his medications. The patient developed pain when walking to the doctor's office but denied chest pain. He reported discomfort in his lower extremities which made him stop walking which is pretty common for him. He denied any worse shortness of breath or palpitations and he was sent to the emergency room for further evaluation. While in the emergency room, he received IV diltiazem in addition to Lopressor. The hospitalists were asked to evaluate the patient due to chest pain and an elevated heart rate. He was again found to be in atrial fibrillation. Hospitalists evaluated the patient for admission. While in the hospital, the patient was continued on his beta-elton; due to bradycardia, his diltiazem was actually held. He was continued off anticoagulation due to the fact of a heme-positive stool on his previous admission and it was felt that he needed a further GI workup in the outpatient setting. Due to his chest pain, he underwent a nuclear stress test showing a low risk. It was suspected, his chest pain was secondary to recent cocaine use. He had a urine toxicology positive for marijuana and cocaine. During his stay, his troponins were trended, 0.01, 0.02, and 0.03. He had initial lactic acidosis with a lactic acid of 2.9. This resolved after IV hydration to 1.4. His glucoses were elevated. He was continued on his Lantus and lispro sliding scale. It was felt he was ready for discharge. Mr. Lagunas is stable for discharge. Vital Signs: Temperature 97.8, heart rate 68, respiratory rate 18, O2 sat 95% on room air, blood pressure 112/57. DISCHARGE PLAN: Mr. Lagunas will be discharged to home. Activity as tolerated. He should be on a heart healthy consistent carbohydrate diet. In regards to his atrial fibrillation with RVR, he has been continued on metoprolol for now. His anticoagulation is held until he can complete the rest of his remaining GI outpatient workup and then his anticoagulation should be resumed accordingly. His diltiazem has been held due to some episodes of bradycardia during his stay and his heart rate has been controlled in addition to his blood pressures. He has been encouraged to stop using recreational drugs. In regards to his chest pain, I suspect that it is secondary to his cocaine use and he has been encouraged to stop using cocaine. He initially had a followup appointment with his primary care provider, Claudia Sanchez PA-C, on that was changed to 01/17/18 at 1 p.m. He should also be referred to the [facility] to assist with medication management of his diabetes and for weight loss. He has been asked to return to the emergency room for any chest pain, shortness of breath. This is a summarized report of a complex medical history and hospital stay. For further details, please see the entire medical record. TIME SPENT: Time for this discharge was approximately 50 minutes, greater than half of that was spent with the patient discussing discharge plans and instructions. CONDITION ON DISCHARGE: Stable. Reviewed by AYDEE FLETCHER-C 01/15/18 1737 [id number]/CPS #: [id number] CHARLIE
== END 2018-01-13 17:00 | disposition home or self-care (01) | DRG 309 ==
LOC: ED 17:12 → MEDTELE 20:26 → OBSVTOIN 20:26 → INTOOBSV 20:26 → OBSVTOIN 01-12 12:00
PROVIDERS: ADMIT Hospitalist; ATTEND Internal Medicine
PROC: 4A02XM4 Measurement of Cardiac Total Activity, External Approach (ICD-10-PCS; principal; 2018-01-12)
DX: I48.91 Unspecified atrial fibrillation (principal); J90 Pleural effusion, not elsewhere classified; E11.42 Type 2 diabetes mellitus with diabetic polyneuropathy; E66.01 Morbid (severe) obesity due to excess calories; E87.2 Acidosis; Z68.43 Body mass index [BMI] 50.0-59.9, adult; G20 Parkinson's disease; R07.9 Chest pain, unspecified; J44.9 Chronic obstructive pulmonary disease, unspecified; G89.29 Other chronic pain; M54.9 Dorsalgia, unspecified; K21.9 Gastro-esophageal reflux disease without esophagitis; I25.10 Atherosclerotic heart disease of native coronary artery without angina pectoris; F14.10 Cocaine abuse, uncomplicated; R00.1 Bradycardia, unspecified; E78.5 Hyperlipidemia, unspecified; G47.33 Obstructive sleep apnea (adult) (pediatric); F17.210 Nicotine dependence, cigarettes, uncomplicated; F12.10 Cannabis abuse, uncomplicated; I50.9 Heart failure, unspecified; I11.0 Hypertensive heart disease with heart failure; M19.90 Unspecified osteoarthritis, unspecified site; G43.909 Migraine, unspecified, not intractable, without status migrainosus; F41.9 Anxiety disorder, unspecified; F31.9 Bipolar disorder, unspecified; Z91.5 Personal history of self-harm; Z83.3 Family history of diabetes mellitus; Z86.73 Personal history of transient ischemic attack (TIA), and cerebral infarction without residual deficits; Z88.8 Allergy status to other drugs, medicaments and biological substances; Z87.442 Personal history of urinary calculi; Z82.49 Family history of ischemic heart disease and other diseases of the circulatory system; Z72.89 Other problems related to lifestyle; Z91.09 Other allergy status, other than to drugs and biological substances
CPT/HCPCS: 36415; 71045; 78452; 80048; 80053; 80307; 82270; 83605; 83735; 83880; 84443; 84484; 85025; 85610; 93005; 93017; 94640; 99285; 99406; A9270-GY; A9502; G0378; J0280; J2405; J2785; J3475; J3490

== ENCOUNTER 2018-07-17 11:01 | Emergency (ER) | payer MEDICARE, MEDICAID ==
--- NOTE | 2018-07-17 12:04 | ED ---
HPI Chest Pain - HPI Summary HPI Summary: This patient is a 62 year old M BIBA to ED with a chief complaint of CP. The CC is described as intermittent, sharp and steady, then worsened earlier this morning, and radiating to the L shoulder and neck. The patient rates the pain 8/ 10 in severity. Symptoms aggravated by nothing. Symptoms alleviated by ASA (324 mg) and nitro x1 with added O2 given by EMS en route. Patient reports dizziness , weakness, blurred vision, SOB, and bilateral LE edema. - History of Current Complaint Chief Complaint: EDChestPainROMI Time Seen by Provider: 07/17/18 11:21 Hx Obtained From: Patient Onset/Duration: Started Hours Ago, Still Present Timing: Intermittent Initial Severity: Severe Current Severity: Severe Pain Intensity: 8 Pain Scale Used: 0-10 Numeric Chest Pain Radiates: Yes Chest Pain Radiates To:: Shoulder - left, Neck - left-side Character: Sharp/Stabbing Aggravating Factor(s): Nothing Alleviating Factor(s): Other: - ASA (324 mg) and nitro x1 with added O2 given by EMS en route Associated Signs and Symptoms: Positive: Other: - Patient reports dizziness, weakness, blurred vision, SOB, and bilateral LE edema. - Additional Pertinent History Primary Care Physician: KAYDEN - Allergy/Home Medications Allergies/Adverse Reactions: Allergies Allergy/AdvReac Type Severity Reaction Status Date / Time aspirin Allergy GI Upset Verified 07/17/18 11:30 naproxen Allergy See Comment Verified 07/17/18 11:30 wool Allergy Itching Verified 07/17/18 11:30 Home Medications: Home Medications Hydrochlorothiazide TAB* [Hydrodiuril TAB*] 25 mg PO DAILY 07/17/18 [History Confirmed 07/17/18] Insulin GLARGINE(*) [Lantus(*)] 35 units SUBCUT BEDTIME 07/17/18 [History Confirmed 07/17/18] PMH/Surg Hx/FS Hx/Imm Hx Endocrine/Hematology History: Reports: Hx Diabetes - neuropathy Cardiovascular History: Reports: Hx Angina, Hx Congestive Heart Failure, Hx Hypercholesterolemia, Hx Hypertension, Other Cardiovascular Problems/Disorders - "Heart Disease" Denies: Hx Myocardial Infarction Respiratory History: Reports: Hx Chronic Obstructive Pulmonary Disease (COPD), Hx Sleep Apnea GI History: Reports: Hx Gastroesophageal Reflux Disease, Other GI Disorders - "Hernia" History: Reports: Hx Kidney Stones, Hx Renal Disease - KIDNEY STONES BILATERALLY Musculoskeletal History: Reports: Hx Arthritis, Hx Back Problems, Hx Orthopedic Injury - Herniated discs, coccyx fracture, "degenerative spine" Sensory History: Denies: Hx Contacts or Glasses, Hx Hearing Aid Opthamlomology History: Denies: Hx Contacts or Glasses Neurological History: Reports: Hx Migraine, Hx Transient Ischemic Attacks (TIA) - x5, Other Neuro Impairments/Disorders - Parkinsons, Bilateral leg neurophathy Psychiatric History: Reports: Hx Anxiety, Hx Depression, Hx Inpatient Treatment , Hx Community Mental Health Tx, Hx Bipolar Disorder, Hx Suicide Attempt - OD Denies: Hx Eating Disorder, Hx of Violent Episodes Against Others - Surgical History Surgery Procedure, Year, and Place: Appendectomy Infectious Disease History: No Infectious Disease History: Denies: Traveled Outside the [place] in Last 30 Days - Family History Known Family History: Positive: Cardiac Disease, Hypertension, Diabetes - Social History Alcohol Use: Occasionally Hx Substance Use: Yes Substance Use Type: Reports: Cocaine, Marijuana Substance Use Comment - Amount & Last Used: 1 joint a day Hx Tobacco Use: Yes Smoking Status (MU): Heavy Every Day Tobacco Smoker Type: Cigarettes Review of Systems Positive: Blurred Vision Positive: Chest Pain - radiating to the L shoulder and neck Positive: Shortness Of Breath Positive: Edema - bilateral LE edema Neurological: Other - dizziness Positive: Weakness All Other Systems Reviewed And Are Negative: Yes Physical Exam - Summary Physical Exam Summary: Appearance: The patient is morbidly obese and is in no acute distress and in no acute pain. Skin: The skin is warm and dry and skin color reflects adequate perfusion. HEENT: The head is normocephalic and atraumatic. The pupils are equal and reactive. The conjunctivae are clear and without drainage. Nares are patent and without drainage. Mouth reveals moist mucous membranes and the throat is without erythema and exudate. The external ears are intact. The ear canals are patent and without drainage. The tympanic membranes are intact. Neck: The neck is supple with full range of motion and non-tender. There are no carotid bruits. There is no neck vein distension. Respiratory: Chest is non-tender. Lungs are clear to auscultation and breath sounds are symmetrical and equal. Cardiovascular: Heart is regular rate and rhythm. There is no murmur or rub auscultated. There is no peripheral edema and pulses are symmetrical and equal. Abdomen: The abdomen is soft and has epigastric tenderness. There are normal bowel sounds heard in all four quadrants and there is no organomegaly palpated. Musculoskeletal: There is no back tenderness noted. Extremities are non-tender with full range of motion. There is good capillary refill. There is no peripheral edema or calf tenderness elicited. Neurological: Patient is alert and oriented to person, place and time. The patient has symmetrical motor strength in all four extremities. Cranial nerves are grossly intact. Deep tendon reflexes are symmetrical and equal in all four extremities. Psychiatric: The patient has an appropriate affect and does not exhibit any anxiety or depression. Triage Information Reviewed: Yes Vital Signs On Initial Exam: Initial Vitals Temp Pulse Resp BP Pulse Ox 98.2 F 93 22 116/77 94 07/17/18 11:12 07/17/18 11:12 07/17/18 11:12 07/17/18 11:12 07/17/18 11:12 Vital Signs Reviewed: Yes Diagnostics - Vital Signs Vital Signs Temp Pulse Resp BP Pulse Ox 07/17/18 11:12 98.2 F 93 22 116/77 94 - Laboratory Result Diagrams: 07/17/18 12:18 07/17/18 12:18 Lab Statement: Any lab studies that have been ordered have been reviewed, and results considered in the medical decision making process. - Radiology CXR Radiology Interpretation Completed By: Radiologist - No radiographic evidence for acute cardiopulmonary abnormality on this portable chest x-ray. ED physician has reviewed this radiology report. - CT Abd/pel CT CT Interpretation Completed By: Radiologist - 1. Diverticulosis without focal inflammatory change characteristic of diverticulitis. 2. Stable nonobstructive 4 mm calculus in the left kidney. 3. Subpleural parenchymal thickening of the right worse than left lower lung could be seen in the setting of early interstitial lung disease. 4. Additional chronic and degenerative changes unlikely to be directly related to the patient's current clinical presentation. ED physician has reviewed this radiology report. - EKG 1134 Cardiac Rate: NL - 87 BPM EKG Rhythm: Sinus Rhythm ST Segment: Normal Ectopy: None EKG Interpretation: No STEMI Re-Evaluation - Re-Evaluation First Eval Re-Evaluation Time: 13:56 Comment: The patient reports he has epigastric tenderness. Second Eval Re-Evaluation Time: 15:35 Comment: Discussed CT results with the patient. The patient is now complaining of feeling pruritic all over. Chest Pain Course/Dx - Course Course Of Treatment: Mr. Lagunas presented with a multitude of vague complaints the most prominent of which was epigastric pain. He was kept on a monitor and labs were obtained including a delayed troponin. His vitals were stable and within normal limits aside from moderate hypertension. CT of his abdomen was unremarkable. He did improve some with sucralfate and Protonix but also required a shot of Dilaudid for complete improvement. I recommended follow -up closely I don't think anything dangerous is happening at this time. - Chest Pain Differential Diagnosis/HQI/PQRI: Other: - epigastric pain - Diagnoses Provider Diagnoses: Epigastric pain Discharge - Sign-Out/Discharge Documenting (check all that apply): Patient Departure - Discharge - Discharge Plan Condition: Stable Disposition: HOME Patient Education Materials: Epigastric Pain (ED) Referrals: Nnio Marte DO [Primary Care Provider] - (Please follow up with your primary care physician in 2-3 days.) Additional Instructions: Please follow up with your primary care physician in 2-3 days. RETURN TO THE ED FOR ANY NEW OR WORSENING SYMPTOMS. - Billing Disposition and Condition Condition: STABLE Disposition: Home - Attestation Statements Document Initiated by Jodi: Yes Documenting Scribe: Vahe Monsivais Provider For Whom Jodi is Documenting (Include Credential): Gian Ashby MD Scribe Attestation: Vahe Torrez, scribed for Gian Ashby MD on 07/17/18 at 2113. Scribe Documentation Reviewed: Yes Provider Attestation: The documentation as recorded by the Vahe ramirez accurately reflects the service I personally performed and the decisions made by me, Gian Ashby MD
[2018-07-17 12:29] LABS: ABS Basophils 0.1 10^3/ul (0-0.2); ABS Eosinophils 0.3 10^3/ul (0-0.6); ABS Lymphocytes 2.5 10^3/ul (1.0-4.8); ABS Monocytes 0.7 10^3/ul (0-0.8); ABS Neutrophils 6.9 10^3/ul (1.5-7.7); ABS Nucleated RBC 0 10^3/ul; Eosinophil % 2.4 % (0-6); Hematocrit 47 % (42-52); Hemoglobin 15.9 g/dl (14.0-18.0); Lymphocyte % 23.8 % (25-47); Mean Corpuscular HGB Conc 34 g/dl (31-36); Mean Corpuscular Hemoglobin 31 pg (27-31); Mean Corpuscular Volume 91 fL (80-94); Mean Platelet Volume 7.3 um3 (7.4-10.4); Nucleated Red Blood Cells % 0.2; Platelet Count 245 10^3/ul (150-450); Red Blood Count 5.13 10^6/ul (4.00-5.40); Red Cell Distribution Width 15 % (10.5-15); White Blood Count 10.4 10^3/ul (3.5-10.8)
[2018-07-17 12:34] LABS: INR 0.94 (0.77-1.02)
[2018-07-17 12:46] LABS: EGFR Non-African American 73.4 (>60)
--- NOTE | 2018-07-17 13:02 | RAD ---
INDICATION: Chest pain COMPARISON: Most recent comparison chest x-rays dated January 10, 2018 TECHNIQUE: Single AP portable view of the chest was obtained. FINDINGS: Image quality is compromised due to the relative inferiority of a portable chest x-ray. The heart and mediastinum exhibit normal size and contour. The lungs are grossly clear. There is no evidence of a large pleural effusion. Visualized bones are normal for the patient's age. IMPRESSION: No radiographic evidence for acute cardiopulmonary abnormality on this portable chest x-ray.
[2018-07-17] MEDS ORDERED: Sucralfate TAB* 1 GM PO ONE (13:53)
--- NOTE | 2018-07-17 14:56 | RAD ---
CLINICAL HISTORY: Epigastric pain COMPARISON: Similar CT examination dated December 30, 2017 TECHNIQUE: Noncontrast CT examination of the abdomen and pelvis from the lung bases through the initial tuberosities. FINDINGS: VISUALIZED LUNG BASES: There is subpleural parenchymal density along the right worse than left dependent lower lungs. This appearance is not changed significantly since the previous CT examination. There is also stable bilateral fat density thickening of the pleura. ABDOMEN AND PELVIS: Evaluation of the solid organs and vasculature is limited without intravenous contrast. The liver, spleen, pancreas and adrenal glands are grossly normal in appearance. The gallbladder is normal. At the mid-level left collecting system there is a stable nonobstructing 4 mm calculus. Otherwise the kidneys are normal in appearance without focal mass, calcification or signs of hydronephrosis. Evaluation of the gastrointestinal tract is limited without oral contrast. The small and large bowel are not distended.The appendix is not discretely visualized. There are distal colonic and rectosigmoid diverticula but do not exhibit focal inflammatory changes characteristic of acute diverticulitis. There is no gross retroperitoneal or mesenteric lymphadenopathy. The pelvic viscera is normal in appearance. The moderately calcified abdominal aorta and iliac arteries are normal in course and diameter. Degenerative changes include multilevel loss of intervertebral disc height involving the lower thoracic and lumbar spine.There are no sinister bone lesions. IMPRESSION: 1. Diverticulosis without focal inflammatory change characteristic of diverticulitis. 2. Stable nonobstructive 4 mm calculus in the left kidney. 3. Subpleural parenchymal thickening of the right worse than left lower lung could be seen in the setting of early interstitial lung disease. 4. Additional chronic and degenerative changes unlikely to be directly related to the patient's current clinical presentation.
[2018-07-17] MEDS ORDERED: Pantoprazole IV* 40 MG IV ONE (15:39)
[2018-07-17] MEDS ORDERED: HYDROmorphone INJ* 1 MG/ML CARPUJECT SYRINGE IV ONE (15:39)
[2018-07-17] MEDS ORDERED: HYDROmorphone INJ1* 1 MG/ML SYRINGE ONE (16:22)
[2018-07-17 17:23] VITALS: BP 179/97
== END 2018-07-17 17:23 | disposition home or self-care (01) ==
LOC: ED 11:01
DX: R10.13 Epigastric pain (principal); E11.40 Type 2 diabetes mellitus with diabetic neuropathy, unspecified; I50.9 Heart failure, unspecified; J44.9 Chronic obstructive pulmonary disease, unspecified; Z87.442 Personal history of urinary calculi; E78.00 Pure hypercholesterolemia, unspecified; I10 Essential (primary) hypertension; K21.9 Gastro-esophageal reflux disease without esophagitis; F17.210 Nicotine dependence, cigarettes, uncomplicated
CPT/HCPCS: 36415; 71045; 74176; 80053; 83605; 83880; 84484; 85025; 85610; 93005; 96374; 96375; 99284; A9270-GY; J1170

== ENCOUNTER 2019-02-01 01:54 | Emergency (ER) | payer MEDICARE, MEDICAID ==
--- NOTE | 2019-02-01 02:19 | ED ---
Lower Extremity - HPI Summary HPI Summary: This patient is a 63 year old M brought in by ambulance to ED with a chief complaint of bilateral leg pain from the foot to his waist since a few days ago. The patient rates the pain 7/10 in severity. Symptoms aggravated by touch. Symptoms alleviated by nothing. PMHx of DM and neuropathy. He reports that this pain is similar to a previous episode due to neuropathy. He hasnt taken Gabapentin for a couple months. He currently doesnt have insulin either and hasnt checked his sugar level. He lives by himself at home, doesn't drive, and doesnt have a visiting nurse. He gets his food from [employer]. - History of Current Complaint Chief Complaint: EDExtremityLower Stated Complaint: LEG PAIN PER EMS Time Seen by Provider: 02/01/19 02:00 Hx Obtained From: Patient Onset of Pain: Days - since a few days ago Onset/Duration: Still Present Severity Initially: Moderate Severity Currently: Moderate Pain Intensity: 7 Pain Scale Used: 0-10 Numeric Timing: Constant, Lasting Days Location: Is Discrete @ - from foot bilaterally, up to his waist Aggravating Factor(s): Other - touch Alleviating Factor(s): Nothing - Allergies/Home Medications Allergies/Adverse Reactions: Allergies Allergy/AdvReac Type Severity Reaction Status Date / Time aspirin Allergy GI Upset Verified 07/17/18 11:30 naproxen Allergy See Comment Verified 07/17/18 11:30 wool Allergy Itching Verified 07/17/18 11:30 PMH/Surg Hx/FS Hx/Imm Hx Endocrine/Hematology History: Reports: Hx Diabetes - neuropathy Cardiovascular History: Reports: Hx Angina, Hx Congestive Heart Failure, Hx Hypercholesterolemia, Hx Hypertension, Other Cardiovascular Problems/Disorders - "Heart Disease" Denies: Hx Myocardial Infarction Respiratory History: Reports: Hx Chronic Obstructive Pulmonary Disease (COPD), Hx Sleep Apnea GI History: Reports: Hx Gastroesophageal Reflux Disease, Other GI Disorders - "Hernia" History: Reports: Hx Kidney Stones, Hx Renal Disease - KIDNEY STONES BILATERALLY Musculoskeletal History: Reports: Hx Arthritis, Hx Back Problems, Hx Orthopedic Injury - Herniated discs, coccyx fracture, "degenerative spine" Sensory History: Denies: Hx Contacts or Glasses, Hx Hearing Aid Opthamlomology History: Denies: Hx Contacts or Glasses Neurological History: Reports: Hx Migraine, Hx Transient Ischemic Attacks (TIA) - x5, Other Neuro Impairments/Disorders - Parkinsons, Bilateral leg neurophathy Psychiatric History: Reports: Hx Anxiety, Hx Depression, Hx Inpatient Treatment , Hx Community Mental Health Tx, Hx Bipolar Disorder, Hx Suicide Attempt - OD Denies: Hx Eating Disorder, Hx of Violent Episodes Against Others - Surgical History Surgery Procedure, Year, and Place: Appendectomy Infectious Disease History: No Infectious Disease History: Denies: Traveled Outside the [place] in Last 30 Days - Family History Known Family History: Positive: Cardiac Disease, Hypertension, Diabetes - Social History Alcohol Use: Occasionally Hx Substance Use: Yes Substance Use Type: Reports: Cocaine, Marijuana Substance Use Comment - Amount & Last Used: 1 joint a day Hx Tobacco Use: Yes Smoking Status (MU): Heavy Every Day Tobacco Smoker Type: Cigarettes Review of Systems Negative: Fever Positive: Other - pain from bilateral feet to waist All Other Systems Reviewed And Are Negative: Yes Physical Exam - Summary Physical Exam Summary: VITAL SIGNS: Reviewed. GENERAL: Patient is a morbidly obese and nourished MALE who is lying comfortable in the stretcher. Patient is not in any acute respiratory distress. HEAD AND FACE: No signs of trauma. No ecchymosis, hematomas or skull depressions. No sinus tenderness. EYES: PERRLA, EOMI x 2, No injected conjunctiva, no nystagmus. EARS: Hearing grossly intact. Ear canals and tympanic membranes are within normal limits. MOUTH: Oropharynx within normal limits. NECK: Supple, trachea is midline, no adenopathy, no JVD, no carotid bruit, no c- spine tenderness, neck with full ROM. CHEST: Symmetric, no tenderness at palpation LUNGS: Clear to auscultation bilaterally. No wheezing or crackles. CVS: Regular rate and rhythm, S1 and S2 present, no murmurs or gallops appreciated. ABDOMEN: Soft, non-tender. Abdomen is distended. No rebound no guarding, and no masses palpated. Bowel sounds are normal. EXTREMITIES: FROM in all major joints, no edema, no cyanosis or clubbing. Has bilateral leg tenderness without redness or swelling. NEURO: Alert and oriented x 3. No acute neurological deficits. Speech is normal and follows commands. SKIN: Dry and warm Triage Information Reviewed: Yes Vital Signs On Initial Exam: Initial Vitals Temp Pulse Resp BP Pulse Ox 97.3 F 90 20 136/106 93 02/01/19 01:57 02/01/19 01:57 02/01/19 01:57 02/01/19 01:57 02/01/19 01:57 Vital Signs Reviewed: Yes Diagnostics - Vital Signs Vital Signs Temp Pulse Resp BP Pulse Ox 02/01/19 01:57 97.3 F 90 20 136/106 93 - Laboratory Result Diagrams: 02/01/19 02:37 02/01/19 02:37 Lab Statement: Any lab studies that have been ordered have been reviewed, and results considered in the medical decision making process. Re-Evaluation - Re-Evaluation First Eval Re-Evaluation Time: 03:51 Comment: Discussed results and plan for further care. Patient is doing alright in the ER. Lower Extremity Course/Dx - Course Assessment/Plan: This patient is a 63 year old M brought in by ambulance to ED with a chief complaint of bilateral leg pain from the foot to his waist since a few days ago. The patient has multiple problems and is non-compliant with his medications. He doesnt see his doctor. In the ED course, the patient was given Gabapentin and insulin. This patient will be discharged with dx of DM and neuropathy. Patient understands and agrees with this plan. - Diagnoses Differential Diagnosis/HQI/PQRI: Positive: Other - DM and neuropathy Provider Diagnoses: Diabetes, Neuropathy Discharge - Sign-Out/Discharge Documenting (check all that apply): Patient Departure - discharge Patient Received Moderate/Deep Sedation with Procedure: No - Discharge Plan Condition: Stable Disposition: HOME Prescriptions: Gabapentin CAP(*) [Neurontin 300 CAP(*)] 300 mg PO BID #60 cap Insulin GLARGINE(*) [Lantus(*)] 35 units SUBCUT Q24H 30 Days #1 vial Patient Education Materials: Type 2 Diabetes in the Older Adult (ED), Peripheral Neuropathy (ED) Referrals: Nino Marte DO [Primary Care Provider] - 3 Days Additional Instructions: PLEASE RETURN TO THE ED TO IMMEDIATELY FOR WORSENING OR CONCERNING SYMPTOMS. - Attestation Statements Document Initiated by Scribe: Yes Documenting Scribe: Vahe Monsivais Provider For Whom Scribe is Documenting (Include Credential): Adonay Farris MD Scribe Attestation: Vahe Torrez, scribed for Adonay Farris MD on 02/01/19 at 0426. Status of Scribe Document: Ready
[2019-02-01] MEDS ORDERED: Gabapentin TAB(NF) 600 MG PO ONE (02:23)
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
[2019-02-01] MEDS ORDERED: Gabapentin CAP(*) 300 MG PO ONE (03:00)
[2019-02-01 03:13] LABS: ABS Basophils 0.1 10^3/ul (0-0.2); ABS Eosinophils 0.3 10^3/ul (0-0.6); ABS Lymphocytes 2.9 10^3/ul (1.0-4.8); ABS Monocytes 0.7 10^3/ul (0-0.8); ABS Neutrophils 4.3 10^3/ul (1.5-7.7); ABS Nucleated RBC 0 10^3/ul; Eosinophil % 3.8 %; Hematocrit 50 % (36-46); Hemoglobin 16.6 g/dL (14.0-18.0); Lymphocyte % 35.2 %; Mean Corpuscular HGB Conc 34 g/dL (31-36); Mean Corpuscular Hemoglobin 31 pg (27-31); Mean Corpuscular Volume 92 fL (80-94); Nucleated Red Blood Cells % 0.1; Platelet Count 204 10^3/uL (150-450); Red Cell Distribution Width 15 % (10.5-15); White Blood Count 8.3 10^3/uL (3.5-10.8)
[2019-02-01 03:23] LABS: INR 0.89 (0.77-1.02)
[2019-02-01 03:43] LABS: ALT 13 U/L (7-52); Albumin 3.8 g/dL (3.2-5.2); Albumin/Globulin Ratio 1.4 (1-3); Alkaline Phosphatase 69 U/L (34-104); BUN/Creatinine Ratio 19.8 (8-20); Blood Urea Nitrogen 19 mg/dL (6-24); CO2 Carbon Dioxide 29 mmol/L (22-32); Calcium 9.5 mg/dL (8.6-10.3); Chloride 99 mmol/L (101-111); EGFR Non-African American 79.4 (>60); Globulin 2.8 g/dL (2-4); Glucose 311 mg/dL (70-100); Sodium 136 mmol/L (135-145); Total Protein 6.6 g/dL (6.4-8.9)
[2019-02-01] MEDS ORDERED: Insulin REGULAR(*) 1 UNITS UNIT SUBCUT ONE (03:47)
[2019-02-01 03:57] LABS: Anion Gap 8 mmol/L (2-11)
[2019-02-01 05:01] VITALS: BP 132/53
== END 2019-02-01 05:01 | disposition home or self-care (01) ==
LOC: ED 01:54
DX: E11.40 Type 2 diabetes mellitus with diabetic neuropathy, unspecified (principal); Z88.6 Allergy status to analgesic agent; I11.0 Hypertensive heart disease with heart failure; I50.9 Heart failure, unspecified; E78.00 Pure hypercholesterolemia, unspecified; J44.9 Chronic obstructive pulmonary disease, unspecified; G47.30 Sleep apnea, unspecified; K21.9 Gastro-esophageal reflux disease without esophagitis; M19.90 Unspecified osteoarthritis, unspecified site; Z86.73 Personal history of transient ischemic attack (TIA), and cerebral infarction without residual deficits; G20 Parkinson's disease; Z91.5 Personal history of self-harm; F17.210 Nicotine dependence, cigarettes, uncomplicated; E66.01 Morbid (severe) obesity due to excess calories; Z68.42 Body mass index [BMI] 45.0-49.9, adult
CPT/HCPCS: 36415; 80053; 83735; 85025; 85610; 85730; 96372; 99283; A9270-GY

== ENCOUNTER 2022-09-11 01:07 | Observation (INO) ==
[2022-09-11 02:09] LABS: ABS Lymphocytes 1.7 10^3/ul (1.0-4.8); ABS Monocytes 1.2 10^3/ul (0-0.8); ABS Neutrophils 9.6 10^3/ul (1.5-7.7); Eosinophil % 0.2 %; Hematocrit 51 % (42-52); Hemoglobin 17.2 g/dL (14.0-18.0); Lymphocyte % 13.6 %; Mean Corpuscular HGB Conc 33 g/dL (31-36); Mean Corpuscular Hemoglobin 31 pg (27-31); Mean Corpuscular Volume 92 fL (80-94); Mean Platelet Volume 7.7 fL (7.4-10.4); Platelet Count 250 10^3/uL (150-450); Red Blood Count 5.57 10^6 /uL (4.18-5.48); Red Cell Distribution Width 14 % (10-15); White Blood Count 12.6 10^3/uL (3.5-10.8)
[2022-09-11 02:31] LABS: Albumin/Globulin Ratio 1.3 (1-3); Calcium 9.6 mg/dL (8.6-10.3); Potassium 4.2 mmol/L (3.5-5.0); eGFR CKD-EPI 61.5 (>60)
[2022-09-11 03:16] LABS: Urine Appearance Cloudy; Urine Bilirubin Negative (Negative); Urine Blood 2+ (Negative); Urine Color Yellow; Urine Glucose 1+(50 mg/dL) (Negative); Urine Ketones 1+ (Negative); Urine Nitrite Negative (Negative); Urine Protein 3+(>=500 mg/dL) (Negative); Urine Urobilinogen Negative (Negative)
[2022-09-11 03:21] LABS: Urine Bacteria Absent (Absent); Urine Granular Casts Present (Absent); Urine Red Blood Cell 3+(>10/hpf) (Absent); Urine White Blood Cell 3+(>20/hpf) (Absent)
[2022-09-11 03:30] LABS: Urine Benzodiazepine Screen None Detected (None Detect); Urine Cannabinoids Screen Presumptive Positive (None Detect); Urine Opiates Screen None Detected (None Detect)
[2022-09-11 03:34] LABS: High Sensitivity Troponin 1 Hr 19 pg/mL (<20)
[2022-09-11] MEDS ORDERED: cefTRIAXone 1 gm/50 mL D5W 1 GM/50 ML BAG IV ONE (03:42)
[2022-09-11] MEDS ORDERED: Dextrose 50% Syringe 50 ml 25 GM/50 ML SYRINGE IV PUSH PRN (04:19)
[2022-09-11] MEDS ORDERED: NS 0.9% 1000 ml BAG 1,000 ML IV ONE (04:23)
[2022-09-11] MEDS ORDERED: Enoxaparin 40 MG/0.4 ML SYR SUBCUT SCH (06:00)
[2022-09-11] MEDS: dilTIAZem 30 MG TAB PO SCH ×3 (10:20→20:46)
[2022-09-11] MEDS ORDERED: NS 0.9% 1000 ml BAG 1,000 ML IV SCH (12:15)
[2022-09-11] MEDS ORDERED: Perflutren Lipid Microsphere 3 ML VIAL ONE (15:22)
[2022-09-12] MEDS: cefTRIAXone 1 gm/50 mL D5W 1 GM/50 ML BAG IV SCH (05:55)
[2022-09-12] MEDS: dilTIAZem 30 MG TAB PO SCH (05:57)
[2022-09-12 07:12] LABS: ABS Basophils 0.1 10^3/ul (0-0.2); ABS Eosinophils 0.2 10^3/ul (0-0.6); ABS Lymphocytes 2.3 10^3/ul (1.0-4.8); ABS Monocytes 0.9 10^3/ul (0-0.8); ABS Neutrophils 6.8 10^3/ul (1.5-7.7); Eosinophil % 1.9 %; Hematocrit 51 % (42-52); Hemoglobin 17.3 g/dL (14.0-18.0); Lymphocyte % 22.2 %; Mean Corpuscular HGB Conc 34 g/dL (31-36); Mean Corpuscular Hemoglobin 32 pg (27-31); Mean Corpuscular Volume 92 fL (80-94); Mean Platelet Volume 7.6 fL (7.4-10.4); Nucleated Red Blood Cells % 0.1; Platelet Count 209 10^3/uL (150-450); Red Cell Distribution Width 14 % (10-15); White Blood Count 10.3 10^3/uL (3.5-10.8)
[2022-09-12 07:35] LABS: Calcium 8.9 mg/dL (8.6-10.3); Magnesium 1.9 mg/dL (1.9-2.7); Potassium 3.8 mmol/L (3.5-5.0); eGFR CKD-EPI 88.8 (>60)
[2022-09-12] MEDS ORDERED: Insulin GLARGINE 100 un/ml 10 ml VIAL SUBCUT SCH (21:00)
[2022-09-12] MEDS: Carbidopa/Levodop 25/100 MG TAB PO SCH (21:25)
[2022-09-13] MEDS: cefTRIAXone 1 gm/50 mL D5W 1 GM/50 ML BAG IV SCH (04:30)
[2022-09-13 06:58] LABS: ABS Basophils 0.1 10^3/ul (0-0.2); ABS Eosinophils 0.3 10^3/ul (0-0.6); ABS Lymphocytes 1.4 10^3/ul (1.0-4.8); ABS Monocytes 0.6 10^3/ul (0-0.8); Eosinophil % 3.5 %; Hematocrit 45 % (42-52); Hemoglobin 15.1 g/dL (14.0-18.0); Lymphocyte % 18.7 %; Mean Corpuscular HGB Conc 33 g/dL (31-36); Mean Corpuscular Hemoglobin 31 pg (27-31); Mean Corpuscular Volume 92 fL (80-94); Mean Platelet Volume 7.6 fL (7.4-10.4); Platelet Count 203 10^3/uL (150-450); Red Blood Count 4.91 10^6 /uL (4.18-5.48); Red Cell Distribution Width 14 % (10-15); White Blood Count 7.3 10^3/uL (3.5-10.8)
[2022-09-13 07:34] LABS: Calcium 8.3 mg/dL (8.6-10.3); Magnesium 1.8 mg/dL (1.9-2.7); Potassium 3.9 mmol/L (3.5-5.0); eGFR CKD-EPI 76.2 (>60)
[2022-09-13] MEDS: Carbidopa/Levodop 25/100 MG TAB PO SCH (21:39)
[2022-09-13] MEDS: Polyethylene Glycol 3350 17 GM PACKET PO SCH (21:40)
[2022-09-13] MEDS: Insulin GLARGINE 100 un/ml 10 ml VIAL SUBCUT SCH (21:42)
[2022-09-14] MEDS: cefTRIAXone 1 gm/50 mL D5W 1 GM/50 ML BAG IV SCH (04:48)
[2022-09-14 08:05] LABS: ABS Basophils 0.1 10^3/ul (0-0.2); ABS Eosinophils 0.3 10^3/ul (0-0.6); ABS Monocytes 0.6 10^3/ul (0-0.8); ABS Neutrophils 5.1 10^3/ul (1.5-7.7); Eosinophil % 3.3 %; Hematocrit 50 % (42-52); Hemoglobin 16.4 g/dL (14.0-18.0); Lymphocyte % 24.9 %; Mean Corpuscular HGB Conc 33 g/dL (31-36); Mean Corpuscular Hemoglobin 30 pg (27-31); Mean Corpuscular Volume 92 fL (80-94); Mean Platelet Volume 7.8 fL (7.4-10.4); Platelet Count 252 10^3/uL (150-450); Red Blood Count 5.41 10^6 /uL (4.18-5.48); Red Cell Distribution Width 14 % (10-15)
[2022-09-14 08:10] LABS: Potassium 4.4 mmol/L (3.5-5.0); eGFR CKD-EPI 78.8 (>60)
[2022-09-14] MEDS: Polyethylene Glycol 3350 17 GM PACKET PO SCH ×2 (08:12→21:45)
[2022-09-14] MEDS: Carbidopa/Levodop 25/100 MG TAB PO SCH (21:45)
[2022-09-14] MEDS: Insulin GLARGINE 100 un/ml 10 ml VIAL SUBCUT SCH (21:46)
[2022-09-15] MEDS: cefTRIAXone 1 gm/50 mL D5W 1 GM/50 ML BAG IV SCH (06:14)
[2022-09-15] MEDS ORDERED: DULoxetine DR 30 mg CAP PO SCH (10:00)
[2022-09-15] MEDS ORDERED: Carbidopa/Levodop 10/100 MG TAB PO SCH (10:00)
[2022-09-15] MEDS: Polyethylene Glycol 3350 17 GM PACKET PO SCH (10:16)
[2022-09-15 11:37] VITALS: BP 158/93
== END 2022-09-15 15:30 | disposition home or self-care (01) ==
LOC: ED 01:07 → EDHOLD 01:07 → SUATTDRO 04:13 → MEDTELE 22:10
PROVIDERS: ADMIT Internal Medicine; ATTEND Internal Medicine